=== PATIENT | male | born 1940 | race Caucasian/White ===

== ENCOUNTER 2016-03-03 09:18 | Emergency (ER) | payer OTHER, MEDICARE ==
[2016-03-03 09:35] VITALS: TEMP 98
--- NOTE | 2016-03-03 10:16 | UCPHY ---
H & P Time Seen by Provider: 03/03/16 10:07 Patient Type: Established HPI/ROS: This patient presents with a chief complaint of pain in his right foot which he localizes to the plantar surface in the area of the 1st MP joint. This been present for or almost a week now and is mostly present when he walks. In addition he has pain in his right elbow which has also been present for a week and has increased with movement. Finally he has an abrasion on his right 4th toe on the extensor surface which occurred this morning when he banged. This is not particularly painful. He denies any fever or constitutional symptoms. Smoking Status: Former smoker Physical Exam: This patient is alert although his memory seems generally poor. His gait is antalgic. He has obvious moderate to severe psoriasis. Examination of the foot reveals callus formation with some erythema and some scales which have extended into the subdermal area. This area is not particularly swollen but it is tender. The extensor surface is unremarkable. Examination of the elbow reveals several abrasions which are relatively new surrounded by erythema extending 6 or 7 cm in radius. Constitutional: Initial Vital Signs Temperature (C) 36.6 C 03/03/16 09:25 Heart Rate 78 03/03/16 09:25 Respiratory Rate 20 03/03/16 09:25 Blood Pressure 117/87 H 03/03/16 09:25 O2 Sat (%) 96 03/03/16 09:25 O2 Delivery Mode Room Air Allergies/Adverse Reactions: Sulfa (Sulfonamide Antibiotics) Allergy (Intermediate, Verified 03/10/15 10:52) Home Medications: Medication Instructions Recorded Aspirin [Aspirin 81mg] 81 mg PO MOWEFR@04/18/11 Carvedilol [Coreg] 6.25 mg PO BIDMEAL 04/18/11 Clopidogrel Bisulfate [Plavix] 75 mg PO DAILY 04/18/11 Cyanocobalamin (Vitamin B-12) 2,000 mcg PO DAILY 04/18/11 [Vitamin B-12] DULoxetine [Cymbalta] 30 mg PO DAILY 04/18/11 Levothyroxine Sodium [Synthroid] 88 mcg PO DAILY 04/18/11 Carver-3 Ethyl Est-Lovaza [Lovaza 1 1 gm PO BID@04/18/11 gm] Ranitidine HCl [Ranitidine HCl 150 300 mg PO BID 04/18/11 mg] Rosuvastatin Calcium [Crestor] 10 mg PO DAILY@1700 04/18/11 Sotalol HCl [Sotalol] 80 mg PO BID 04/18/11 clonazePAM [KlonOPIN] 0.5 mg PO HS 04/18/11 lamOTRIGine [Lamictal Odt] 200 mg PO HS 04/18/11 DULoxetine [Cymbalta] 60 mg PO HS 11/09/12 Donepezil HCl [Aricept 5 MG (RX)] 5 mg PO HS 11/09/12 Ascorbic Acid [Vitamin C 250 mg 03/10/15 (OTC)] Cholecalciferol Vit D3 [Vitamin D3 03/10/15 (OTC)] Cephalexin [Keflex] 500 mg PO QID #28 cap 03/03/16 Medical Decision Making ED Course/Re-evaluation: The abrasion was cleaned and dressed. Differential Diagnosis: This patient seems to have 2 areas of cellulitis which should respond well to oral and outpatient treatment. Departure - Departure Disposition: Home, Routine, Self-Care Clinical Impression: Cellulitis of foot, Cellulitis of right elbow Condition: Good Instructions: Cellulitis (ED), Abrasion (ED) Additional Instructions: Keep your appointment with the machine plug shaper next week as previously scheduled. This is very important. If your foot and elbow pain and not improved in 3 days you should return. Cause for concern would be increasing pain or fever. Apply heat to both your foot an 2 year elbow several times daily. Avoid painful activities If you notice spreading redness, swelling, increasing pain and tenderness or tomeka pus you should return immediately since these findings frequently indicate infection. It usually takes 3 days from the time of injury for an infection to begin. Referrals: Rosemary Ayala MD [Primary Care Provider] - As per Instructions Prescriptions: Cephalexin [Keflex] 500 mg PO QID #28 cap - PQRS PQRS Measurement: Not applicable
[2016-03-03 15:50] VITALS: BP 135/62; PULSE 77; RESP 18; O2SAT 97
== END 2016-03-03 10:35 | disposition home or self-care (01) ==
LOC: CED 09:18
DX: L03.115 Cellulitis of right lower limb (principal); L03.113 Cellulitis of right upper limb; S90.414A Abrasion, right lesser toe(s), initial encounter; L40.9 Psoriasis, unspecified; Z87.891 Personal history of nicotine dependence
CPT/HCPCS: 99214-PO; G0463-PO

== ENCOUNTER → 2016-03-17 | Outpatient (CLI) | payer OTHER, MEDICARE | LOC: BHFA 14:45 | PROVIDERS: ATTEND Internal Medicine Cardiovascular Disease | DX: I47.2 Ventricular tachycardia (principal) ==

== ENCOUNTER → 2016-04-28 | Outpatient (CLI) | payer OTHER, MEDICARE | LOC: BHFA 13:15 | PROVIDERS: ATTEND Internal Medicine Cardiovascular Disease | DX: I47.2 Ventricular tachycardia (principal); I25.10 Atherosclerotic heart disease of native coronary artery without angina pectoris; I25.5 Ischemic cardiomyopathy ==

== ENCOUNTER → 2016-05-07 | Outpatient (CLI) | payer OTHER, MEDICARE | LOC: BHCLAF 09:15 | PROVIDERS: ATTEND Internal Medicine Interventional Cardiology | DX: R01.1 Cardiac murmur, unspecified (principal); I25.10 Atherosclerotic heart disease of native coronary artery without angina pectoris | CPT/HCPCS: 93306-PO; 93880-PO ==

== ENCOUNTER 2016-06-15 06:51 | Observation (INO) | payer OTHER, MEDICARE ==
[2016-06-15] MEDS ORDERED: MIDAZOLAM 2 MG/2 ML VIAL IVP ONE (07:00)
[2016-06-15] MEDS ORDERED: NS 1,000 ML IV ONE (07:00)
[2016-06-15] MEDS ORDERED: ISOPROTERENOL HCL 0.2 MG/ML 5ML AMP ONE (07:14)
[2016-06-15] MEDS ORDERED: LIDOCAINE 1% 30 ML SDV ONE (07:14)
[2016-06-15] MEDS ORDERED: BUPIVACAINE 0.5% 30 ML SDV ONE (07:15)
[2016-06-15] MEDS ORDERED: HEPARIN 10,000 UNIT/10 ML MDV ONE ×2 (07:15→08:24)
--- NOTE | 2016-06-15 07:25 | CPEKG ---
Heart Rate: 77 RR Interval: 779 P-R Interval: 256 QRSD Interval: 90 QT Interval: 408 QTC Interval: 462 QRS [place]: 37 T Wave [place]: 125 EKG Severity - ABNORMAL ECG - EKG Impression: ATRIAL-PACED RHYTHM EKG Impression: ABNRM R PROG, PRIOR ASMI OR LEAD PLACEMENT EKG Impression: ABNORMAL T, CONSIDER ISCHEMIA, LATERAL LEADS Electronically Signed By: Barber Jones 15-Jun-2016 14:43:00
[2016-06-15 07:41] LABS: % IMMATURE GRANULYOCYTES 0.3 % (0.0-1.1); ABSOLUTE IMMATURE GRANULOCYTES 0.02 10^3/uL (0.00-0.10); ADD DIFF? NO; ADD MORPH? NO; ADD SCAN? NO; ATYPICAL LYMPHOCYTE FLAG 10 (0-99); FRAGMENT RBC FLAG 0 (0-99); HEMATOCRIT 45.8 % (40.0-51.0); HEMOGLOBIN 15.9 g/dL (13.7-17.5); LEFT SHIFT FLG 0 (0-99); LIPEMIA HEMOLYSIS FLAG 90 (0-99); MEAN CELL HEMOGLOBIN 31.8 pg (27.9-34.1); MEAN CELL HEMOGLOBIN CONCENTR. 34.7 g/dL (32.4-36.7); MEAN CELL VOLUME 91.6 fL (81.5-99.8); MEAN PLATELET VOLUME 8.8 fL (8.7-11.7); PLATELET CLUMPS FLAG 20 (0-99); PLATELET COUNT 226 10^3/uL (150-400); RED CELL DISTRIBUTION WIDTH 12.4 % (11.5-15.2)
[2016-06-15 07:49] LABS: INR 0.96 (0.83-1.16); PROTIME(PATIENT) 12.7 SEC (12.0-15.0)
[2016-06-15 07:50] LABS: APTT 26.7 SEC (23.0-38.0)
[2016-06-15] MEDS ORDERED: IOPAMIDOL (ISOVUE-370) 150 ML BTL IV ONE (07:54)
[2016-06-15 07:59] LABS: ANION GAP 8 mEq/L (8-16); CALCIUM 9.3 mg/dL (8.5-10.4); CARBON DIOXIDE 27 mEq/l (22-31); CHLORIDE 101 mEq/L (97-110); GLOMERULAR FILTRATION RATE > 60; GLUCOSE 152 mg/dL (70-100); POTASSIUM 4.3 mEq/L (3.5-5.2); SODIUM 136 mEq/L (134-144)
[2016-06-15] MEDS ORDERED: HEPARIN/DEXTROSE 25,000 UNIT/500 ML BAG ONE (08:24)
[2016-06-15] MEDS ORDERED: fentaNYL 250 MCG/5 ML INJ ONE (08:32)
[2016-06-15] MEDS ORDERED: REMIFENTANIL HCL 1 MG VIAL ONE ×2 (08:32→11:44)
[2016-06-15] MEDS ORDERED: PROPOFOL/EMULSION 500 MG/50 ML BOTTLE IV ONE ×2 (08:32→11:44)
[2016-06-15] MEDS ORDERED: DOPamine/DEXTROSE/250 ML BAG IV ONE (09:46)
[2016-06-15] MEDS ORDERED: SUGAMMADEX SODIUM 200 MG/2 ML VIAL IVP ONE (12:34)
[2016-06-15] MEDS ORDERED: PROTAMINE SULFATE 50 MG/5 ML VIAL IVP ONE (12:35)
[2016-06-15] MEDS ORDERED: ATROPINE SULFATE 1 MG/10 ML SYR ONE (13:26)
[2016-06-15] MEDS ORDERED: ACETAMINOPHEN 325 MG TAB PO PRN (13:50)
--- NOTE | 2016-06-15 13:50 | EPPROC ---
Electrophysiology Procedure Note: ELECTROPHYSIOLOGIC STUDY AND CATHETER MEDIATED ABLATION OF SCAR ASSOCIATED VT Procedures performed: 99155 Arterial catheterization for monitoring during procedure 46873-98 EP evaluation with RA/RV/LA pace/record, with arrhythmia induction 21391-38 EP evaluation with RA/RV pace record, insert/reposition catheter, with arrhythmia induction 20515 Intracardiac catheter ablation, VT arrhythmogenic focus Fluoroscopy INDICATION: Sustained VT, ICD discharge The patient arrived in the Electrophysiology Laboratory in the fasting state. The right clavicular region, right groin, and left groin area were prepped and draped in the usual sterile manner. Appropriate non-invasive blood pressure, pulse oximetry and end-tidal CO2 monitoring was established. Anesthesiologist Dr. Chelsie Lyons administered anesthesia. All catheters were placed percutaneously using the modified Seldinger technique , and advanced into position under fluoroscopic guidance. One #7 Armenian deflectable octapolar electrode catheter was advanced to the His position via the right femoral vein and then placed in the distal coronary sinus One #8 Armenian sheath was placed into the right femoral artery using modified Seldinger technique and was used for retroaortic left ventricular access. Coronary angiography was performed Left main 30% distal LAD 100% proximal occlusion. SVG to LAD was noted to be occluded in 2012, was not reinjected. EDOUARD is not attached to a coronary,noted in 2014, was not reinjected. LCX Moderate diffuse disease RCA moderate diffuse disease, PDA 50-60% proximal lesion. Collaterals to LAD LV gram anterior and apical akinesis LVEF 25% Programmed stimulation was performed from the right atrium, right ventricle and CS (left atrium). All retrograde conduction occurred over the AV node. ICD therapies were programmed to off for the duration of the procedure and confirmed programmed back on at the end of the procedure. The patient arrived to the electrophysiology laboratory in normal sinus rhythm. We elected not to induce VT given marginal LV function and advanced age. Heparin bolus was administered intravenously followed by continuous infusion with periodic change of the heparin infusion rate to maintain the ACT in the range of 300 seconds. Pentaray catheter was placed into the LV via retroaortic approach and detailed 3D voltage map (>1800 points) of LV was performed. Low voltage (<0.5mV) areas were seen at the anterior and anteroseptal alcala and apex. Ablation was done using 3.[address] SF catheter and was limited to the LV scar areas targeting the mid diastolic potentials seen within the discrete scars and in the periinfacrct areas. Fragmented potentials were also seen in the proximal LBB and HB area, these were not ablated due to risk of complete AV block. If patient has recurrent VT , consider placing a BiV ICD followed by repeat ablation in the proximal LBB area. Protamine was administered. Patient was transferred to the ICU in stable condition. CONCLUSIONS: 1. Scar related ventricular tachycardia related to anterior, anteroseptal and apical scar. 2. Successful ablation procedure. 3. No apparent complications. Patient Problems: Problems Problem Status Onset ACS (acute coronary syndrome) Acute CHF (congestive heart failure) Acute
[2016-06-15] MEDS ORDERED: FUROSEMIDE 20 MG TAB PO PRN (13:52)
[2016-06-15] MEDS ORDERED: clonazePAM 0.5 MG TAB PO PRN (13:52)
[2016-06-15] MEDS ORDERED: fentaNYL 100 MCG/2 ML INJ IVP PRN (13:54)
--- NOTE | 2016-06-15 14:24 | CPEKG ---
Heart Rate: 70 RR Interval: 857 P-R Interval: 308 QRSD Interval: 134 QT Interval: 484 QTC Interval: 523 QRS [place]: -69 T Wave [place]: 111 EKG Severity - ABNORMAL ECG - EKG Impression: ATRIAL-PACED RHYTHM EKG Impression: LEFT ANTERIOR FASCICULAR BLOCK Electronically Signed By: Barber Jones 16-Jun-2016 12:23:06
[2016-06-15 15:28] LABS: ANION GAP 7 mEq/L (8-16); CALCIUM 8.7 mg/dL (8.5-10.4); CARBON DIOXIDE 22 mEq/l (22-31); CHLORIDE 104 mEq/L (97-110); CREATININE 0.8 mg/dL (0.7-1.3); GLOMERULAR FILTRATION RATE > 60; GLUCOSE 186 mg/dL (70-100); MAGNESIUM 1.8 mg/dL (1.6-2.3); POTASSIUM 4.8 mEq/L (3.5-5.2); SODIUM 133 mEq/L (134-144); SPECIMEN HEMOLYSIS 144
[2016-06-15] MEDS ORDERED: ROSUVASTATIN CALCIUM 40 MG TAB PO SCH (17:00)
[2016-06-15] MEDS: GABAPENTIN 300 MG CAP PO SCH ×2 (17:02→21:02)
[2016-06-15] MEDS: CARVEDILOL 6.25 MG TAB PO SCH (18:40)
[2016-06-15] MEDS: OXYCODONE/APAP 5/325 TAB PO PRN ×2 (20:57→22:22)
[2016-06-15] MEDS: SOTALOL HCL 80 MG TAB PO SCH (20:59)
[2016-06-15] MEDS ORDERED: DULoxetine 60 MG CAP PO SCH (21:00)
[2016-06-15] MEDS ORDERED: lamoTRIgine 100 MG TAB PO SCH (21:00)
[2016-06-15] MEDS ORDERED: RANITIDINE HCL 300 MG PO SCH (21:00)
[2016-06-15 22:24] VITALS: TEMP 99.3
[2016-06-16 05:05] LABS: % IMMATURE GRANULYOCYTES 0.7 % (0.0-1.1); ABSOLUTE IMMATURE GRANULOCYTES 0.08 10^3/uL (0.00-0.10); ADD DIFF? NO; ADD MORPH? NO; ADD SCAN? NO; ATYPICAL LYMPHOCYTE FLAG 0 (0-99); FRAGMENT RBC FLAG 0 (0-99); HEMATOCRIT 36.2 % (40.0-51.0); HEMOGLOBIN 12.6 g/dL (13.7-17.5); LEFT SHIFT FLG 0 (0-99); LIPEMIA HEMOLYSIS FLAG 90 (0-99); MEAN CELL HEMOGLOBIN 32.6 pg (27.9-34.1); MEAN CELL HEMOGLOBIN CONCENTR. 34.8 g/dL (32.4-36.7); MEAN CELL VOLUME 93.5 fL (81.5-99.8); PLATELET CLUMPS FLAG 0 (0-99); PLATELET COUNT 174 10^3/uL (150-400); RED BLOOD CELL COUNT 3.87 10^6/uL (4.40-6.38); RED CELL DISTRIBUTION WIDTH 12.2 % (11.5-15.2)
[2016-06-16 05:15] LABS: INR 1.01 (0.83-1.16); PROTIME(PATIENT) 13.2 SEC (12.0-15.0)
[2016-06-16 05:26] LABS: ANION GAP 5 mEq/L (8-16); CARBON DIOXIDE 26 mEq/l (22-31); CHLORIDE 102 mEq/L (97-110); CREATININE 0.8 mg/dL (0.7-1.3); GLOMERULAR FILTRATION RATE > 60; GLUCOSE 134 mg/dL (70-100); POTASSIUM 4.1 mEq/L (3.5-5.2); SODIUM 133 mEq/L (134-144)
[2016-06-16 05:37] LABS: TROPONIN I 0.343 ng/mL (0-0.034)
[2016-06-16 05:58] LABS: CK-MB INTERPRETATION POSITIVE (NEGATIVE); CREATINE KINASE-MB FRACTION 5.89 ng/mL (0-3.19)
[2016-06-16] MEDS ORDERED: LEVOTHYROXINE 88 MCG TAB PO SCH (06:00)
[2016-06-16] MEDS: CARVEDILOL 6.25 MG TAB PO SCH (08:28)
[2016-06-16] MEDS: GABAPENTIN 300 MG CAP PO SCH (08:29)
--- NOTE | 2016-06-16 08:43 | CPEKG ---
Heart Rate: 70 RR Interval: 857 P-R Interval: 268 QRSD Interval: 136 QT Interval: 488 QTC Interval: 527 QRS [place]: -64 T Wave [place]: 97 EKG Severity - ABNORMAL ECG - EKG Impression: ATRIAL-PACED RHYTHM EKG Impression: LEFT VENTRICULAR HYPERTROPHY EKG Impression: LEFT ANTERIOR FASCICULAR BLOCK Electronically Signed By: Barber Jones 16-Jun-2016 12:22:17
[2016-06-16] MEDS: SOTALOL HCL 80 MG TAB PO SCH (08:47)
[2016-06-16] MEDS ORDERED: TAMSULOSIN HCL 0.4 MG CAP PO SCH (09:00)
[2016-06-16] MEDS ORDERED: ASPIRIN 325 MG TAB PO SCH (09:00)
[2016-06-16] MEDS ORDERED: CLOPIDOGREL BISULFATE 75 MG TAB PO SCH (09:00)
[2016-06-16] MEDS ORDERED: OMEGA-3 FATTY ACIDS 1,000 MG CAP PO SCH (09:00)
[2016-06-16] MEDS ORDERED: DULoxetine 30 MG CAP PO SCH (09:00)
[2016-06-16] MEDS ORDERED: APIXABAN 5 MG TAB PO SCH (10:45)
--- NOTE | 2016-06-16 10:45 | ECHO ---
[id number] + + [address] : : [place] [address] : : [phone] + + Adult Echocardiographic Report + --------+ :Name: YUAN SWEENEY KStudy Date: 06/16/2016 09:02 AM BP: 113/58 mm Hg : : Hospital Admission Number: [id number] Locat ion: 254: :: 1940 Gender: Male Height: 66 in : :Age: 76 yrs Race: WH,White Weight: 167 l b : :Reason For Study: post EP study : : BSA: 1.9 mete rs2 : :History: VT h/o NC : + --------+ MMode/2D Measurements \T\ Calculations IVSd: 0.88 cm LVIDd: 4.5 cm FS: 16.8 % Ao root diam: LVPWd: 0.97 cm LVIDs: 3.7 cm EDV(Teich): 90.2 ml3.4 cm ESV(Teich): 58.4 ml EF(Teich): 35.3 % LVOT diam: 2.0 cmLVLd ap4: 10.5 cm SV(MOD-sp4): LVOT area: EDV(MOD-sp4): 108.0 ml 3.1 cm2 279.0 ml LVLs ap4: 10.0 cm ESV(MOD-sp4): 171.0 ml EF(MOD-sp4): 38.7 % Normal Measurement Values: + + :LVIDd (3.5-5.7cm) IVSd (0.6-1.1cm) LVPWd (0.6-1.1cm) Aortic Root (2.0-3.7cm)Left Atrium (1.5-4.0cm): :LV Vol(d) (76-115ml) LV Vol(s) (29-48ml) Ejec Fraction (50-65%)PV Jerrod (0.6- 1.2m/s) TV Jerrod (0.4-1.0m/s) : :MV E [place]rod (0.8-1.0m/s)MV A Jerrod (0.3-1.0m/s)LVOT [place]rod (0.7-1.2m/s) Asc Ao Jerrod ( 0.9-1.8m/s) : + + Doppler Measurements \T\ Calculations MV E max jerrod: Ao V2 max: LV V1 max: PA V2 max: 40.7 cm/sec 123.5 cm/sec 107.4 cm/sec 89.0 cm/sec MV A max jerrod: Ao max PG: LV V1 max PG: PA max P.7 cm/sec 6.1 mmHg 4.6 mmHg 3.2 mmHg MV E/A: 0.64 VIVIANA(V,D): 2.7 cm2 MV dec time: 0.23 sec TR max jerrod: 223.2 cm/sec TR max P.9 mmHg RAP systole: 5.0 mmHg RVSP(TR): 24.9 mmHg Left Ventricle The left ventricle is normal in size. There is normal left ventricular wall thickness. Left ventricular systolic function is moderate to severely reduced. There is Doppler evidence for diastolic dysfunction. Ejection Fraction = 30-35%. 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 Right Ventricle The right ventricle is normal in size and function. There is a pacemaker lead in the right ventricle. Atria The left atrium is mild to moderately dilated. The Left Atrial Volume is 37 ml/m2. Right atrial size is normal. IVC not well visualized. Mitral Valve The mitral valve is normal in structure and function. There is no mitral valve stenosis. There is trace mitral regurgitation. Tricuspid Valve The tricuspid valve is normal in structure and function. There is no tricuspid stenosis. There is trace to mild tricuspid regurgitation. Right ventricular systolic pressure is 25mmHg. Aortic Valve The aortic valve is trileaflet. There is no aortic stenosis. Moderate aortic regurgitation. There is an eccentric jet of aortic insufficiency directed against the anterior mitral leaflet. Pulmonic Valve The pulmonic valve is normal in structure and function. Mild to moderate pulmonic valvular regurgitation. Great Vessels The aortic root is normal size. Pericardium/Pleural There is no pericardial effusion. Conclusion A two-dimensional transthoracic echocardiogram with M-mode and Doppler was performed. Left ventricular systolic function is moderate to severely reduced. There is Doppler evidence for diastolic dysfunction. 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 Ejection Fraction = 30-35%. The left atrium is mild to moderately dilated. The Left Atrial Volume is 37 ml/m2. IVC not well visualized. There is trace mitral regurgitation. There is trace to mild tricuspid regurgitation. Right ventricular systolic pressure is 25mmHg. Moderate aortic regurgitation. There is an eccentric jet of aortic insufficiency directed against the anterior mitral leaflet. Mild to moderate pulmonic valvular regurgitation. There is no pericardial effusion. Final Reading Physician: Emilio Kirby MD electronically signed on 06/16/2016 10:44 AM Ordering Physician: Emilio Kirby Performed By: Zoila Raya
[2016-06-16 10:57] VITALS: BP 129/57; PULSE 86; RESP 18; O2SAT 95
--- NOTE | 2016-06-16 17:59 | GDS ---
[f rep st] DISCHARGE SUMMARY ADMITTING DIAGNOSES: 1. Ischemic cardiomyopathy. 2. Sustained ventricular tachycardia with implantable cardioverter-defibrillator shocks. 3. Atrial insufficiency. DISCHARGE DIAGNOSES: 1. Ischemic cardiomyopathy. 2. Sustained ventricular tachycardia status post ventricular tachycardia ablation. 3. Atrial insufficiency. BRIEF HISTORY: This is a 76-year-old man with a prior history of ischemic cardiomyopathy and a dual chamber ICD. He has recently received treatments with antitachycardia pacing as well as shocks for ventricular tachycardia episodes, despite taking sotalol 160 mg b.i.d. Previously, he had taken am iodarone. However, that caused peripheral neuropathy which resolved after stopping the amiodarone. HOSPITAL COURSE: He underwent scar related VT ablation. This was anterior, anteroseptal and apical scar. This was done by Dr. Kirby. There were also fragmented potentials seen in the proximal left b undle branch and HB area. These were not ablated due to the risk of complete AV block. Prior to VT ablation, he had an angiogram done, results noted later. He did well overnight, without any VT. His groin site at the time of discharge was without bleeding , drainage or swelling. He did require a straight catheterization due to the inability to urinate a fter the procedure. This morning, he did have red urine with some clots in it noted. During the morning, he drank more water and his next urination was dark yellow without any blood noted in his urine. Lita was star skyler. He will take this for a month along with his other antiplatelet medications due to the signifi cant amount of ablation done. Physical exam: Vital signs: Blood pressure is 105/56, pulse is 71, respirations 18, O2 saturation is 94% on 2 L. General: He is alert and oriented. He is in no acute distress. Cardiac: Regular rate and rhythm, with a 2/6 systolic murmur. Lungs are clear to auscultation. Abdomen is soft and nontender. Extremities are warm. No discoloration. No lower extremity edema. Groin site is witho ut bleeding, swelling or ecchymosis. Lab work: WBC is 11, hemoglobin is 12.6, hematocrit is 36.2, platelets are 174. Sodium is 133, pot assium 4.1, chloride 102, bicarb 26, BUN 17, creatinine 0.8, glucose 134. CK-MB is 5.89, troponin i s 0.343. These are elevated, which is expected after ablation. Procedures done during hospitalization: Echocardiogram done on the day of discharge, his EF was 30% to 35%, moderate AI and no effusion. Coronary angiogram done prior to VT ablation demonstrated 50% left main. The LAD was 100% occluded proximally. The vein graft to the LAD was noted to be occlud ed in 2012. The EDOUARD was noted to not be attached to a coronary in 2014. The left circumflex had m oderate diffuse disease. The RCA had moderate diffuse disease with the PDA, with 50% to 60% proxima l occlusion. There were collaterals to the LAD. LV gram demonstrated anterior and apical akinesis, with an EF of 25%. DISCHARGE MEDICATIONS: Please see discharge medication reconciliation. Of note, he was started on Eliquis 5 mg p.o. b.i.d. to be taken for 1 month post ablation. DISCHARGE INSTRUCTIONS: Reviewed with patient. As well, he was given written instructions. No lif ting over 10 pounds for 1 week. No vigorous activity for 1 week. He is not to drive at all. FOLLOWUP: He has a pacemaker check at the [place] office on June 23, 2016 at 11:30, and a followup with Dr. Kirby on July 15, 2016 at 9:45. /[id number]/MODL
== END 2016-06-16 12:26 | disposition home or self-care (01) ==
LOC: FCATH 06:51 → F2N 13:00 → INTOOBSV 13:00
PROVIDERS: ADMIT Internal Medicine Cardiovascular Disease; ATTEND Internal Medicine Cardiovascular Disease
PROC: 02563ZZ Destruction of Right Atrium, Percutaneous Approach (ICD-10-PCS; principal; 2016-06-15)
PROC: 02573ZZ Destruction of Left Atrium, Percutaneous Approach (ICD-10-PCS; principal; 2016-06-15)
PROC: 5A1223Z Performance of Cardiac Pacing, Continuous (ICD-10-PCS; principal; 2016-06-15)
PROC: B2161ZZ Fluoroscopy of Right and Left Heart using Low Osmolar Contrast (ICD-10-PCS; principal; 2016-06-15)
PROC: 4A023FZ Measurement of Cardiac Rhythm, Percutaneous Approach (ICD-10-PCS; principal; 2016-06-15)
PROC: 025K3ZZ Destruction of Right Ventricle, Percutaneous Approach (ICD-10-PCS; principal; 2016-06-15)
PROC: B2111ZZ Fluoroscopy of Multiple Coronary Arteries using Low Osmolar Contrast (ICD-10-PCS; principal; 2016-06-15)
DX: I25.5 Ischemic cardiomyopathy (principal); I47.2 Ventricular tachycardia; Z95.810 Presence of automatic (implantable) cardiac defibrillator
CPT/HCPCS: 93005; 93306; 93458; 93620; 93621; 93654; C1731; C1732; J1265; J1644; J2250; J2704; J2720; J3010; Q9967; J0461

== ENCOUNTER 2016-06-20 16:20 | Inpatient (IN) | payer OTHER, MEDICARE ==
--- NOTE | 2016-06-20 16:22 | EDPHY ---
H & P Time Seen by Provider: 06/20/16 16:21 - Medical/Surgical History Hx Asthma: No Hx Chronic Respiratory Disease: No Hx Diabetes: No Hx Cardiac Disease: Yes Hx Renal Disease: No Hx Cirrhosis: No Hx Alcoholism: No Hx HIV/AIDS: No Hx Splenectomy or Spleen Trauma: No Other PMH: Cardiac disease, hyperthyroid, open heart surgery, hernia repair, hep C - Social History Smoking Status: Former smoker Constitutional: Initial Vital Signs Temperature (C) 36.1 C 06/20/16 16:30 Heart Rate 75 06/20/16 16:30 Respiratory Rate 14 06/20/16 16:30 Blood Pressure 111/73 06/20/16 16:30 O2 Sat (%) 95 06/20/16 16:30 O2 Delivery Mode Room Air Allergies/Adverse Reactions: Sulfa (Sulfonamide Antibiotics) Allergy (Intermediate, Verified 03/10/15 10:52) Home Medications: Medication Instructions Recorded Ranitidine HCl [Ranitidine HCl 150 300 mg PO BID 04/18/11 mg] Aspirin [Aspirin 325 mg (*)] 325 mg PO DAILY 06/15/16 Carvedilol [Coreg (*)] 6.25 mg PO BIDMEAL 06/15/16 Clopidogrel Bisulfate [Plavix (*)] 75 mg PO DAILY@1730 06/15/16 DULoxetine [Cymbalta 30 MG (*)] 30 mg PO DAILY18 06/15/16 DULoxetine [Cymbalta 60 MG (*)] 60 mg PO DAILY 06/15/16 Gabapentin [Neurontin 300 MG (*)] 900 mg PO TID 06/15/16 Herbals/Supplements -Info Only 1 ea PO DAILY 06/15/16 Levothyroxine [Synthroid 88 mcg 88 mcg PO DAILY06 06/15/16 (*)] [place]-3 Fatty Acids [Fish Oil 1000 2,000 mg PO BID 06/15/16 mg (*)] Rosuvastatin Calcium [Crestor 40mg 40 mg PO DAILY@17 06/15/16 (*)] Sotalol HCl [Betapace 80 MG (*)] 80 mg PO BID 06/15/16 Tamsulosin HCl [Flomax 0.4 MG (*)] 0.4 mg PO DAILY18 06/15/16 clonazePAM [Klonopin (*)] 0.5 - 1 mg PO BID PRN 06/15/16 lamoTRIgine [LamICTAL 100 MG (*)] 200 mg PO HS 06/15/16 Acetaminophen [Tylenol 325mg (*)] 325 - 650 mg PO Q4HRS PRN #0 tab 06/16/16 Apixaban [Eliquis] 5 mg PO BID #60 tab 06/16/16 Medical Decision Making - Diagnostics Imaging Results: Imaging Impressions Cervical Spine CT 06/20/16 16:35 Impression: Subacute right subdural hematoma right parietal region up to 10 mm in thickness. No significant mass effect. Underlying cerebral atrophy. Mild to moderate periventricular and deep hemispheric white matter change which can be seen with small vessel ischemic disease. CT Cervical Spine Without Contrast Technique: 1.5-mm helical images were obtained of the cervical spine without contrast. Multiplanar reformation was performed. Radiation dose reduction technique was utilized. Findings: No evidence for fracture. Mild reversal of the normal lordotic curvature centered over C4-C5 and C5-C6. There is disk height narrowing, degenerative endplate change, and osteophytosis at C4-C5 through C6-C7. There is multilevel uncovertebral joint hypertrophy and spurring and facet arthropathy. Multilevel degenerative disk and degenerative joint disease cervical spine. This more pronounced at C4-C5 through C6-C7 with moderate central spinal canal and moderate to severe neural foraminal narrowing. Impression: No evidence for acute fracture. Multilevel degenerative change cervical spine. Results called and discussed with Cody Luis MD on June 20, 2016 [address] 06/20/16 16:35 Impression: Subacute right subdural hematoma right parietal region up to 10 mm in thickness. No significant mass effect. Underlying cerebral atrophy. Mild to moderate periventricular and deep hemispheric white matter change which can be seen with small vessel ischemic disease. CT Cervical Spine Without Contrast Technique: 1.5-mm helical images were obtained of the cervical spine without contrast. Multiplanar reformation was performed. Radiation dose reduction technique was utilized. Findings: No evidence for fracture. Mild reversal of the normal lordotic curvature centered over C4-C5 and C5-C6. There is disk height narrowing, degenerative endplate change, and osteophytosis at C4-C5 through C6-C7. There is multilevel uncovertebral joint hypertrophy and spurring and facet arthropathy. Multilevel degenerative disk and degenerative joint disease cervical spine. This more pronounced at C4-C5 through C6-C7 with moderate central spinal canal and moderate to severe neural foraminal narrowing. Impression: No evidence for acute fracture. Multilevel degenerative change cervical spine. Results called and discussed with Cody Luis MD on June 20, 2016 at 1718 hours. Hip X-Ray 06/20/16 16:35 Impression: Mild degenerative change. No evidence for acute fracture. Pelvis CT 06/20/16 17:25 Impression: 1. No evidence for acute fracture. 2. Intramuscular hematoma right rectus femoris muscle. 3. Other chronic findings, as above. Results called and discussed with Cody Luis MD on June 20, 2016 at 1752 hours. ED Course/Re-evaluation: CHIEF COMPLAINT: Multiple falls HISTORY OF PRESENT ILLNESS: This patient is an anticoagulated 76 year old male arriving today with his family member following four falls today. He states his legs are weak due to sciatica and while trying to pull himself up, he fell backwards and struck his head. His family member at bedside reports he has fallen four times today. He reports pain in his right hip, and is unable to lift it due to the pain. He denies neck pain. He had an ablation this week, and has been prescribed Eliquis for the next month. He also takes Plavix and Aspirin. REVIEW OF SYSTEMS: A 10 point review of systems was performed and is negative with the exception of the elements mentioned in the history of present illness. PHYSICAL EXAM: HR, BP, O2 Sat, RR. Temp noted General Appearance: Alert, well hydrated, appropriate, and non-toxic appearing. Head: Abrasions to right parietal scalp and upper lip. Eyes: Pupils equal, round, reactive to light and accommodation, EOMI, no trauma , no injection. Ears: Clear bilaterally, no perforation, normal landmarks Nose: Minor abrasions. Mo rhinorrhea, clear. Throat: There is no erythema or exudates, no lesions, normal tonsils, mucus membranes moist. Neck: Supple, nontender, no lymphadenopathy. Respiratory: No retractions, no distress, no wheezes, and no accessory muscle use. Lungs are clear to auscultation bilaterally. Cardiovascular: Regular rate and rhythm, no murmurs, rubs, or gallops. Right dorsalis pedis pulse intact. Good capillary refill all extremities. Gastrointestinal: Abdomen is soft, nontender, non-distended, no masses, no rebound, no guarding, no peritoneal signs. Musculoskeletal: Right leg unable to be lifted due to pain. Otherwise normal active ROM of other extremities. Neurological: Alert, appropriate, and interactive. Nonfocal neuro exam. Skin: No rashes, good turgor, no nodules on palpation. Past medical history: Sciatica, Pacemaker. Past surgical history: Back Family history: Noncontributory Social history: Lives in [place]. Daughter at bedside. DIAGNOSTICS/PROCEDURES/CRITICAL CARE TIME: CT Head, CT Neck, X-ray hip, CT Hip. Subacute right subdural hematoma right parietal region. Hematoma in right rectus femoris. The 12 lead EKG was interpreted by myself. See hard copy and/or "tracemaster" electronic copy for interpretation. DIFFERENTIAL DIAGNOSIS: The differential diagnosis for the patient's trauma included but was not limited to subdural hematoma, intracranial injury, long bone and pelvic bone fractures, spinal injury, intra-abdominal injury, and intra-thoracic injury. MEDICAL DECISION MAKING: This patient is an anticoagulated 76 year old male with multiple falls, including striking his head today. He is currently taking Eliquis, Plavix, and Aspirin. He has multiple minor abrasions to his head, and his ROM in his right leg is limited due to pain in his hip. He is neurovascularly intact. Plan for CT head and neck. We will also x-ray hip due to his pain and difficulty lifting his leg. IV established, labs drawn. 17:[address] Dickey regarding head CT. Small right-sided subdural hematoma. 17:[address] Park, neurosurgeon. Hold all anticoagulants. Plan to administer TXA and platelets. He will follow patient's admission. Plan for CT pelvis w/o contrast. X-ray inconclusive for pelvic fracture. 17:28 Spoke with hospitalist service regarding admission. Dr. Ackerman accepts admission for subdural hematoma and history of multiple falls. 17:[address] Dickey regarding CT pelvis. No fracture, hematoma in right rectus femoris. - Data Points Laboratory Results: Laboratory Results 06/20/16 16:10 06/20/16 16:10 06/20/16 06/20/16 16:10 16:10 WBC 5.95 10^3/uL 10^3/uL (3.80-9.50) RBC 4.55 10^6/uL 10^6/uL (4.40-6.38) Hgb 14.7 g/dL g/dL (13.7-17.5) Hct 42.8 % % (40.0-51.0) MCV 94.1 fL fL (81.5-99.8) MCH 32.3 pg pg (27.9-34.1) MCHC 34.3 g/dL g/dL (32.4-36.7) RDW 12.4 % % (11.5-15.2) Plt Count 230 10^3/uL 10^3/uL (150-400) MPV 9.2 fL fL (8.7-11.7) Neut % (Auto) 48.6 % % (39.3-74.2) Lymph % (Auto) 35.3 % % (15.0-45.0) [place] % (Auto) 10.1 % % (4.5-13.0) Eos % (Auto) 5.2 % % (0.6-7.6) Baso % (Auto) 0.5 % % (0.3-1.7) Nucleat RBC Rel Count 0.0 % % (0.0-0.2) Absolute Neuts (auto) 2.89 10^3/uL 10^3/uL (1.70-6.50) Absolute Lymphs (auto) 2.10 10^3/uL 10^3/uL (1.00-3.00) Absolute Monos (auto) 0.60 10^3/uL 10^3/uL (0.30-0.80) Absolute Eos (auto) 0.31 10^3/uL 10^3/uL (0.03-0.40) Absolute Basos (auto) 0.03 10^3/uL 10^3/uL (0.02-0.10) Absolute Nucleated RBC 0.00 10^3/uL 10^3/uL (0-0.01) Immature Gran % 0.3 % % (0.0-1.1) Immature Gran # 0.02 10^3/uL 10^3/uL (0.00-0.10) Sodium 136 mEq/L mEq/L (134-144) Potassium 3.9 mEq/L mEq/L (3.5-5.2) Chloride 99 mEq/L mEq/L (97-110) Carbon Dioxide 29 mEq/l mEq/l (22-31) Anion Gap 8 mEq/L mEq/L (8-16) BUN 17 mg/dL mg/dL (7-23) Creatinine 0.9 mg/dL mg/dL (0.7-1.3) Estimated GFR > 60 Glucose 118 mg/dL H mg/dL (70-100) Calcium 9.3 mg/dL mg/dL (8.5-10.4) Troponin I 0.084 ng/mL H ng/mL (0-0.034) Medications Given: Discontinued Medications Tranexamic Acid 1,000 mg/ (Sodium Chloride) 110 mls @ 660 mls/hr IV ONCE ONE Stop: 06/20/16 17:36 Last Admin: 06/20/16 17:51 Dose: 110 mls Departure - Departure Disposition: [facility] Inpatient Acute Clinical Impression: Subdural hematoma, Multiple falls Thigh contusion Qualifiers: Encounter type: initial encounter Laterality: right Qualified Code(s): S70.11XA - Contusion of right thigh, initial encounter Condition: Fair Report Scribed for: Cody Luis Report Scribed by: Avelina Falcon Date of Report: 06/20/16 Time of Report: 21:21
--- NOTE | 2016-06-20 16:33 | CPEKG ---
Heart Rate: 75 RR Interval: 800 P-R Interval: 252 QRSD Interval: 132 QT Interval: 444 QTC Interval: 496 QRS Sharon: -70 T Wave Sharon: 109 EKG Severity - ABNORMAL ECG - EKG Impression: ATRIAL-PACED RHYTHM EKG Impression: NONSPECIFIC IVCD WITH LAD EKG Impression: LEFT VENTRICULAR HYPERTROPHY Electronically Signed By: Savanna Chávez 21-Jun-2016 17:25:07
[2016-06-20] MEDS ORDERED: TRANEXAMIC ACID 1,000 MG in NS 500 ML IV ONE (17:27)
[2016-06-20] MEDS ORDERED: TRANEXAMIC ACID 1,000 MG in NS 100 ML IV ONE (17:27)
[2016-06-20 17:43] LABS: % IMMATURE GRANULYOCYTES 0.3 % (0.0-1.1); ABSOLUTE IMMATURE GRANULOCYTES 0.02 10^3/uL (0.00-0.10); ADD DIFF? NO; ADD MORPH? NO; ADD SCAN? NO; ATYPICAL LYMPHOCYTE FLAG 0 (0-99); FRAGMENT RBC FLAG 0 (0-99); HEMATOCRIT 42.8 % (40.0-51.0); HEMOGLOBIN 14.7 g/dL (13.7-17.5); LEFT SHIFT FLG 0 (0-99); LIPEMIA HEMOLYSIS FLAG 90 (0-99); MEAN CELL HEMOGLOBIN 32.3 pg (27.9-34.1); MEAN CELL HEMOGLOBIN CONCENTR. 34.3 g/dL (32.4-36.7); MEAN CELL VOLUME 94.1 fL (81.5-99.8); MEAN PLATELET VOLUME 9.2 fL (8.7-11.7); PLATELET CLUMPS FLAG 10 (0-99); PLATELET COUNT 230 10^3/uL (150-400); RED BLOOD CELL COUNT 4.55 10^6/uL (4.40-6.38); RED CELL DISTRIBUTION WIDTH 12.4 % (11.5-15.2)
[2016-06-20 17:44] LABS: ANION GAP 8 mEq/L (8-16); CALCIUM 9.3 mg/dL (8.5-10.4); CARBON DIOXIDE 29 mEq/l (22-31); CHLORIDE 99 mEq/L (97-110); CREATININE 0.9 mg/dL (0.7-1.3); GLOMERULAR FILTRATION RATE > 60; GLUCOSE 118 mg/dL (70-100); POTASSIUM 3.9 mEq/L (3.5-5.2); SODIUM 136 mEq/L (134-144)
[2016-06-20 17:56] LABS: TROPONIN I 0.084 ng/mL (0-0.034)
[2016-06-20] MEDS ORDERED: HYDROmorphONE/DILAUDID 1 MG/ML SYR ONE (19:56)
[2016-06-20] MEDS ORDERED: lamoTRIgine 100 MG TAB PO SCH (20:00)
[2016-06-20] MEDS ORDERED: HYDROmorphONE/DILAUDID 1 MG/ML SYR IVP ONE (20:10)
[2016-06-20] MEDS ORDERED: D50W 25 GM/50 ML SYR IVP PRN (20:41)
[2016-06-20] MEDS: lamoTRIgine 100 MG TAB PO SCH (21:45)
[2016-06-20] MEDS: SOTALOL HCL 80 MG TAB PO SCH (21:46)
[2016-06-20] MEDS: clonazePAM 0.5 MG TAB PO PRN (21:46)
--- NOTE | 2016-06-20 21:47 | GHP ---
[f rep st] HISTORY AND PHYSICAL DATE OF ADMISSION: 06/20/2016 CHIEF COMPLAINT: Fall with head injury. HISTORY: The patient is a 76-year-old male, who had a ventricular tachycardia ablation by Dr. Kirby 5 days ago. He was discharged from the hospital on June 17. Due to the ablation, he needed to be o n Eliquis for 1 month. Unfortunately, even at the time of hospital discharge on the , his famil y was aware that his ambulation was very unstable. He did have a cardiac angiogram also at the time of during that admission. He went home and continued to get weak. He has 4 falls today. One of t hem he struck his head and has significant head trauma. He also developed a new right hip pain. For the last month, he has been dealing with increasing bilateral leg pain radiating down the back o f his legs to his ankles. He has a known spinal disease and recently had a CT scan with dye at [facility], and there were plans for outpatient epidural steroid injection. However, after the abla tion he was put on Eliquis, and they were unable to proceed. He has a history of previous low back spinal surgery and now has this pain above his previous surgical site. It is constant, severe, and now he is developing lower extremity weakness. He is very anxious to proceed with the cortisone shoaib t if he is off anticoagulation because his pain is so debilitating. Earlier today, he also noticed some transient vision changes after his fall, but that has resolved. PAST MEDICAL HISTORY: 1. Ventricular tachycardia, status post AICD and recent ablation. 2. Ischemic cardiomyopathy with ejection fraction of 30%. 3. Coronary artery disease, status post CABG at age 30. 4. Obstructive sleep apnea, status post CPAP. 5. Hyperlipidemia. 6. Diabetes type 2. 7. Psoriasis. 8. Neuropathy. 9. Hepatitis C acquired with blood transfusion. 10. Dementia. MEDICATIONS: Please see computerized record for full detailed list. ALLERGIES: Sulfa. SOCIAL HISTORY: No smoking. No alcohol. Recently moved into the [facility] assisted living. His 2 daughters are attentive and at bed side. 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 Code status is DNR. REVIEW OF SYSTEMS: Complete review of systems obtained. Review of systems is negative regarding co nstitutional, HEENT, GI, pulmonary, cardiovascular, , hematology, skin, musculoskeletal, endocrine , psych except for positives and negatives as noted in HPI. FAMILY HISTORY: Reviewed and noncontributory to presenting complaint. PHYSICAL EXAMINATION: GENERAL: Well-developed, well-nourished male, in no acute distress. VITAL S IGNS: Temperature is 36.1, pulse 75, blood pressure 111/73, satting 95% on room air. EYES: Normal conjunctivae. Pupils equal, round, reactive to light. ENT: Normal ears and nose. Hearing intact . Normal lips and teeth. Oropharynx moist. NECK: Trachea midline. No thyromegaly. CHEST: Norm al respiratory effort. Lungs clear to auscultation bilaterally. CARDIOVASCULAR: Regular rhythm. No murmur. No lower extremity edema. ABDOMEN: Soft. Nontender. No hepatosplenomegaly. SKIN: W arm, dry, intact, without rash. MUSCULOSKELETAL: No cyanosis or clubbing. Strength 5/5 in upper a nd lower extremities. NEUROLOGIC: Cranial nerves intact. Normal sensation to light touch. PSYCHI ATRIC: Alert and oriented x3. Normal affect, normal judgment and insight, and normal memory. LABORATORY DATA: White count 5.95, hematocrit 42.8, platelets 230. Sodium 136, potassium 3.9, chlo ride 99, bicarb 29, BUN 17, creatinine 0.9. Glucose 118. Troponin 0.08. EKG is paced rhythm. IMAGING DATA: Head CT shows a subacute right subdural without any mass effect. His C-spine CT is n egative. His hip x-ray is no fracture. His pelvic CT shows no fracture, but there is a hematoma in his rectus femoris muscle. This case was discussed with Dr. Luis. He has spoken with Dr. Park of Neurosurgery. They will see him in consultation. He is nonsurgical at this time. ASSESSMENT AND PLAN: 1. Subdural hematoma secondary to trauma and fall while on Eliquis, aspirin, and Plavix. Neurosurg tari will see him in consultation. He was given tranexamic acid and platelet transfusion in the [facility] room. Will hold further anticoagulation. 2. Lower extremity radiculopathy. He has severe lower extremity pain and weakness. He recently smith d a CT scan with contrast at [facility]. He is unable to do an MRI secondary to his defibrillat or. I will send the CD disc to our radiologist to review. The family is very interested in pursuin g a steroid injection during this hospitalization since Eliquis will be held. This pain and weaknes s have been debilitating and will interfere with his ability to rehab. Will continue gabapentin. 3. Right hip pain secondary to a rectus femoris muscular hematoma. Will follow H and H's and hold anticoagulation. 4. Ventricular tachycardia, status post ablation with AICD. Unfortunately, we are unable to do the Eliquis for 1 month as recommended by Dr. Kirby. I assume this does carry some risk of lack of antic oagulation. Will continue his sotalol. 5. Coronary artery disease, status post distant CABG. At the time of his ablation, they did do a c oronary angiogram and no intervention was performed. The plan is to continue his medical management . He does have a chronic mild troponin elevation. 6. Chronic systolic congestive heart failure. Ejection fraction 30%. We will watch his volume sta tus closely. We need to clarify why he is not on an JANAE inhibitor. 7. Obstructive sleep apnea. Continue CPAP at night. CODE STATUS: DNR. ADMISSION STATUS: Will admit to inpatient as he is medically complex. Anticipate greater than 2 mi dnights. DEEP VENOUS THROMBOSIS PROPHYLAXIS: SCDs only given acute head bleed. /[id number]/MODL
[2016-06-20] MEDS: GABAPENTIN 300 MG CAP PO SCH (21:48)
[2016-06-20] MEDS: FAMOTIDINE 20 MG TAB PO SCH (21:50)
[2016-06-20 22:31] LABS: COLOR YELLOW; LEUKOCYTE ESTERASE,URINE NEGATIVE (NEGATIVE); NITRITE,URINE NEGATIVE (NEGATIVE)
[2016-06-20] MEDS: INSULIN REGULAR HUMAN 100 UNIT/ML SC SCH (23:06)
[2016-06-21 05:28] LABS: % IMMATURE GRANULYOCYTES 0.5 % (0.0-1.1); ABSOLUTE IMMATURE GRANULOCYTES 0.03 10^3/uL (0.00-0.10); ADD DIFF? NO; ADD MORPH? NO; ADD SCAN? NO; ATYPICAL LYMPHOCYTE FLAG 0 (0-99); FRAGMENT RBC FLAG 0 (0-99); HEMATOCRIT 32.6 % (40.0-51.0); HEMOGLOBIN 11.4 g/dL (13.7-17.5); LEFT SHIFT FLG 0 (0-99); LIPEMIA HEMOLYSIS FLAG 90 (0-99); MEAN CELL VOLUME 94.5 fL (81.5-99.8); MEAN PLATELET VOLUME 8.9 fL (8.7-11.7); PLATELET CLUMPS FLAG 30 (0-99); PLATELET COUNT 169 10^3/uL (150-400); RED BLOOD CELL COUNT 3.45 10^6/uL (4.40-6.38); RED CELL DISTRIBUTION WIDTH 12.4 % (11.5-15.2)
[2016-06-21 05:44] LABS: ALANINE AMINOTRANSFERASE 50 IU/L (21-72); ALBUMIN 2.9 g/dL (3.5-5.0); ALKALINE PHOSPHATASE 60 IU/L (38-126); ANION GAP 6 mEq/L (8-16); ASPARTATE AMINOTRANSFERASE 45 IU/L (17-59); BILIRUBIN,TOTAL 0.8 mg/dL (0.1-1.4); BILIRUBIN-CONJUGATED 0.4 mg/dL (0.0-0.5); BILIRUBIN-UNCONJUGATED 0.4 mg/dL (0.0-1.1); CALCIUM 8.5 mg/dL (8.5-10.4); CARBON DIOXIDE 24 mEq/l (22-31); CHLORIDE 105 mEq/L (97-110); CREATININE 0.8 mg/dL (0.7-1.3); GLOMERULAR FILTRATION RATE > 60; GLUCOSE 102 mg/dL (70-100); POTASSIUM 4.1 mEq/L (3.5-5.2); SODIUM 135 mEq/L (134-144); TOTAL PROTEIN 5.6 g/dL (6.3-8.2)
[2016-06-21 05:50] LABS: TROPONIN I 0.074 ng/mL (0-0.034)
[2016-06-21] MEDS: INSULIN REGULAR HUMAN 100 UNIT/ML SC SCH ×4 (05:56→20:47)
[2016-06-21] MEDS: LEVOTHYROXINE 88 MCG TAB PO SCH (06:30)
--- NOTE | 2016-06-21 08:19 | HOSPPROG ---
Hospitalist Progress Note Assessment/Plan: #Acute subdural hematoma: from fall while on Eliquis. Repeat CTH stable. Tranexxamic acid. Hold ASA, Plavix, ASA #Rectus femoris hematoma: drop in H/H. Watch closely #VT: ablated and AICD placement this past week by Dr. Kirby. Off Eliquis with SDH. Cont Sotalol #Radiculopathy: cannot undergo MRI with defibrillator. Interested in steroid injection to allow for rehab, but needs to be off Plavix for 7 days #Compensated systolic HF (EF35%): Coreg, Statin. Not on ACEI #Weakness: PT, likely needs SNF #Mechanical falls: may be due to recent increase in Gabapentin. Will hold for now and readd at lower dose when more stable #Diet: regular DVT ppx: SCDs #Disp: transfer to med surg. Warrants inpatient admission with neuro checks, PT/ OT # Subjective: BL LE weakness. No headache Objective: Vital Signs Temp Pulse Resp BP Pulse Ox 37.1 C 71 19 124/55 H 95 06/21/16 07:34 06/21/16 07:34 06/21/16 07:34 06/21/16 07:34 06/21/16 07:34 Laboratory Results 06/21/16 05:00 06/21/16 05:00 06/20/16 06/21/16 06/22/16 05:59 05:59 05:59 Intake Total 2400 Output Total 700 Balance 1700 - Physical Exam Constitutional: no apparent distress Eyes: PERRL Ears, Nose, Mouth, Throat: moist mucous membranes Cardiovascular: regular rate and rhythym, no murmur, rub, or gallop Respiratory: no respiratory distress, no rales or rhonchi Gastrointestinal: normoactive bowel sounds, soft, non-tender abdomen Genitourinary: no bladder fullness Skin: warm, other (psoriatic skin changes lower extremities) Musculoskeletal: other (decreased strength LEs. ) Neurologic: AAOx3, CN II-XII Intact Psychiatric: interacting appropriately ICD10 Worksheet Patient Problems: Problems Problem Status Onset ACS (acute coronary syndrome) Acute CHF (congestive heart failure) Acute Subdural hematoma Acute Thigh contusion Acute Multiple falls Acute
[2016-06-21] MEDS ORDERED: HYDROmorphONE/DILAUDID 1 MG/ML SYR IVP PRN (09:14)
[2016-06-21] MEDS: DULoxetine 60 MG CAP PO SCH (09:22)
[2016-06-21] MEDS: SOTALOL HCL 80 MG TAB PO SCH ×2 (09:22→20:46)
[2016-06-21] MEDS: FAMOTIDINE 20 MG TAB PO SCH ×2 (09:22→20:47)
[2016-06-21] MEDS: CARVEDILOL 6.25 MG TAB PO SCH ×2 (09:22→17:36)
[2016-06-21] MEDS: GABAPENTIN 300 MG CAP PO SCH (09:27)
--- NOTE | 2016-06-21 10:53 | GCON ---
[f rep st] CONSULTATION DATE OF CONSULTATION: 06/21/2016 REASON FOR CONSULTATION: Subdural hematoma, status post fall. HOSPITAL COURSE/HISTORY/MAJOR MEDICAL FINDINGS: The patient is a 76-year-old gentleman who is well known to Dr. Park's office for evaluation of his lumbar spinal disease. He states that approximate ly 5 days ago, he underwent an ablation for ventricular tachycardia with Dr. Kirby. He was discharged from the hospital at that time on June 17 and was placed on Eliquis for approximately 1 month. He i s also on Plavix and aspirin as well. He also recently was started on gabapentin for his chronic le g pain and radiculopathy. The patient did have a fall on the and found that he was continuing to get weak. He also developed some new right pain on onset of fall. In regard to his lower back and radiating pain, nonsurgical options were being addressed with the anuel razo and workup in hopes that he could get an outpatient injection; however, with recent Eliquis, karely buck is unable to proceed with that due to the risk of bleeding. This morning, he denies any headache, nausea, vomiting, dizziness, or change in vision or smell. He states his only complaint is his low back and his leg pain. REVIEW OF SYSTEMS: Negative other than what is stated in HPI. Please see the pertinent negatives, pertinent positives. PAST MEDICAL HISTORY: Significant for ventricular tachycardia status post AICD and recent ablation; ischemic cardiomyopathy with an ejection fraction of 30%; coronary artery disease, status post CABG at age 30; obstructive sleep apnea; hyperlipidemia; diabetes; psoriasis; neuropathy; hepatitis C; a nd dementia. FAMILY HISTORY: Patient does have a strong family history of cardiac disease on both his mother's a nd father's side. SOCIAL HISTORY: Patient does not smoke, use any alcohol, or illicit drugs. He currently lives in [facility]. His daughter is at bedside this morning. ALLERGIES: Sulfa. HOME MEDICATIONS: 1. Tylenol 325 mg 1-2 tabs q.4 hours p.r.n. pain. 2. Eliquis 5 mg 1 p.o. b.i.d. 3. Aspirin 325 mg 1 p.o. q. day. 4. Plavix 75 mg 1 p.o. q. day. 5. [place]-3 fish oil 2000 units p.o. b.i.d. 6. Coreg 6.25 mg 1 p.o. b.i.d. 7. Multivitamins. 8. Klonopin 0.5 mg 1 p.o. b.i.d. 9. Cymbalta 30 mg 1 p.o. q. day and 60 mg p.o. q.h.s. 10. Gabapentin 900 mg t.i.d. 11. Lamictal 100 mg 2 p.o. q.h.s. 12. Levothyroxine 88 mcg 1 p.o. q. day. 13. Ranitidine 150 mg 1 p.o. q. day. 14. Crestor 40 mg 1 p.o. q. day. 15. Betapace 80 mg 1 p.o. b.i.d. 16. Flomax 0.4 mg 1 p.o. q.h.s. PHYSICAL EXAMINATION: VITAL SIGNS: BP 125/55, pulse is 71. He is 95% on room air. Temperature 37 .1. GENERAL: Patient is in no acute distress. He is alert and oriented x3. Answers questions maynor ropriately, and his affect appropriate for the given situation. NEUROLOGIC: Cranial nerves 2-12 ar e grossly intact. EOMI and PERRLA. Pronator drift is negative. The patient is a 5/5 and equal in bilateral upper and bilateral lower extremities including his deltoids, triceps, biceps, wrist flexo rs, extensors, interossei, intrinsic yoga instructor, iliopsoas, hamstrings, quadriceps, plantar flexion, dorsi flexion, and EHL. Sensation is intact in bilateral upper and bilateral lower extremities. DIAGNOSTIC REVIEW: Patient underwent a head CT with contrast, which demonstrated a subacute right s ubdural hematoma in the right parietal region. There is no significant mass effect or underlying ce rebral atrophy. There is mild to moderate periventricular and deep hemispheric white matter changes that are consistent with small vessel ischemia. He also underwent a CT of the cervical spine which was negative for any acute fracture. Multi degenerative changes were noted. DISCUSSION AND DECISION-MAKING: The patient is a 76-year-old gentleman who has ongoing lumbar spina l degenerative disease as well as a recent fall with a right-sided subdural hematoma. At this point in time, we will repeat the head CT this morning just to make sure that there is no ch azucena given the patient's anticoagulation use. He is neurologically doing well. If his head CT is s table, he is okay to transfer to the floor per Medicine and his cardiac requirements. At this point in time, we are holding the Eliquis, Plavix, and aspirin. He has also been started on tranexamic a tricia. Need to weigh the risks and benefits of continuing the tranexamic acid given the patient's car diac disease and his stable neurological exam. The patient and his family did inquire about him getting his epidural steroid injection since we are currently holding his anticoagulation because of his subdural hematoma. Did discuss with the famil y that in order to proceed with an injection, would likely need him off the Plavix for approximately 7 days given the risk of epidural hematoma from an injection without blood thinner, and this may no t be advisable with his recent ablation. We will need clearance from Medicine/Cardiology as far as the timeframe that he is okay to be off his anticoagulation. Patient was seen both by Dr. Park and myself this morning. /[id number]/MODL
[2016-06-21 11:31] LABS: HEMATOCRIT 33.9 % (40.0-51.0); HEMOGLOBIN 12.1 g/dL (13.7-17.5)
[2016-06-21] MEDS: HYDROmorphONE/DILAUDID 2 MG TAB PO PRN ×3 (11:51→20:46)
[2016-06-21] MEDS: LIDOCAINE 5% 1 EA PATCH TD SCH (16:11)
[2016-06-21] MEDS: ROSUVASTATIN CALCIUM 40 MG TAB PO SCH (17:36)
[2016-06-21] MEDS: DULoxetine 30 MG CAP PO SCH (17:36)
[2016-06-21] MEDS: TAMSULOSIN HCL 0.4 MG CAP PO SCH (17:36)
[2016-06-21] MEDS: lamoTRIgine 100 MG TAB PO SCH (20:47)
[2016-06-21] MEDS: PATCH REMOVAL 1 EA PATCH TD SCH (20:48)
[2016-06-22] MEDS: HYDROmorphONE/DILAUDID 2 MG TAB PO PRN ×2 (00:48→05:04)
[2016-06-22] MEDS: LEVOTHYROXINE 88 MCG TAB PO SCH (05:04)
[2016-06-22] MEDS: ACETAMINOPHEN 325 MG TAB PO PRN ×2 (05:04→15:03)
[2016-06-22 05:31] LABS: HEMATOCRIT 31.8 % (40.0-51.0); HEMOGLOBIN 11.2 g/dL (13.7-17.5); MEAN CELL HEMOGLOBIN 32.8 pg (27.9-34.1); MEAN CELL HEMOGLOBIN CONCENTR. 35.2 g/dL (32.4-36.7); MEAN CELL VOLUME 93.3 fL (81.5-99.8); RED BLOOD CELL COUNT 3.41 10^6/uL (4.40-6.38); RED CELL DISTRIBUTION WIDTH 12.2 % (11.5-15.2)
[2016-06-22 05:53] LABS: ANION GAP 4 mEq/L (8-16); CALCIUM 8.1 mg/dL (8.5-10.4); CARBON DIOXIDE 25 mEq/l (22-31); CHLORIDE 105 mEq/L (97-110); CREATININE 0.7 mg/dL (0.7-1.3); GLOMERULAR FILTRATION RATE > 60; GLUCOSE 124 mg/dL (70-100); POTASSIUM 4.1 mEq/L (3.5-5.2); SODIUM 134 mEq/L (134-144)
[2016-06-22] MEDS ORDERED: oxyCODONE IR 5 MG TAB PO PRN (09:16)
[2016-06-22] MEDS: INSULIN REGULAR HUMAN 100 UNIT/ML SC SCH ×4 (09:19→21:25)
[2016-06-22] MEDS: CARVEDILOL 6.25 MG TAB PO SCH ×2 (09:21→18:33)
[2016-06-22] MEDS: SOTALOL HCL 80 MG TAB PO SCH ×2 (09:23→20:32)
[2016-06-22] MEDS: FAMOTIDINE 20 MG TAB PO SCH ×2 (09:23→20:32)
[2016-06-22] MEDS: DULoxetine 60 MG CAP PO SCH (09:23)
[2016-06-22] MEDS: LIDOCAINE 5% 1 EA PATCH TD SCH (09:27)
--- NOTE | 2016-06-22 10:51 | HOSPPROG ---
Hospitalist Progress Note Assessment/Plan: #Acute subdural hematoma: from fall while on Eliquis. CTH x 2 stable. Tranexxamic acid. Hold ASA, Plavix, ASA #Rectus femoris hematoma: H/H stable. Denies pain. #VT: ablated and AICD placement this past week by Dr. Kirby. Off Eliquis with SDH. Cont Sotalol #Radiculopathy: cannot undergo MRI with defibrillator. Interested in steroid injection to allow for rehab, but needs to be off Plavix for 7 days #Compensated systolic HF (EF35%): Coreg, Statin. Not on ACEI #Weakness: PT, likely needs SNF #Mechanical falls: may be due to recent increase in Gabapentin. Will hold for now and readd at lower dose when more stable #Diet: regular DVT ppx: SCDs #Disp: DC to [facility] when clinically stable # Subjective: altered yesterday afternoon. Repeat CTH negative Objective: Vital Signs Temp Pulse Resp BP Pulse Ox 37.0 C 70 18 105/60 100 06/22/16 08:00 06/22/16 09:23 06/22/16 08:00 06/22/16 09:23 06/22/16 08:00 Laboratory Results 06/22/16 04:34 06/22/16 04:34 06/21/16 06/22/16 06/23/16 05:59 05:59 05:59 Intake Total 1300 900 Output Total 700 1275 Balance 600 -375 - Physical Exam Constitutional: no apparent distress Eyes: PERRL Ears, Nose, Mouth, Throat: moist mucous membranes Cardiovascular: regular rate and rhythym Respiratory: no respiratory distress Gastrointestinal: normoactive bowel sounds Genitourinary: no bladder fullness Skin: warm Musculoskeletal: full muscle strength Neurologic: AAOx3, CN II-XII Intact Psychiatric: interacting appropriately ICD10 Worksheet Patient Problems: Problems Problem Status Onset Multiple falls Acute Subdural hematoma Acute Thigh contusion Acute ACS (acute coronary syndrome) Acute CHF (congestive heart failure) Acute
--- NOTE | 2016-06-22 11:41 | NEUSURGPN ---
Assessment/Plan: 76 y/o male with bilateral SDH, with a stable CT. - Okay to transfer to floor with Q4 hour neuro checks - Recommend cardiology consult to determine if triple therapy is indicated. Given his bleeding risk would prefer ASA/plavix or ASA/elquis alone from a neurosurgery perspective. He is okay to restart ASA/plavix or ASA/elquis as indicated. -PT/OT/YARDAGE ESTIMATOR -Low back pain and leg pain improved. -Head CT yesterday afternoon was stable. Given his waxing a waning symptoms, would monitor patient for 1 additional day. -DVT prophx: TEDs, SCDs -Discussed with Dr. Park -Please notify NS with any change in neuro/motor exam. Subjective: Denies any headache, nausea, vomiting Objective: NAD CN II-XII grossly intact. A&Ox3 MAEx4 5/5 and equal in BUE and BLE - Physician Discussed Patient with Dr.: Park Neurosurgery Physical Exam - Vitals, I&O, Labs I and O 06/21/16 06/22/16 06/23/16 05:59 05:59 05:59 Intake Total 1300 900 Output Total 700 1275 Balance 600 -375 Intake: Oral (ml) 800 900 IV Intake (ml) 500 Output: Urine (ml) 700 1275 Urinal 700 1275 Other: Output Comment Urinal UA sent Number of Voids Incontinence 1 Toilet 5 Urinal 1 Vital Signs Temp Pulse Resp BP Pulse Ox 37.0 C 70 18 105/60 100 06/22/16 08:00 06/22/16 09:23 06/22/16 08:00 06/22/16 09:23 06/22/16 08:00 Laboratory Results 06/22/16 04:34 06/22/16 04:34 ICD10 Worksheet Patient Problems: Problems Problem Status Onset Multiple falls Acute Subdural hematoma Acute Thigh contusion Acute ACS (acute coronary syndrome) Acute CHF (congestive heart failure) Acute
--- NOTE | 2016-06-22 11:50 | HOSPPROG ---
Hospitalist Progress Note Assessment/Plan: #Acute subdural hematoma: from fall while on Eliquis. CTH x 2 stable. Okay to start anticoagulation per NSGY, but they are concerned about triple-therapy #Rectus femoris hematoma: H/H stable. Denies pain. #VT: ablated and AICD placement this past week. Discussed with Dr. Kirby and is okay with ASA and Plavix only #Radiculopathy: cannot undergo MRI with defibrillator. Pain control with Lidoderm patch. Very impulsive with opioids. Restart very low-dose Gabapentin once clears #Compensated systolic HF (EF35%): Coreg, Statin. Not on ACEI #Weakness: PT, likely needs SNF #Mechanical falls: may be due to recent increase in Gabapentin. Will hold for now and readd at lower dose when more stable #Diet: regular DVT ppx: SCDs #Disp: monitor overnight with impulsiveness and risk for falls # Subjective: trying to get out of bed Objective: Vital Signs Temp Pulse Resp BP Pulse Ox 37.0 C 70 18 105/60 100 06/22/16 08:00 06/22/16 09:23 06/22/16 08:00 06/22/16 09:23 06/22/16 08:00 Laboratory Results 06/22/16 04:34 06/22/16 04:34 06/21/16 06/22/16 06/23/16 05:59 05:59 05:59 Intake Total 1300 900 Output Total 700 1275 Balance 600 -375 - Physical Exam Constitutional: no apparent distress Eyes: PERRL Ears, Nose, Mouth, Throat: moist mucous membranes Cardiovascular: regular rate and rhythym Respiratory: no respiratory distress, no rales or rhonchi Gastrointestinal: normoactive bowel sounds, soft, non-tender abdomen Skin: warm, other (psoriatic skin changes) Musculoskeletal: generalized weakness Neurologic: AAOx3, CN II-XII Intact Psychiatric: poor insight, other (impulsive, trying to get out of chair) ICD10 Worksheet Patient Problems: Problems Problem Status Onset Multiple falls Acute Subdural hematoma Acute Thigh contusion Acute ACS (acute coronary syndrome) Acute CHF (congestive heart failure) Acute
[2016-06-22] MEDS: clonazePAM 0.5 MG TAB PO PRN (15:04)
[2016-06-22] MEDS: ROSUVASTATIN CALCIUM 40 MG TAB PO SCH (18:33)
[2016-06-22] MEDS: DULoxetine 30 MG CAP PO SCH (18:34)
[2016-06-22] MEDS: KETOROLAC 15 MG/1 ML SDV IVP SCH ×2 (18:35→23:10)
[2016-06-22] MEDS: TAMSULOSIN HCL 0.4 MG CAP PO SCH (18:35)
[2016-06-22] MEDS: lamoTRIgine 100 MG TAB PO SCH (20:32)
[2016-06-22] MEDS ORDERED: MELATONIN 3 MG TAB PO SCH (21:00)
[2016-06-22] MEDS: PATCH REMOVAL 1 EA PATCH TD SCH (22:38)
[2016-06-23 04:12] VITALS: PULSE 71; O2SAT 94
[2016-06-23] MEDS: KETOROLAC 15 MG/1 ML SDV IVP SCH ×2 (05:23→12:32)
[2016-06-23] MEDS: LEVOTHYROXINE 88 MCG TAB PO SCH (05:23)
[2016-06-23 05:49] LABS: HEMOGLOBIN 12.5 g/dL (13.7-17.5); MEAN CELL HEMOGLOBIN 32.2 pg (27.9-34.1); MEAN CELL HEMOGLOBIN CONCENTR. 34.7 g/dL (32.4-36.7); MEAN CELL VOLUME 92.8 fL (81.5-99.8); RED BLOOD CELL COUNT 3.88 10^6/uL (4.40-6.38); RED CELL DISTRIBUTION WIDTH 12.1 % (11.5-15.2)
--- NOTE | 2016-06-23 07:39 | NEUSURGPN ---
Assessment/Plan: 76 y/o male with bilateral SDH, with a stable CT. - Neuro stable - He is okay to restart ASA/plavix or ASA/elquis as indicated. Given his bleeding risk would avoid triple therapy -PT/OT/UTILITY TENDER CARDING -DVT prophx: TEDs, SCDs -Possibly ok to dc to rehab later today if does well this morning -Discussed with Dr. Park -Please notify NS with any change in neuro/motor exam. Subjective: Is eager to leave the hospital. Does not understand why he is still here. Objective: Awake. Alert. PERRL. EOMI Following commands Strength full Sensation intact - Physician Discussed Patient with : Vivian Neurosurgery Physical Exam - Vitals, I&O, Labs I and O 06/22/16 06/23/16 06/24/16 05:59 05:59 05:59 Intake Total 900 1300 Output Total 1275 Balance -375 1300 Intake: Oral (ml) 900 1300 Output: Urine (ml) 1275 Urinal 1275 Other: Intake Quantity Yes Sufficient Number of Voids Incontinence 1 9 Toilet 5 3 Urinal 1 Vital Signs Temp Pulse Resp BP Pulse Ox 37 C 71 16 125/66 H 94 06/22/16 16:00 06/23/16 04:11 06/23/16 04:11 06/23/16 04:11 06/23/16 04:11 Laboratory Results 06/23/16 05:20 06/22/16 04:34 ICD10 Worksheet Patient Problems: Problems Problem Status Onset Multiple falls Acute Subdural hematoma Acute Thigh contusion Acute ACS (acute coronary syndrome) Acute CHF (congestive heart failure) Acute
[2016-06-23] MEDS: INSULIN REGULAR HUMAN 100 UNIT/ML SC SCH ×2 (07:56→12:28)
[2016-06-23 07:58] VITALS: BP 122/73; RESP 18; TEMP 97.6
[2016-06-23] MEDS: LIDOCAINE 5% 1 EA PATCH TD SCH (08:06)
[2016-06-23] MEDS: FAMOTIDINE 20 MG TAB PO SCH (08:06)
[2016-06-23] MEDS: SOTALOL HCL 80 MG TAB PO SCH (08:06)
[2016-06-23] MEDS: DULoxetine 60 MG CAP PO SCH (08:06)
[2016-06-23] MEDS: CARVEDILOL 6.25 MG TAB PO SCH (08:06)
[2016-06-23] MEDS ORDERED: ASPIRIN 325 MG TAB PO SCH (09:00)
[2016-06-23] MEDS ORDERED: CLOPIDOGREL BISULFATE 75 MG TAB PO SCH (09:00)
--- NOTE | 2016-06-23 10:07 | HOSPPROG ---
Hospitalist Progress Note Assessment/Plan: #SDHS: stable CTH x 2. Ok to restart Plavix, ASA #VT: recent ablation. Restart Plavix, ASA. Stopped Eliqius with increased risk of bleed #Radiculopathy: ideally, steroid injection, but cannot be off Plavix for month after ablation. Trial APAP, NSAIDs. Accupuncture. May be able to restart low- dose gabpentin in future #Deconditioning: rehab #Disp: DC today Subjective: no acute events Objective: Vital Signs Temp Pulse Resp BP Pulse Ox 36.4 C 71 18 122/73 H 94 06/23/16 07:56 06/23/16 04:11 06/23/16 07:56 06/23/16 07:56 06/23/16 04:11 Laboratory Results 06/23/16 05:20 06/22/16 04:34 06/22/16 06/23/16 06/24/16 05:59 05:59 05:59 Intake Total 900 1300 Output Total 1275 Balance -375 1300 - Physical Exam Constitutional: no apparent distress Eyes: PERRL Ears, Nose, Mouth, Throat: moist mucous membranes, hearing normal Cardiovascular: regular rate and rhythym, no murmur, rub, or gallop Respiratory: no respiratory distress, no rales or rhonchi Gastrointestinal: normoactive bowel sounds, soft, non-tender abdomen Genitourinary: no bladder fullness Skin: warm, other (psoriasis ) Musculoskeletal: full muscle strength Neurologic: AAOx3, CN II-XII Intact Psychiatric: other (tangential) ICD10 Worksheet Patient Problems: Problems Problem Status Onset Multiple falls Acute Subdural hematoma Acute Thigh contusion Acute ACS (acute coronary syndrome) Acute CHF (congestive heart failure) Acute
--- NOTE | 2016-06-23 10:52 | PDIAF ---
- Diagnosis Diagnosis: SHD Code Status: Do Not Resuscitate - Medication Management Discharge Medications: Medications to Continue on Transfer Ranitidine HCl [Ranitidine HCl 150 mg] 300 mg PO BID 04/18/11 [Last Taken 17:30] Aspirin [Aspirin 325 mg (*)] 325 mg PO DAILY 06/15/16 [Last Taken 06/20/16] Carvedilol [Coreg (*)] 6.25 mg PO BIDMEAL 06/15/16 [Last Taken 06/20/16 17:30] Clopidogrel Bisulfate [Plavix (*)] 75 mg PO DAILY@1730 06/15/16 [Last Taken 17:30] DULoxetine [Cymbalta 30 MG (*)] 30 mg PO DAILY18 06/15/16 [Last Taken 06/20/16 17:30] DULoxetine [Cymbalta 60 MG (*)] 60 mg PO DAILY 06/15/16 [Last Taken 06/20/16] Herbals/Supplements -Info Only 1 ea PO DAILY 06/15/16 [Last Taken Unknown] Levothyroxine [Synthroid 88 mcg (*)] 88 mcg PO DAILY06 06/15/16 [Last Taken ] [place]-3 Fatty Acids [Fish Oil 1000 mg (*)] 2,000 mg PO BID 06/15/16 [Last Taken 06/20/16 17:30] Rosuvastatin Calcium [Crestor 40mg (*)] 40 mg PO DAILY@17 06/15/16 [Last Taken 06/10/16] Sotalol HCl [Betapace 80 MG (*)] 80 mg PO BID 06/15/16 [Last Taken 06/20/16 17: 30] Tamsulosin HCl [Flomax 0.4 MG (*)] 0.4 mg PO DAILY18 06/15/16 [Last Taken 17:30] clonazePAM [Klonopin (*)] 0.5 - 1 mg PO BID PRN 06/15/16 [Last Taken 06/19/16] lamoTRIgine [LamICTAL 100 MG (*)] 200 mg PO HS 06/15/16 [Last Taken 06/19/16] Acetaminophen [Tylenol 325mg (*)] 325 - 650 mg PO Q4HRS PRN #0 tab 06/16/16 [ Last Taken 06/13/16] Ibuprofen [Advil] 400 mg PO Q8H PRN #30 tablet 06/23/16 [Last Taken Unknown] Lidocaine 5% [Lidoderm 5% Patch (*)] 1 ea TD DAILY patch 06/23/16 [Last Taken Unknown] Melatonin [Melatonin 3 MG (*)] 3 mg PO HS tab 06/23/16 [Last Taken Unknown] Discharge Medications: Refer to the Discharge Home Medication list for PRN reason. - Orders Services needed: Registered Nurse, Certified [employer], Physical Therapy, Occupational Therapy Diet Recommendation: no restrictions on diet Diet Texture: Regular Texture Diet - Labs/Radiology BMP Date: 06/25/16 HCT/HGB Date: 06/25/16 - Follow Up Care Current Providers and Referrals: Patient,NotPresent [Unknown] - As per Instructions
--- NOTE | 2016-06-23 11:26 | GDS ---
[f rep st] DISCHARGE SUMMARY DISCHARGE DIAGNOSES: 1. Subdural hematoma secondary to fall, on anticoagulation. 2. Ventricular tachycardia, status post recent ablation. 3. Radiculopathy. 4. Weakness. 5. Rectus femoris hematoma. 6. Compensated heart failure (EF 35%). 7. Mechanical falls. 8. Acute encephalopathy. CONSULTATIONS: Neurosurgery. HISTORY OF PRESENT ILLNESS: The patient is a 76-year-old male with a history of ventricular tachycardia who underwent ablation by Dr. Kirby 5 days prior to admission. He was discharged from the hospital on June 17. Due to ablation, he needed to be on Eliquis for 1 month in addition to his Plavix and aspirin. Unfortunately, at the time of discharge, the patient was aware that his ambulation was very unstable. He got home and had 4 falls on the day of admission and one in which he struck his head. He also developed new right hip pain. For the last month, he has been dealing with increasing bilateral sciatic pain. He has known spinal disease, and there were plans for an outpatient epidural steroid injection. However, after the ablation he was put on Eliquis and unable to proceed. Per family's report, patient has been on gabapentin and that has been up-titrated over the last few days, which may have contributed to his fall. HOSPITAL COURSE: 1. Subdural hematoma: due to fall while on Eliquis, Plavix, and aspirin. Neurosurgery consulted. Repeat CT remained stable. However, 2nd day, patient became more confused and had an additional CT done and this was also normal. Per Neurosurgery, it is okay to start dual antiplatelets, and we will proceed with aspirin and Plavix only, no Eliquis. 2. Lower extremity radiculopathy: He has had progressive lower extremity pain and weakness. The family was very interested in pursuing a steroid injection, however, needs to be off Plavix for 7 days. I spoke in detail with Dr. Kirby; must be on this for 1 month and then can pursue injection. At this time, gabapentin has been held because this likely attributed to his weakness and fall. It would be reasonable to start this at a very low dose when more clear. Trialed Toradol here. May use Tylenol and Advil intermittently. Would monitor kidney function and watch for gastric disturbances with NSAIDs.Also, suggested acupuncture. 3. Right hip pain: due rectus femoris muscular hematoma. H/H stable. Monitor now with restarting Plavix and aspirin. 4. Ventricular tachycardia: recent ablation with AICD by Dr. Kirby. Normally, they place the patient on Eliquis for a month after. However, given acute subdural hematoma and falls, this will be discontinued. We will continue Plavix and aspirin. 5. Coronary artery disease, status post CABG: We will continue beta cassy, statin, and aspirin. 6. Compensated chronic systolic heart failure, EF of 30%. Continue his home medication of beta cassy. Of note, he is not on an JANAE inhibitor. 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. 7. KAILEY: Continue CPAP. 8. Weakness: Patient will discharge to rehab. DISPOSITION: Patient is stable for discharge. MEDICATIONS: See medication reconciliation. FOLLOWUP: 1. Neurosurgery for steroid injection. 2. Dr. Kirby with Cardiology. Time spent on DC: >45 min coordinating rehab, counseling daughter on pain options. /[id number]/MODL MTDD
[2016-06-23] MEDS ORDERED: AQUAPHOR OINTMENT 3.5 OZ JAR TP PRN (15:30)
[2016-06-23] MEDS ORDERED: TRIAMCINOLONE 0.1% 15 GM CRTUBE TP PRN (15:30)
== END 2016-06-23 12:57 | DRG 86 ==
LOC: EDUNIT# → F2N 19:37 → OBSVTOIN 20:35
PROVIDERS: ADMIT Internal Medicine; ATTEND Internal Medicine
PROC: 30233R1 Transfusion of Nonautologous Platelets into Peripheral Vein, Percutaneous Approach (ICD-10-PCS; principal; 2016-06-20)
DX: S06.5X0A Traumatic subdural hemorrhage without loss of consciousness, initial encounter (principal); I50.22 Chronic systolic (congestive) heart failure; M54.10 Radiculopathy, site unspecified; S70.01XA Contusion of right hip, initial encounter; E78.5 Hyperlipidemia, unspecified; G47.33 Obstructive sleep apnea (adult) (pediatric); R29.6 Repeated falls; E03.9 Hypothyroidism, unspecified; Z87.891 Personal history of nicotine dependence; W18.39XA Other fall on same level, initial encounter; Z95.810 Presence of automatic (implantable) cardiac defibrillator; Z79.01 Long term (current) use of anticoagulants; Z95.1 Presence of aortocoronary bypass graft; M51.36 Other intervertebral disc degeneration, lumbar region
CPT/HCPCS: 92507-GN; 92523-GN; 96374; 97116-GP; 97163-GP; 97165-GO; 97530-GO; 97535-GO; G8978-GP-CJ; G8979-GP-CI; G8987-GO-CJ; G8988-GO-CI; G9168-GN-CK; G9169-GN-CJ; J1170; J1815; J1885; P9035

== ENCOUNTER 2016-06-23 11:19 | Inpatient (IN) | payer OTHER, MEDICARE ==
[2016-06-23] MEDS ORDERED: IBUPROFEN 200 MG TAB PO PRN (14:38)
[2016-06-23] MEDS ORDERED: BISACODYL 10 MG SUPP PR PRN (14:42)
[2016-06-23] MEDS ORDERED: ROSUVASTATIN CALCIUM 40 MG TAB PO SCH (17:00)
--- NOTE | 2016-06-23 17:04 | PDOREHIP ---
Admission [facility] - Admission - 3 Day Assessment Period Admission Date/Day 1: 06/23/16 Day 2: 06/24/16 Day 3: 06/25/16 - Active Diagnoses Comorbidities and Co-existing Conditions at Admission: 74140. DM (e.g. diabetic retinopathy, nephropathy, and neuropathy) - Skin Conditions Unhealed Pressure Ulcer (1 or more/Stage 1 or >)-Admission: 0. No
--- NOTE | 2016-06-23 17:16 | GHP ---
[f rep st] HISTORY AND PHYSICAL POST ADMISSION PHYSICIAN EVALUATION AND REHABILITATION TREATMENT PLAN DATE OF ADMISSION: 06/23/2016 DATE OF EVALUATION: June 23, 2016. TIME OF EVALUATION: 1430. REFERRING FACILITY: [facility]. REFERRING PHYSICIAN: Dr. Nuñez CONSULTING PHYSICIANS: Dr. Park, Neurosurgery IMPAIRMENT GROUP: [id number]. DATE OF ONSET: 06/20/2016. REHABILITATION DIAGNOSIS: Debility status post fall and subdural hematoma. ETIOLOGIC DIAGNOSIS: Traumatic, closed injury. HISTORY OF PRESENT ILLNESS: The patient suffered several falls in the days following a cardiac ablation for ventricular tachycardia. Due to the procedure , he was placed on apixaban for approximately 1 month. He was also taking clopidogrel and aspirin for coronary artery disease. He had also recently been started on gabapentin for chronic leg pain, which is presumably radiculopathy. In one of the falls, he hit his head. He received imaging in the emergency department. Head CT showed a subacute right subdural hematoma in the right parietal region, up to 10 mm in thickness with no mass effect. There were also [id number] periventricular and deep hemispheric white matter changes. Cervical spine was cleared with a CT. Hip x- ray showed mild degenerative change. A pelvic CT ruled out any fracture but showed an intramuscular hematoma of the right rectus femoris muscle. In the hospital he was followed by Neurosurgery. The hematoma remained stable on repeat head CT. Neurosurgery cleared him to resume dual anti-platelet therapy but not apixaban. His functional status is somewhat compromised by leg pain due to spinal radiculopathy. He had been evaluated for a steroid injection but this was postponed due to his need for anticoagulation and he would need to be off clopidogrel for 7 days. He was recommended to consider an injection after another month, at which point, the clopidogrel could be stopped, per metal cut off saw tender Dr. Kirby. He had been taking gabapentin prior to his fall and hospitalization and this was not continued out of concern for falls. He was participating in therapies and considered stable for discharge to inpatient rehabilitation. OTHER STUDIES AND LABS: During his hospitalization, he had mildly elevated glucoses but never to the point at which he would require insulin. Serum chemistry revealed normal renal function and electrolytes, and normal liver functions with the exception of a low albumin at 2.9. He had an elevated troponin at 0.343 and also positive creatine kinase. Per history, he has chronic elevated troponin and it improved on 06/21/2016. It was 0.074. On June 16, it had been 0.343. There was hyponatremia initially , but this resolved. CBC showed anemia, which was stable, and on the day of discharge hemoglobin was 12.5 and hematocrit was 36, improving from the several days prior. PT and PTT ruled out coagulopathy. A urinalysis was normal. 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 He had diastolic dysfunction. He had moderately dilated left atrium, trace mitral regurg, trace to mild tricuspid regurg, moderate aortic regurgitation, and a right ventricular systolic pressure of 25 mm mercury. Additionally, there was mild-to -moderate pulmonic valvular regurgitation. PRECAUTIONS: He is a fall risk. ACTIVE COMORBIDITIES: He has no active tier 1, tier 2, or tier 3 comorbidities. PAST MEDICAL HISTORY: 1. Coronary artery disease. 2. Ventricular tachycardia status post AICD placement and recent ablation. 3. Ischemic cardiomyopathy. 4. Obstructive sleep apnea. 5. Dyslipidemia. 6. Diabetes mellitus type 2. 7. Psoriasis. 8. Neuropathy. 9. Hepatitis C due to blood transfusion. 10. Dementia. 11. Benign prostatic hypertrophy. 12. Psoriasis. PAST SURGICAL HISTORY: He has had coronary artery bypass grafting at age 30 and he has had AICD placement and recent cardiac ablation. PRE-HOSPITAL MEDICATIONS: 1. Ranitidine 300 mg p.o. b.i.d. 2. Aspirin 325 mg p.o. daily. 3. Carvedilol 6.25 mg p.o. b.i.d. 4. Clopidogrel 75 mg p.o. daily. 5. Duloxetine 60 mg p.o. q.a.m. and 30 mg p.o. q. 1800. 6. Gabapentin 900 mg p.o. t.i.d. 7. Levothyroxine 88 mcg p.o. daily. 8. [place]-3 fatty acids 2000 mg p.o. b.i.d. 9. Rosuvastatin 40 mg p.o. daily. 10. Sotalol 80 mg p.o. b.i.d. 11. Tamsulosin 0.4 mg p.o. daily. 12. Clonazepam 0.5 to 1 mg p.o. b.i.d. p.r.n. 13. Lamotrigine 200 mg p.o. q.h.s. 14. Acetaminophen 325-650 mg p.o. q.4 hours p.r.n. 15. Apixaban 5 mg p.o. b.i.d. ADMISSION MEDICATIONS: 1. Acetaminophen 325-650 mg p.o. q.4 hours p.r.n. 2. Aspirin 325 mg p.o. daily. 3. Carvedilol 6.25 mg p.o. b.i.d. 4. Clonazepam 0.5 to 1 mg p.o. b.i.d. 5. Clopidogrel 75 mg p.o. daily. 6. Duloxetine 60 mg p.o. daily in the a.m. and 30 mg p.o. daily at 1800. 7. Ibuprofen 400 mg p.o. q.8 hours p.r.n. 8. Lamotrigine 200 mg p.o. at bedtime. 9. Levothyroxine 88 mcg p.o. daily. 10. Lidocaine patch daily. 11. Melatonin 3 mg p.o. at p.o. q. h.s. 12. Ranitidine 300 mg p.o. b.i.d. 13. [place]-3 acid ethyl esters 2000 mg p.o. b.i.d. 14. Rosuvastatin 40 mg p.o. daily at 1700. 15. Sotalol 80 mg p.o. b.i.d. 16. Tamsulosin 0.4 mg p.o. daily. ALLERGIES: Sulfonamide antibiotics. FAMILY HISTORY: Noncontributory. 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 He has recently moved to the [facility]. He has 2 local daughters who are involved in his care. He is a nonsmoker. REVIEW OF SYSTEMS: He reports pain down the front of his legs. It is worse when he stands fully erect and better when he somewhat flexed posture at the hips. He has been sleeping well. He does not have a headache. He does not have a cough. He denies dyspnea. He has no chest pain. He denies nausea, vomiting, constipation, or diarrhea, though no bowel movement is recorded since he was hospitalized on 06/20/2016. He denies joint pain or joint swelling. He reports that his psoriasis is not currently causing itch and that when it does, he has used coal tar and he has used another topical preparation prescribed by a retail operations manager. Other than that, a 10-point review of systems is negative. PHYSICAL EXAM: VITAL SIGNS: Blood pressure is 124/72, heart rate is 82, respiratory rate is 18, oxygen saturation is 93% on room air. Temperature is 36.5 degrees centigrade. His weight is 80.1 kg for a body mass index of 28.5. GENERAL: This is an overweight elderly man, appears his chronologic age, cooperative, and in no acute distress. HEENT: Extraocular movements are intact. Pupils are equal, round, and reactive to light. Mucous membranes are moist. Dentition is in good condition. NECK: Supple. HEART: Heart sounds are distant. There is a regular rate and rhythm. No murmurs, rubs, or gallops are auscultated. LUNGS: Clear to auscultation bilaterally. ABDOMEN: Soft, nontender, nondistended, with hypoactive bowel sounds and no hepatosplenomegaly. EXTREMITIES: There is no cyanosis or clubbing. There is trace edema. Radial pulses are 2+ bilaterally. Dorsalis pedis pulses are trace. NEUROLOGIC: He is alert and oriented x3. Cranial nerves 2-12 are grossly intact. There is no focal weakness. Sensation is intact to light touch. Deep tendon reflexes are globally hypoactive. Plantar reflex is upgoing on the left and downgoing on the right. Stance and gait were not tested. SKIN: He has scattered psoriatic plaques on his shins and elbows. CURRENT LEVEL OF FUNCTION: Per the preadmission screen, regarding diet, feeding , and swallowing, he was on regular texture. For grooming, he needed setup while seated. Bathing was done as a sponge bath with minimal assist and voice cues while seated. For dressing, he required set up in a seated position for upper body and lower body. For toileting, he required assistance. He was noted to be continent of bowel and bladder. Bed mobility was accomplished with standby assist to contact guard with voice cuing. Transfers were done with contact guard to minimal assistance. He used a 4-wheel walker. Seated balance was independent. Standing balance required contact guard. His endurance was poor. He was able to ambulate 30 feet with kskjskg-nf-kyjnsapt assistance with decreased balance and it is also noted that he ambulated 400 feet with contact guard. Regarding cognition, he was noted to have mild impairment in attention, executive function, judgment, safety, memory, problem solving, and reasoning. IMPRESSION: The patient is a 76-year-old man who suffered a series of falls culminating in a head injury 4 days after a cardiac ablation procedure. He was hospitalized and found to have bilateral subdural hematomas. Apixaban, which had been started after the cardiac ablation procedure, was discontinued. Neurosurgery approved continuing dual anti-platelet therapy with clopidogrel and aspirin for his history of coronary artery disease. He had an episode of confusion and a subsequent head CT was found to be unchanged. His functional status is further compromised by anterior leg pain which seems consistent with spinal stenosis. He was in the process of neurosurgical evaluation for possible steroid injection, but this was interrupted by his need for antiplatelet and anticoagulation following his cardiac ablation procedure. Gabapentin had been started and was discontinued due to concern that it may have contributed to his falls. He was otherwise stable and ready for discharge to inpatient rehabilitation. He will benefit from rehabilitation services including physical and occupational therapy to optimize his mobility and activities of daily living, and speech and language pathology regarding cognition. He needs nursing care for fall risk, skin integrity, bowel and bladder, medication administration and medication education. Needs the attention of a physician for risk for neurologic deterioration, risk for DVT, management of congestive heart failure, and pain management. His goal is to return to his assisted living with supportive services as needed. For a safe discharge, he will need to achieve independence with eating and grooming, dressing, bed mobility and transfers. Additionally, it is expected he will achieve modified independence for bathing and ambulation with the least restrictive device for household distances. It is likely he will continue to require assistance for meal preparation, household management, and shopping. He will receive therapy with Physical Therapy, Occupational Therapy, and Speech and Language Pathology for 60 minutes per day per discipline on 5-7 days per week. His expected duration of stay is 7-10 days. It is anticipated that upon discharge, he will continue to benefit from home health services, including speech and language pathology, occupational therapy, physical therapy, and brain injury support group. ASSESSMENT AND PLAN: 1. Debility status post multiple falls and subdural hematoma. Physical and occupational therapy to optimize activities of daily living and mobility. 2. Cognitive impairment, premorbid and possibly worsened. There was certainly an episode of delirium in the hospital. He will be assessed and treated per Speech and Language Pathology. 3. Leg pain. Possibly due to spinal stenosis. Continue acetaminophen and ibuprofen as ordered in the hospital. Consider restarting gabapentin. Lidocaine patch has also been ordered. Will assess whether it is useful. Other options are limited. Consider tramadol or a low-dose opiate, but caution regarding his history of delirium in the hospital. 4. Depression. Continue duloxetine, clonazepam, and lamotrigine. He appears to be in good spirits. He reports prior unsuccessful attempts to taper clonazepam. 5. History of ventricular tachycardia. He has had an ablation procedure. He has an AICD in place. He is also do not resuscitate and it is unclear whether he understands that the firing of the AICD is resuscitation. Consider further discussion. However, presumably he has had full conversation with his metal cut off saw tender regarding this topic. 6. Congestive heart failure. Continue carvedilol. He appears to be compensated at present and in fluid balance. Observe for any change in his cardiorespiratory status. 7. Dyslipidemia. Continue Rosuvastatin. 8. History of ventricular tachycardia. AICD is in place. Continue sotalol. 9. Psoriasis. This is mild and is not currently causing any discomfort. Will prescribe PRN triamcinolone.. 10. Constipation. Will prescribe a bowel program and observe for resolution. 11. Benign prostatic hypertrophy. Continue tamsulosin and observe for normal voiding. 12. Deep venous thrombosis risk. He is at high risk. However, he has also recently suffered a subdural hematoma. Observe for mobility. If he is soon ambulating 150 feet or more 3 times a day, this will not be an issue. If he has more prolonged immobility, this will be discussed further with Neurosurgery. It may be that the benefit exceeds the risk for preventive dose enoxaparin or heparin. /[id number]/MODL MTDD
[2016-06-23] MEDS: CLOPIDOGREL BISULFATE 75 MG TAB PO SCH (18:17)
[2016-06-23] MEDS: ROSUVASTATIN CALCIUM 20 MG TAB PO SCH (18:17)
[2016-06-23] MEDS: CARVEDILOL 6.25 MG TAB PO SCH (18:18)
[2016-06-23] MEDS: DULoxetine 30 MG CAP PO SCH (18:19)
[2016-06-23] MEDS: TAMSULOSIN HCL 0.4 MG CAP PO SCH (18:19)
[2016-06-23] MEDS ORDERED: RANITIDINE HCL 300 MG PO SCH (21:00)
[2016-06-23] MEDS: OMEGA-3 FATTY ACIDS 1,000 MG CAP PO SCH (21:59)
[2016-06-23] MEDS: FAMOTIDINE 20 MG TAB PO SCH (21:59)
[2016-06-23] MEDS: SOTALOL HCL 80 MG TAB PO SCH (21:59)
[2016-06-23] MEDS: lamoTRIgine 100 MG TAB PO SCH (21:59)
[2016-06-23] MEDS: MELATONIN 3 MG TAB PO SCH (21:59)
[2016-06-23] MEDS: clonazePAM 0.5 MG TAB PO PRN (22:00)
[2016-06-24] MEDS: LEVOTHYROXINE 88 MCG TAB PO SCH (04:53)
[2016-06-24] MEDS: POLYETHYLENE GLYCOL 3350 17 GM PKT PO SCH (08:39)
[2016-06-24] MEDS: ASPIRIN 325 MG TAB PO SCH (08:41)
[2016-06-24] MEDS: CARVEDILOL 6.25 MG TAB PO SCH ×2 (08:41→17:35)
[2016-06-24] MEDS: DULoxetine 60 MG CAP PO SCH (08:42)
[2016-06-24] MEDS: OMEGA-3 FATTY ACIDS 1,000 MG CAP PO SCH ×2 (08:42→22:05)
[2016-06-24] MEDS: FAMOTIDINE 20 MG TAB PO SCH ×2 (08:42→22:05)
[2016-06-24] MEDS: SOTALOL HCL 80 MG TAB PO SCH ×2 (08:42→22:00)
--- NOTE | 2016-06-24 08:45 | SOAPPROG ---
SOAP Progress Note Assessment/Plan: Assessment: * Debility status post multiple falls and subdural hematoma on 06/20/16. Physical and occupational therapy to optimize activities of daily living and mobility. * Cognitive impairment, premorbid and possibly worsened. There was certainly an episode of delirium in the hospital. He will be assessed and treated per Speech and Language Pathology. * Leg pain. Possibly due to spinal stenosis. Continue acetaminophen and ibuprofen as ordered in the hospital. He reports gabapentin up to 900 mg TID was ineffective prior to falls. Lidocaine patch has also been ordered. Will assess whether it is useful. Initiate tramadol at 25 mg Q 6 hr to establish tolerance, then titrate for symptom relief. Acupuncture and massage per his request. * Deep venous thrombosis risk. He is at high risk. However, he has also recently suffered a subdural hematoma. Observe for mobility. If he is soon ambulating 150 feet or more 3 times a day, this will not be an issue. If he has more prolonged immobility, this will be discussed further with Neurosurgery. It may be that the benefit exceeds the risk for preventive dose enoxaparin or heparin. Chronic/stable conditions: * Depression. Continue duloxetine, clonazepam, and lamotrigine. He appears to be in good spirits. He reports prior unsuccessful attempts to taper clonazepam. * History of ventricular tachycardia. He has had an ablation procedure. He has an AICD in place. He is also do not resuscitate and it is unclear whether he understands that the firing of the AICD is resuscitation. Consider further discussion. However, presumably he has had full conversation with his simulation technician regarding this topic. * Congestive heart failure. Continue carvedilol. He appears to be compensated at present and in fluid balance. Observe for any change in his cardiorespiratory status. * Dyslipidemia. Continue Rosuvastatin. * History of ventricular tachycardia. AICD is in place. Continue sotalol. * Psoriasis. This is mild and is not currently causing any discomfort. Will prescribe PRN triamcinolone.. * Constipation. Responding to bowel program. * Benign prostatic hypertrophy. Continue tamsulosin and observe for normal voiding. 06/24/16 16:18 Subjective: Slept well, no complaints. Asks the purpose of his rehab stay. Objective: Vital Signs Temp Pulse Resp BP Pulse Ox 36.5 C 73 16 124/66 H 93 06/24/16 06:09 06/24/16 08:42 06/24/16 06:09 06/24/16 08:42 06/24/16 06:09 06/23/16 06/24/16 06/25/16 05:59 05:59 05:59 Intake Total 386 Output Total 1350 Balance -964 Physical Exam - Physical Exam General Appearance: WD/WN, alert, no apparent distress Respiratory: normal breath sounds, No crackles, No rhonchi, No wheezing Cardiac/Chest: regular rate, rhythm, No edema Skin: normal color, warm/dry Neuro/Psych: no motor/sensory deficits, alert, normal mood/affect, other ( Ambulated with FWW normal pace, step-through pattern, intermittent twinges of pain) ICD10 Worksheet Patient Problems: Problems Problem Status Onset ACS (acute coronary syndrome) Acute CHF (congestive heart failure) Acute Multiple falls Acute Subdural hematoma Acute Thigh contusion Acute
[2016-06-24] MEDS ORDERED: Herbals/Supplements -Info Only PO SCH (09:00)
[2016-06-24] MEDS ORDERED: traMADol 50 MG TAB PO PRN (16:16)
[2016-06-24] MEDS: LIDOCAINE 5% 1 EA PATCH TD SCH (16:21)
[2016-06-24] MEDS: CHOLECALCIFEROL VIT D3 2,000 UNITS TAB/CAP PO SCH (17:32)
[2016-06-24] MEDS: ASCORBIC ACID 500 MG TAB PO SCH (17:32)
[2016-06-24] MEDS: CYANO/VITAMIN B12 1000 MCG TAB PO SCH (17:32)
[2016-06-24] MEDS: CLOPIDOGREL BISULFATE 75 MG TAB PO SCH (17:33)
[2016-06-24] MEDS: ROSUVASTATIN CALCIUM 20 MG TAB PO SCH (17:33)
[2016-06-24] MEDS: DULoxetine 30 MG CAP PO SCH (17:35)
[2016-06-24] MEDS: TAMSULOSIN HCL 0.4 MG CAP PO SCH (17:35)
[2016-06-24] MEDS: MELATONIN 3 MG TAB PO SCH (22:06)
[2016-06-24] MEDS: lamoTRIgine 100 MG TAB PO SCH (22:06)
[2016-06-24] MEDS: ACETAMINOPHEN 325 MG TAB PO PRN (22:10)
[2016-06-25] MEDS: LEVOTHYROXINE 88 MCG TAB PO SCH (06:35)
[2016-06-25] MEDS: CYANO/VITAMIN B12 1000 MCG TAB PO SCH (09:44)
[2016-06-25] MEDS: CARVEDILOL 6.25 MG TAB PO SCH ×2 (09:45→18:27)
[2016-06-25] MEDS: CHOLECALCIFEROL VIT D3 2,000 UNITS TAB/CAP PO SCH (09:45)
[2016-06-25] MEDS: SENNOSIDES 1 TAB PO PRN (09:45)
[2016-06-25] MEDS: POLYETHYLENE GLYCOL 3350 17 GM PKT PO SCH (09:46)
[2016-06-25] MEDS: ASPIRIN 325 MG TAB PO SCH (09:46)
[2016-06-25] MEDS: OMEGA-3 FATTY ACIDS 1,000 MG CAP PO SCH ×2 (09:46→21:24)
[2016-06-25] MEDS: SOTALOL HCL 80 MG TAB PO SCH ×2 (09:46→21:25)
[2016-06-25] MEDS: DULoxetine 60 MG CAP PO SCH (09:47)
[2016-06-25] MEDS: FAMOTIDINE 20 MG TAB PO SCH ×2 (09:47→21:26)
[2016-06-25] MEDS: ASCORBIC ACID 500 MG TAB PO SCH (09:47)
[2016-06-25] MEDS: LIDOCAINE 5% 1 EA PATCH TD SCH (09:47)
[2016-06-25] MEDS: ACETAMINOPHEN 325 MG TAB PO PRN ×2 (09:58→21:25)
[2016-06-25] MEDS: traMADol 50 MG TAB PO SCH ×3 (12:03→22:54)
--- NOTE | 2016-06-25 14:07 | SOAPPROG ---
SOAP Progress Note Assessment/Plan: Assessment: * Debility status post multiple falls and subdural hematoma on 06/20/16. Initial FIM 81. CGA bed mobility. CGA - min A transsfers and ambulation, >150' . Min A LB dressing; SBA for UB. Inattentive to detail in shower. Does not recall safety precautions, and has impulsivity. Continue physical and occupational therapy to optimize activities of daily living and mobility. With inattention, he's safer without a wheelchair in room. Continue chair & bed alarms. * Cognitive impairment. Deficit to problem solving, exec fn, new learning, attn. Continue QUALITY PROCESS AUDITOR. * Leg pain. Possibly due to spinal stenosis; bruising may contribute. Continue acetaminophen. He reports gabapentin up to 900 mg TID was ineffective prior to falls. Lidocaine patch has also been ordered, on R thigh, not helping , will d/c 06/25/16. D/C ibuprofen as contraindicated with CHF and ASA. Initiated tramadol at 25 mg Q 6 hr on 06/24/16 to establish tolerance, then titrate for symptom relief. Acupuncture and massage per his request. * Deep venous thrombosis risk. He is at high risk. However, he has also recently suffered a subdural hematoma. Likely has adequate mobility to be at reduced DVT risk. Chronic/stable conditions: * Depression. Continue duloxetine, clonazepam, and lamotrigine. He appears to be in good spirits. He reports prior unsuccessful attempts to taper clonazepam. * History of ventricular tachycardia. He has had an ablation procedure. He has an AICD in place. Continue sotalol. * Congestive heart failure. Continue carvedilol. He appears to be compensated at present and in fluid balance. Observe for any change in his cardiorespiratory status. * Dyslipidemia. Continue Rosuvastatin. * Psoriasis. This is mild and is not currently causing any discomfort. Will prescribe PRN triamcinolone.. * Constipation. Responding to bowel program. * Benign prostatic hypertrophy. Continue tamsulosin and observe for normal voiding. Attended staffing, 15 min. D/W case mgmt, nursing, PT, OT, QUALITY PROCESS AUDITOR, test administrator. Goal to recover function at HALFWAY level. Will need help with medication management, and will need ot be safe independent in room. Discharge date set for 07/07/16. 06/25/16 13:55 Subjective: Wants to show the bruising on his R thigh; thinks it might contribute to his leg pain. Says pain is better if he walks more slowly. Reports several awakenings during the night, not due to pain. No cough/dyspnea, f/c. Objective: Vital Signs Temp Pulse Resp BP Pulse Ox 36.6 C 93 16 100/60 92 06/25/16 08:00 06/25/16 09:45 06/25/16 08:00 06/25/16 09:45 06/25/16 08:00 06/24/16 06/25/16 06/26/16 05:59 05:59 05:59 Intake Total 386 850 240 Output Total 1350 550 Balance -964 300 240 - Time Spent With Patient Time Spent With Patient: Greater than 35 minutes floor time today, including more than 50% of time incoordination of care during staffing, and counseling patient and daughter. Physical Exam - Physical Exam General Appearance: WD/WN, alert, no apparent distress Respiratory: normal breath sounds, No crackles, No rhonchi, No wheezing Cardiac/Chest: regular rate, rhythm, No edema Skin: normal color, warm/dry Neuro/Psych: alert, normal mood/affect, oriented x 3 ICD10 Worksheet Patient Problems: Problems Problem Status Onset ACS (acute coronary syndrome) Acute CHF (congestive heart failure) Acute Multiple falls Acute Subdural hematoma Acute Thigh contusion Acute
[2016-06-25] MEDS: TAMSULOSIN HCL 0.4 MG CAP PO SCH (18:27)
[2016-06-25] MEDS: DULoxetine 30 MG CAP PO SCH (18:27)
[2016-06-25] MEDS: lamoTRIgine 100 MG TAB PO SCH (21:27)
[2016-06-25] MEDS: MELATONIN 3 MG TAB PO SCH (21:28)
[2016-06-25] MEDS: ROSUVASTATIN CALCIUM 20 MG TAB PO SCH (21:28)
[2016-06-25] MEDS: clonazePAM 0.5 MG TAB PO PRN (21:32)
[2016-06-25] MEDS: CLOPIDOGREL BISULFATE 75 MG TAB PO SCH (21:37)
[2016-06-26] MEDS: traMADol 50 MG TAB PO SCH ×4 (05:47→22:17)
[2016-06-26] MEDS: LEVOTHYROXINE 88 MCG TAB PO SCH (05:48)
[2016-06-26] MEDS: ASPIRIN 325 MG TAB PO SCH (08:58)
[2016-06-26] MEDS: ASCORBIC ACID 500 MG TAB PO SCH (08:58)
[2016-06-26] MEDS: CHOLECALCIFEROL VIT D3 2,000 UNITS TAB/CAP PO SCH (08:58)
[2016-06-26] MEDS: CARVEDILOL 6.25 MG TAB PO SCH ×2 (08:58→18:37)
[2016-06-26] MEDS: DULoxetine 60 MG CAP PO SCH (08:59)
[2016-06-26] MEDS: FAMOTIDINE 20 MG TAB PO SCH ×2 (08:59→20:08)
[2016-06-26] MEDS: LIDOCAINE 5% 1 EA PATCH TD SCH (08:59)
[2016-06-26] MEDS: OMEGA-3 FATTY ACIDS 1,000 MG CAP PO SCH ×2 (09:00→20:06)
[2016-06-26] MEDS: SOTALOL HCL 80 MG TAB PO SCH ×2 (09:00→20:07)
[2016-06-26] MEDS: POLYETHYLENE GLYCOL 3350 17 GM PKT PO SCH (09:00)
[2016-06-26] MEDS: CYANO/VITAMIN B12 1000 MCG TAB PO SCH (10:14)
--- NOTE | 2016-06-26 11:21 | SOAPPROG ---
SOAP Progress Note Assessment/Plan: Assessment: 76 yo M with SDH following falls and head trauma. He also had a recent cardiac ablation procedure, and has congestive heart failure, compensated. He also has a spinal stenosis versus radiculopathy, and exhibits inattention and impulsiveness. 06/26/2016- Doing well overall, endorses some leg pain consistent with musculoskeletal injury after fall, no pain with weight-bearing. Also denying symptoms of orthopnea. Plan is unchanged, Continue to monitor leg pain and plan to examine again later today. Patient and all medical issues are new to this provider today. A total of 15 minutes was spent on the floor in the care of the patient, the majority was spent in the counseling and coronation care regarding neural recovery. * Debility status post multiple falls and subdural hematoma on 06/20/16. Initial FIM 81. CGA bed mobility. CGA - min A transsfers and ambulation, >150' . Min A LB dressing; SBA for UB. Inattentive to detail in shower. Does not recall safety precautions, and has impulsivity. Continue physical and occupational therapy to optimize activities of daily living and mobility. With inattention, he's safer without a wheelchair in room. Continue chair & bed alarms. * Cognitive impairment. Deficit to problem solving, exec fn, new learning, attn. 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 * Leg pain. Possibly due to spinal stenosis; bruising may contribute. Continue acetaminophen. He reports gabapentin up to 900 mg TID was ineffective prior to falls. Lidocaine patch has also been ordered, on R thigh, not helping , will d/c 06/25/16. D/C ibuprofen as contraindicated with CHF and ASA. Initiated tramadol at 25 mg Q 6 hr on 06/24/16 to establish tolerance, then titrate for symptom relief. Acupuncture and massage per his request. * Deep venous thrombosis risk. He is at high risk. However, he has also recently suffered a subdural hematoma. Likely has adequate mobility to be at reduced DVT risk. Chronic/stable conditions: * Depression. Continue duloxetine, clonazepam, and lamotrigine. He appears to be in good spirits. He reports prior unsuccessful attempts to taper clonazepam. * History of ventricular tachycardia. He has had an ablation procedure. He has an AICD in place. Continue sotalol. * Congestive heart failure. Continue carvedilol. He appears to be compensated at present and in fluid balance. Observe for any change in his cardiorespiratory status. * Dyslipidemia. Continue Rosuvastatin. * Psoriasis. This is mild and is not currently causing any discomfort. Will prescribe PRN triamcinolone.. * Constipation. Responding to bowel program. * Benign prostatic hypertrophy. Continue tamsulosin and observe for normal voiding. Attended staffing, 15 min. D/W case mgmt, nursing, PT, OT, COATING TECHNICIAN, professor of art history. Goal to recover function at LONGTERM level. Will need help with medication management, and will need ot be safe independent in room. Discharge date set for 07/07/16. 06/26/16 11:17 06/26/16 11:20 Subjective: CC: leg pain No acute events overnight. Patient endorses leg pain and tenderness after fall. It is in the mid shaft of the right thigh, no pain with weight-bearing. He denies any orthopnea, or paroxysmal nocturnal dyspnea. Participating in therapies, sleeping well. Objective: Vital Signs Temp Pulse Resp BP Pulse Ox 36.6 C 72 16 100/60 93 06/26/16 05:55 06/26/16 09:01 06/26/16 05:55 06/26/16 09:01 06/26/16 05:55 06/25/16 06/26/16 06/27/16 05:59 05:59 05:59 Intake Total 850 1020 Output Total 550 1650 Balance 300 -630 Physical Exam - Physical Exam General Appearance: alert, no apparent distress Respiratory: normal breath sounds, No respiratory distress, No accessory muscle use Cardiac/Chest: normal peripheral pulses, regular rate, rhythm, No edema Skin: normal color, warm/dry Extremities: other ( Tender on the right aspect of the thigh in the musculature. ) Neuro/Psych: alert, normal mood/affect ICD10 Worksheet Patient Problems: Problems Problem Status Onset ACS (acute coronary syndrome) Acute CHF (congestive heart failure) Acute Multiple falls Acute Subdural hematoma Acute Thigh contusion Acute
[2016-06-26] MEDS: TAMSULOSIN HCL 0.4 MG CAP PO SCH (18:37)
[2016-06-26] MEDS: DULoxetine 30 MG CAP PO SCH (18:37)
[2016-06-26] MEDS: CLOPIDOGREL BISULFATE 75 MG TAB PO SCH (18:37)
[2016-06-26] MEDS: ROSUVASTATIN CALCIUM 20 MG TAB PO SCH (20:07)
[2016-06-26] MEDS: lamoTRIgine 100 MG TAB PO SCH (20:07)
[2016-06-26] MEDS: MELATONIN 3 MG TAB PO SCH (20:08)
[2016-06-26] MEDS: PATCH REMOVAL 1 EA PATCH TD SCH (20:09)
[2016-06-26] MEDS: clonazePAM 0.5 MG TAB PO PRN ×2 (20:11→22:17)
[2016-06-27] MEDS: ACETAMINOPHEN 325 MG TAB PO PRN ×2 (08:00→18:03)
[2016-06-27] MEDS: LEVOTHYROXINE 88 MCG TAB PO SCH (09:01)
[2016-06-27] MEDS: LIDOCAINE 5% 1 EA PATCH TD SCH (09:01)
[2016-06-27] MEDS: ASCORBIC ACID 500 MG TAB PO SCH (09:02)
[2016-06-27] MEDS: CARVEDILOL 6.25 MG TAB PO SCH ×2 (09:02→18:04)
[2016-06-27] MEDS: SOTALOL HCL 80 MG TAB PO SCH ×2 (09:02→21:34)
[2016-06-27] MEDS: ASPIRIN 325 MG TAB PO SCH (09:02)
[2016-06-27] MEDS: POLYETHYLENE GLYCOL 3350 17 GM PKT PO SCH (09:03)
[2016-06-27] MEDS: FAMOTIDINE 20 MG TAB PO SCH ×2 (09:03→21:34)
[2016-06-27] MEDS: CHOLECALCIFEROL VIT D3 2,000 UNITS TAB/CAP PO SCH (09:03)
[2016-06-27] MEDS: SENNOSIDES 1 TAB PO PRN (09:03)
[2016-06-27] MEDS: OMEGA-3 FATTY ACIDS 1,000 MG CAP PO SCH ×2 (09:03→21:34)
[2016-06-27] MEDS: DULoxetine 60 MG CAP PO SCH (09:03)
[2016-06-27] MEDS: CYANO/VITAMIN B12 1000 MCG TAB PO SCH (09:03)
--- NOTE | 2016-06-27 11:43 | SOAPPROG ---
SOAP Progress Note Assessment/Plan: Assessment: 76 yo M with SDH following falls and head trauma. He also had a recent cardiac ablation procedure, and has congestive heart failure, compensated. He also has a spinal stenosis versus radiculopathy, and exhibits inattention and impulsiveness. 06/27/2016- Discussed overall rehab plan with patient today, he is amenable to continuing and will discuss with therapist today and tomorrow. Leg pain on the right consistent with trauma from his fall. I reviewed prior notes and saw that he had imaging that was negative for any fractures of the hip and leg. Plan to continue pain control, including changing gabapentin dosage. Patient will bring his coal tar from home and also bring his home CPAP machine. He is anxious to get home so that he can get his spinal injection. * Debility status post multiple falls and subdural hematoma on 06/20/16. Initial FIM 81. CGA bed mobility. CGA - min A transsfers and ambulation, >150' . Min A LB dressing; SBA for UB. Inattentive to detail in shower. Does not recall safety precautions, and has impulsivity. Continue physical and occupational therapy to optimize activities of daily living and mobility. With inattention, he's safer without a wheelchair in room. Continue chair & bed alarms. * Cognitive impairment. Deficit to problem solving, exec fn, new learning, attn. 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 * Leg pain. Possibly due to spinal stenosis; bruising may contribute. Continue acetaminophen. He reports gabapentin up to 900 mg TID was ineffective prior to falls. Lidocaine patch has also been ordered, on R thigh, not helping , will d/c 06/25/16. D/C ibuprofen as contraindicated with CHF and ASA. Initiated tramadol at 25 mg Q 6 hr on 06/24/16 to establish tolerance, then titrate for symptom relief. Acupuncture and massage per his request. Discussed gabapentin, he is open to trying it at a low dose, 300 mg BID. * Deep venous thrombosis risk. He is at high risk. However, he has also recently suffered a subdural hematoma. Likely has adequate mobility to be at reduced DVT risk. Chronic/stable conditions: * Depression. Continue duloxetine, clonazepam, and lamotrigine. He appears to be in good spirits. He reports prior unsuccessful attempts to taper clonazepam. * History of ventricular tachycardia. He has had an ablation procedure. He has an AICD in place. Continue sotalol. * Congestive heart failure. Continue carvedilol. He appears to be compensated at present and in fluid balance. Observe for any change in his cardiorespiratory status. * Dyslipidemia. Continue Rosuvastatin. * Psoriasis. This is mild and is not currently causing any discomfort. Will prescribe PRN triamcinolone.. * Constipation. Responding to bowel program. * Benign prostatic hypertrophy. Continue tamsulosin and observe for normal voiding. Goal to recover function at SKILLED NURSING level. Will need help with medication management, and will need ot be safe independent in room. Discharge date set for 07/07/16. 06/26/16 11:17 06/26/16 11:20 06/27/16 11:39 Subjective: CC: leg pain, right and bilateral No acute events overnight. Patient continues to endorse right-sided leg pain after his fall. He reports significant bruising, pain that is consistent with bruise type pain. He also has bilateral neuropathic type pain, can be severe when it happens, but happens intermittently. He notes that gabapentin might have been helpful in the past, but it was recently discontinued. He would be open to trying a low dose. Primarily, he wants to get home to be able to get his spinal injections. He feels that he may not be making optimum progress because of the pain in his right leg and in his back, he does feel that he is making progress in getting benefit from inpatient rehabilitation. Denies any new fever, chills, shortness of breath, chest pain, new neurological changes such as new numbness tingling or weakness. Objective: Vital Signs Temp Pulse Resp BP Pulse Ox 36.7 C 68 92 H 122/60 H 0 L 06/27/16 08:00 06/27/16 09:02 06/27/16 08:00 06/27/16 09:02 06/27/16 08:00 06/26/16 06/27/16 06/28/16 05:59 05:59 05:59 Intake Total 1020 1700 Output Total 1650 1050 Balance -630 650 Physical Exam - Physical Exam General Appearance: alert, mild distress, thin Respiratory: normal breath sounds, No respiratory distress, No accessory muscle use Cardiac/Chest: normal peripheral pulses, regular rate, rhythm, No edema Skin: warm/dry, other (diffuse rashes, some excoriated) Extremities: other ( Right leg with substantial bruising and tenderness all along the thigh and upper buttock. Tenderness to palpation diffusely.) Neuro/Psych: alert, normal mood/affect, other (Logical) ICD10 Worksheet Patient Problems: Problems Problem Status Onset ACS (acute coronary syndrome) Acute CHF (congestive heart failure) Acute Multiple falls Acute Subdural hematoma Acute Thigh contusion Acute
[2016-06-27] MEDS: traMADol 50 MG TAB PO SCH ×4 (13:08→22:02)
--- NOTE | 2016-06-27 16:13 | SOAPPROG ---
SOAP Progress Note Assessment/Plan: Assessment: Acupuncture consult requested by Dr. Koenig. Mr. Lowery's daughter, Ruth, was present during the interview. He is having 10/10 bilateral sciatic pain. [facility] following a fall which caused a subdural hematoma and severe bruising on his R leg. He is bandaged on his medial anterior tibialis. When I asked Mr. Lowery to lay down, he had shooting, sharp pain in his R hip. He also said he has frequent dizzy spells with standing but felt this was separate from why he was in rehab and did not "feel it necessary to share the information". I did explain anything that keeps him from standing comfortable could affect his ability to be independent and should be shared with his care providers. (I did relay this to a nurse). Mr. Lowery was recently moved to a new living situation with both independent and assisted living. His goal is to get back there and live independently. His daughter Ruth explained they would like him to have a steroid injection but need to balance reducing blood thinners for heart medication with pain management in order for that to happen. This process could take up to a month. They are hoping acupuncture can reduce his pain in the interim. I have explained to Mr. 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 Some of Mr. Lowery's goals are to return to independent living, and go on daily walks with his dog, Zander. Treatment: Auricular: [place]/Rapid Acupuncture (BFA): 5 points bilateral shown to affect the FOOD ADVISER and reduce pain. Cingular Gyrate [place] 2 [place] Zero [place] Right Side: Ling Gu - extra point for low back pain Da Joleen - extra point for low back pain SI 3 - Master point of the Hans Dennis, reduces spinal cord pain and inflammation, balance the BL meridian, decrease tension in paraspinal muscles SI 2 - reduces spinal cord pain and inflammation, balance the BL meridian, decrease tension in paraspinal muscles, decrease flexion/extension pain KI 3 - balance the BL meridian, reduce pain in flexion and extension, decrease LBP KI 4 - balance the BL meridian, reduce pain in flexion and extension, decrease LBP KI 10 - [place] of KI meridian, improve water metabolism SP 3, 5 - balance the ST and SP meridians, reduce pain in rotation SP 9 x 2 leanne - decrease LBP, balance ST and SP meridians, improve blood flow LR 3 - decrease stress and tension, relax the scapula, balance LR, GB, and HT meridians, move the blood, improve circulation LR 8 - improve blood flow and circulation, balance LR and GB meridians Left Side: DOMINICK 1-6 balance the BL meridian reduce pain in flexion and extension, decrease LBP ST [address] 41 relax anterior hip, balance ST meridian GB 34 x 2 leanne - empirical point to relax the tendons, decrease sciatic pain GB 40 - open the hip, reduce pain in side-bending, decrease sciatic pain GB 41 - Master point of Cindy Jeannie ([place]), decrease pain and inflammation in LB BL 65 - Bee point of BL meridian, decrease acute low back pain, decrease pain in flexion and extension DU 26 - acute LBP Patient rested comfortable for fifty minutes. Plan: A course of treatment, six to ten treatments, two times per week, minimum, is recommended to reduce inflammation and pain. 06/27/16 16:03 06/27/16 16:14 07/02/16 18:36 Objective: Vital Signs Temp Pulse Resp BP Pulse Ox 36.7 C 68 92 H 122/60 H 0 L 06/27/16 08:00 06/27/16 09:02 06/27/16 08:00 06/27/16 09:02 06/27/16 08:00 06/26/16 06/27/16 06/28/16 05:59 05:59 05:59 Intake Total 1020 1700 Output Total 1650 1050 Balance -630 650 ICD10 Worksheet Patient Problems: Problems Problem Status Onset ACS (acute coronary syndrome) Acute CHF (congestive heart failure) Acute Multiple falls Acute Subdural hematoma Acute Thigh contusion Acute
[2016-06-27] MEDS: CLOPIDOGREL BISULFATE 75 MG TAB PO SCH (18:03)
[2016-06-27] MEDS: DULoxetine 30 MG CAP PO SCH (18:04)
[2016-06-27] MEDS: TAMSULOSIN HCL 0.4 MG CAP PO SCH (18:04)
[2016-06-27] MEDS: lamoTRIgine 100 MG TAB PO SCH (21:34)
[2016-06-27] MEDS: GABAPENTIN 300 MG CAP PO SCH (21:34)
[2016-06-27] MEDS: MELATONIN 3 MG TAB PO SCH (21:34)
[2016-06-27] MEDS: ROSUVASTATIN CALCIUM 20 MG TAB PO SCH (21:34)
[2016-06-27] MEDS: PATCH REMOVAL 1 EA PATCH TD SCH (21:40)
[2016-06-27] MEDS: clonazePAM 0.5 MG TAB PO PRN (22:03)
[2016-06-28] MEDS: traMADol 50 MG TAB PO SCH ×4 (05:15→22:39)
[2016-06-28] MEDS: LEVOTHYROXINE 88 MCG TAB PO SCH (05:15)
[2016-06-28] MEDS: ASPIRIN 325 MG TAB PO SCH (09:12)
[2016-06-28] MEDS: ASCORBIC ACID 500 MG TAB PO SCH (09:12)
[2016-06-28] MEDS: SOTALOL HCL 80 MG TAB PO SCH ×2 (09:12→22:38)
[2016-06-28] MEDS: OMEGA-3 FATTY ACIDS 1,000 MG CAP PO SCH ×2 (09:13→22:39)
[2016-06-28] MEDS: CYANO/VITAMIN B12 1000 MCG TAB PO SCH (09:13)
[2016-06-28] MEDS: GABAPENTIN 300 MG CAP PO SCH ×2 (09:13→22:38)
[2016-06-28] MEDS: DULoxetine 60 MG CAP PO SCH (09:13)
[2016-06-28] MEDS: CHOLECALCIFEROL VIT D3 2,000 UNITS TAB/CAP PO SCH (09:13)
[2016-06-28] MEDS: CARVEDILOL 6.25 MG TAB PO SCH ×2 (09:14→17:50)
[2016-06-28] MEDS: FAMOTIDINE 20 MG TAB PO SCH ×3 (09:14→22:39)
[2016-06-28] MEDS: POLYETHYLENE GLYCOL 3350 17 GM PKT PO SCH (09:17)
[2016-06-28] MEDS: LIDOCAINE 5% 1 EA PATCH TD SCH (09:17)
--- NOTE | 2016-06-28 14:47 | SOAPPROG ---
SOAP Progress Note Assessment/Plan: Assessment: * Debility status post multiple falls and subdural hematoma on 06/20/16. Initial FIM 81. CGA bed mobility. CGA - min A transsfers and ambulation, >150' . Min A LB dressing; SBA for UB. Inattentive to detail in shower. Does not recall safety precautions, and has impulsivity. Continue physical and occupational therapy to optimize activities of daily living and mobility. With inattention, he's safer without a wheelchair in room. Continue chair & bed alarms. * Cognitive impairment. Deficit to problem solving, exec fn, new learning, attn. 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 * Leg pain. Possibly due to spinal stenosis; bruising may contribute. Continue acetaminophen. He reports gabapentin up to 900 mg TID was ineffective prior to falls. Lidocaine patch has also been ordered, on R thigh, not helping , will d/c 06/25/16. D/C ibuprofen as contraindicated with CHF and ASA. Initiated tramadol at 25 mg Q 6 hr on 06/24/16 to establish tolerance, then titrate for symptom relief. Acupuncture and massage per his request; acupuncture seems to be helpful. Also restarted gabapentin. * Deep venous thrombosis risk. He is at high risk. However, he has also recently suffered a subdural hematoma. Likely has adequate mobility to be at reduced DVT risk. Chronic/stable conditions: * Depression. Continue duloxetine, clonazepam, and lamotrigine. He appears to be in good spirits. He reports prior unsuccessful attempts to taper clonazepam. * History of ventricular tachycardia. He has had an ablation procedure. He has an AICD in place. Continue sotalol. * Congestive heart failure. Continue carvedilol. He appears to be compensated at present and in fluid balance. Observe for any change in his cardiorespiratory status. * Dyslipidemia. Continue Rosuvastatin. * Psoriasis. This is mild and is not currently causing any discomfort. Will prescribe PRN triamcinolone.. * Constipation. Responding to bowel program. * Benign prostatic hypertrophy. Continue tamsulosin and observe for normal voiding. Goal to recover function at ASSISTED level. Will need help with medication management, and will need ot be safe independent in room. Discharge date set for 07/07/16. 06/28/16 14:47 Subjective: No complaints. Slept well. Thinks he had pain relief from acupuncture. No cough/dyspnea, f/c. 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 Objective: Vital Signs Temp Pulse Resp BP Pulse Ox 36.4 C 83 18 136/74 H 95 06/28/16 07:49 06/28/16 07:49 06/28/16 07:49 06/28/16 07:49 06/28/16 07:49 06/27/16 06/28/16 06/29/16 05:59 05:59 05:59 Intake Total 1700 1990 180 Output Total 1050 1100 200 Balance 650 890 -20 Physical Exam - Physical Exam General Appearance: WD/WN, alert, no apparent distress Respiratory: normal breath sounds, No crackles, No rhonchi, No wheezing Cardiac/Chest: regular rate, rhythm, No edema, No JVD Skin: normal color, warm/dry Neuro/Psych: no motor/sensory deficits, alert, normal mood/affect, oriented x 3 , cognition abnormalities (Needs help to find his room) ICD10 Worksheet Patient Problems: Problems Problem Status Onset ACS (acute coronary syndrome) Acute CHF (congestive heart failure) Acute Multiple falls Acute Subdural hematoma Acute Thigh contusion Acute
[2016-06-28] MEDS: CLOPIDOGREL BISULFATE 75 MG TAB PO SCH (17:48)
[2016-06-28] MEDS: TAMSULOSIN HCL 0.4 MG CAP PO SCH (17:49)
[2016-06-28] MEDS: SENNOSIDES 1 TAB PO PRN (17:49)
[2016-06-28] MEDS: DULoxetine 30 MG CAP PO SCH (17:56)
[2016-06-28] MEDS: ROSUVASTATIN CALCIUM 20 MG TAB PO SCH (22:38)
[2016-06-28] MEDS: lamoTRIgine 100 MG TAB PO SCH (22:38)
[2016-06-28] MEDS: MELATONIN 3 MG TAB PO SCH (22:38)
[2016-06-28] MEDS: clonazePAM 0.5 MG TAB PO PRN (22:39)
[2016-06-28] MEDS: PATCH REMOVAL 1 EA PATCH TD SCH (22:39)
[2016-06-29] MEDS: LEVOTHYROXINE 88 MCG TAB PO SCH (05:09)
[2016-06-29] MEDS: traMADol 50 MG TAB PO SCH ×4 (05:09→22:16)
[2016-06-29] MEDS: ACETAMINOPHEN 325 MG TAB PO PRN (08:49)
[2016-06-29] MEDS: ASPIRIN 325 MG TAB PO SCH (08:50)
[2016-06-29] MEDS: ASCORBIC ACID 500 MG TAB PO SCH (08:50)
[2016-06-29] MEDS: CHOLECALCIFEROL VIT D3 2,000 UNITS TAB/CAP PO SCH (08:51)
[2016-06-29] MEDS: CYANO/VITAMIN B12 1000 MCG TAB PO SCH (08:51)
[2016-06-29] MEDS: CARVEDILOL 6.25 MG TAB PO SCH ×2 (08:51→17:45)
[2016-06-29] MEDS: DULoxetine 60 MG CAP PO SCH (08:51)
[2016-06-29] MEDS: OMEGA-3 FATTY ACIDS 1,000 MG CAP PO SCH ×2 (08:52→22:14)
[2016-06-29] MEDS: LIDOCAINE 5% 1 EA PATCH TD SCH (08:52)
[2016-06-29] MEDS: SOTALOL HCL 80 MG TAB PO SCH ×2 (08:53→22:14)
[2016-06-29] MEDS: POLYETHYLENE GLYCOL 3350 17 GM PKT PO SCH (08:53)
[2016-06-29] MEDS: GABAPENTIN 300 MG CAP PO SCH ×2 (08:54→22:14)
[2016-06-29] MEDS: SENNOSIDES 1 TAB PO PRN (08:54)
--- NOTE | 2016-06-29 08:54 | SOAPPROG ---
SOAP Progress Note Assessment/Plan: Assessment: 76 yo M with SDH following falls and head trauma. He also had a recent cardiac ablation procedure, and has congestive heart failure, compensated. He also has a spinal stenosis versus radiculopathy, and exhibits inattention and impulsiveness. 06/29/2016- Patient is doing very well, participating in therapies. Has combination of leg pain from trauma as well as radicular pain from his spine. Still very interested in getting a spinal injection as soon as possible. Okay with the current dose of gabapentin, willing to increase if it is not contraindicated. * Debility status post multiple falls and subdural hematoma on 06/20/16. Initial FIM 81. CGA bed mobility. CGA - min A transsfers and ambulation, >150' . Min A LB dressing; SBA for UB. Inattentive to detail in shower. Does not recall safety precautions, and has impulsivity. Continue physical and occupational therapy to optimize activities of daily living and mobility. With inattention, he's safer without a wheelchair in room. Continue chair & bed alarms. * Cognitive impairment. Deficit to problem solving, exec fn, new learning, attn. 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 * Leg pain. Possibly due to spinal stenosis; bruising may contribute. Continue acetaminophen. He reports gabapentin up to 900 mg TID was ineffective prior to falls. Lidocaine patch has also been ordered, on R thigh, not helping , will d/c 06/25/16. D/C ibuprofen as contraindicated with CHF and ASA. Initiated tramadol at 25 mg Q 6 hr on 06/24/16 to establish tolerance, then titrate for symptom relief. Acupuncture and massage per his request; acupuncture seems to be helpful. Also restarted gabapentin. * Deep venous thrombosis risk. He is at high risk. However, he has also recently suffered a subdural hematoma. Likely has adequate mobility to be at reduced DVT risk. Chronic/stable conditions: * Depression. Continue duloxetine, clonazepam, and lamotrigine. He appears to be in good spirits. He reports prior unsuccessful attempts to taper clonazepam. * History of ventricular tachycardia. He has had an ablation procedure. He has an AICD in place. Continue sotalol. * Congestive heart failure. Continue carvedilol. He appears to be compensated at present and in fluid balance. Observe for any change in his cardiorespiratory status. * Dyslipidemia. Continue Rosuvastatin. * Psoriasis. This is mild and is not currently causing any discomfort. Will prescribe PRN triamcinolone.. * Constipation. Responding to bowel program. * Benign prostatic hypertrophy. Continue tamsulosin and observe for normal voiding. Goal to recover function at HALFWAY level. Will need help with medication management, and will need ot be safe independent in room. Discharge date set for 07/07/16. 06/26/16 11:17 06/26/16 11:20 06/27/16 11:39 06/29/16 08:50 Subjective: CC: leg pain No acute events overnight. Continues to describe bilateral leg pain, occasional shooting and electric pain, some tenderness more consistent with history of trauma and bruising. Otherwise he is sleeping well, participating well in therapies, and he exclaimed today that this is the best day of his life. He's very happy with the results of the gabapentin so far, somewhat poor historian and gets a little bit confused, but definitely much better symptom reporting since the gabapentin started. No new numbness, tingling, weakness, no chest pain or shortness of breath. Objective: Vital Signs Temp Pulse Resp BP Pulse Ox 36.4 C 80 18 110/60 96 06/29/16 05:29 06/29/16 08:48 06/29/16 05:29 06/29/16 08:48 06/29/16 05:29 06/28/16 06/29/16 06/30/16 05:59 05:59 05:59 Intake Total 1989 1180 Output Total 1100 1500 Balance 890 -320 Physical Exam - Physical Exam General Appearance: alert, no apparent distress EENT: No scleral icterus (R), No scleral icterus (L) Respiratory: No respiratory distress, No accessory muscle use Cardiac/Chest: normal peripheral pulses, regular rate, rhythm, No edema Skin: normal color, warm/dry Neuro/Psych: alert, normal mood/affect, other (Some confusion, not remembering some of the details discussed on Tuesday.) ICD10 Worksheet Patient Problems: Problems Problem Status Onset ACS (acute coronary syndrome) Acute CHF (congestive heart failure) Acute Multiple falls Acute Subdural hematoma Acute Thigh contusion Acute
--- NOTE | 2016-06-29 09:31 | SOAPPROG ---
SOAP Progress Note Assessment/Plan: Assessment: Plan: Objective: Vital Signs Temp Pulse Resp BP Pulse Ox 36.4 C 80 18 100/60 96 06/29/16 05:29 06/29/16 08:53 06/29/16 05:29 06/29/16 08:53 06/29/16 05:29 06/28/16 06/29/16 06/30/16 05:59 05:59 05:59 Intake Total 1989 1180 Output Total 1100 1500 Balance 890 -320 - Time Spent With Patient Time Spent With Patient: Gabriel is alert and in good spirits. Reports that he slept better after acupuncture last visit, but the pain has increased last night and didn't sleep as well. Reports pain mostly in legs when standing. While lying on back, received 60 min of acupuncture. Needle retention approx 50 min. Carolina points bilateral Bilat LU8-5 a naveen Bilat Lingku, Flor Joleen, yaotongxue GB41, 42 LR3 UB65 ACUPRESSURE AND 2 NEEDLES AT A NAVEEN LOCATIONS ALONG LATERAL BORDER OF RIGHT SCAPULA ACUPRESSSURE ALONG LATERAL BORDER OF LEFT SCAP Gabriel fell asleep during treatment ICD10 Worksheet Patient Problems: Problems Problem Status Onset ACS (acute coronary syndrome) Acute CHF (congestive heart failure) Acute Multiple falls Acute Subdural hematoma Acute Thigh contusion Acute
[2016-06-29] MEDS: TAMSULOSIN HCL 0.4 MG CAP PO SCH (17:47)
[2016-06-29] MEDS: CLOPIDOGREL BISULFATE 75 MG TAB PO SCH (17:47)
[2016-06-29] MEDS: DULoxetine 30 MG CAP PO SCH (17:47)
[2016-06-29] MEDS: MELATONIN 3 MG TAB PO SCH (22:14)
[2016-06-29] MEDS: FAMOTIDINE 20 MG TAB PO SCH (22:14)
[2016-06-29] MEDS: ROSUVASTATIN CALCIUM 20 MG TAB PO SCH (22:14)
[2016-06-29] MEDS: lamoTRIgine 100 MG TAB PO SCH (22:14)
[2016-06-29] MEDS: PATCH REMOVAL 1 EA PATCH TD SCH (22:15)
[2016-06-29] MEDS: TRIAMCINOLONE 0.1% 15GM OINT TP PRN (22:15)
[2016-06-29] MEDS: clonazePAM 0.5 MG TAB PO PRN (22:16)
[2016-06-30] MEDS: LEVOTHYROXINE 88 MCG TAB PO SCH (05:50)
[2016-06-30] MEDS: traMADol 50 MG TAB PO SCH ×4 (05:51→21:55)
[2016-06-30] MEDS: POLYETHYLENE GLYCOL 3350 17 GM PKT PO SCH (08:48)
[2016-06-30] MEDS: ASCORBIC ACID 500 MG TAB PO SCH (08:53)
[2016-06-30] MEDS: CARVEDILOL 6.25 MG TAB PO SCH ×2 (08:55→17:31)
[2016-06-30] MEDS: CYANO/VITAMIN B12 1000 MCG TAB PO SCH (08:56)
[2016-06-30] MEDS: CHOLECALCIFEROL VIT D3 2,000 UNITS TAB/CAP PO SCH (08:56)
[2016-06-30] MEDS: DULoxetine 60 MG CAP PO SCH (08:56)
[2016-06-30] MEDS: ASPIRIN 325 MG TAB PO SCH (08:56)
[2016-06-30] MEDS: OMEGA-3 FATTY ACIDS 1,000 MG CAP PO SCH ×2 (08:56→21:00)
[2016-06-30] MEDS: GABAPENTIN 300 MG CAP PO SCH ×2 (08:56→20:59)
[2016-06-30] MEDS: FAMOTIDINE 20 MG TAB PO SCH ×2 (08:56→20:59)
[2016-06-30] MEDS: SOTALOL HCL 80 MG TAB PO SCH ×2 (08:57→20:59)
[2016-06-30] MEDS: LIDOCAINE 5% 1 EA PATCH TD SCH (10:39)
--- NOTE | 2016-06-30 13:34 | SOAPPROG ---
SOAP Progress Note Assessment/Plan: Assessment: * Debility status post multiple falls and subdural hematoma on 06/20/16. Initial FIM 81, gainto 85 as of 06/30/16. I bed mobility. Ambulation, >500'; has had LOB with back/leg pain spasms but none X 2 days. LOB and fall risk with impulsivity and distraction when focused on accomplishing tasks. Continue physical and occupational therapy to optimize activities of daily living and mobility. Continue chair & bed alarms. * Cognitive impairment. Deficit to problem solving, exec fn, new learning, attn. 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 * Leg pain. Possibly due to spinal stenosis; bruising may contribute. Continue acetaminophen. Lidocaine patch has also been ordered, on R thigh, not helping, will d/c 06/25/16. D/C ibuprofen as contraindicated with CHF and ASA. Initiated tramadol at 25 mg Q 6 hr on 06/24/16; also on gabapentin 300 mg BID. Acupuncture and massage per his request; acupuncture seems to be helpful and pain is improved. * Deep venous thrombosis risk. He is at high risk. However, he has also recently suffered a subdural hematoma. Likely has adequate mobility to be at reduced DVT risk. Chronic/stable conditions: * Depression. Continue duloxetine, clonazepam, and lamotrigine. He appears to be in good spirits. He reports prior unsuccessful attempts to taper clonazepam. * History of ventricular tachycardia. He has had an ablation procedure. He has an AICD in place. Continue sotalol. * Congestive heart failure. Continue carvedilol. He appears to be compensated at present and in fluid balance. Observe for any change in his cardiorespiratory status. * Dyslipidemia. Continue Rosuvastatin. * Psoriasis. This is mild and is not currently causing any discomfort. Will prescribe PRN triamcinolone.. * Constipation. Responding to bowel program. * Benign prostatic hypertrophy. Continue tamsulosin and observe for normal voiding. Attended staffing, 15 min. D/W case mgmt, nursing, PT, OT, MARBLE SUPERVISOR. Goal to recover function at FATUMA level. Will need help with medication management, and will need to be safe independent in room. Discharge date set for 07/07/16. Considerearlier discharge if his safety is improved significantly. 06/30/16 13:29 Subjective: Wants to leave. O/W w/out complaints. Reports that after meeting with MARBLE SUPERVISOR yesterday he is paying much more attention to safety. Objective: Vital Signs Temp Pulse Resp BP Pulse Ox 36.5 C 72 16 109/59 L 93 06/30/16 06:06 06/30/16 08:57 06/30/16 06:06 06/30/16 08:57 06/30/16 06:06 06/29/16 06/30/16 07/01/16 05:59 05:59 05:59 Intake Total 1180 1286 354 Output Total 1500 1000 Balance -320 286 354 - Time Spent With Patient Time Spent With Patient: Greater than 35 minutes floor time today, including more than 50% of time in coordination of care during staffing meeting, and counseling patient. Physical Exam - Physical Exam General Appearance: WD/WN, alert, no apparent distress Respiratory: No respiratory distress, No accessory muscle use Skin: normal color, warm/dry Neuro/Psych: no motor/sensory deficits, alert, normal mood/affect, oriented x 3 , other (Ambulating with normal speed, step-through pattern with FWW accompanied by PT.) ICD10 Worksheet Patient Problems: Problems Problem Status Onset ACS (acute coronary syndrome) Acute CHF (congestive heart failure) Acute Multiple falls Acute Subdural hematoma Acute Thigh contusion Acute
[2016-06-30] MEDS: TAMSULOSIN HCL 0.4 MG CAP PO SCH (17:31)
[2016-06-30] MEDS: DULoxetine 30 MG CAP PO SCH (17:31)
[2016-06-30] MEDS: CLOPIDOGREL BISULFATE 75 MG TAB PO SCH (17:31)
[2016-06-30] MEDS: ACETAMINOPHEN 325 MG TAB PO PRN (20:59)
[2016-06-30] MEDS: lamoTRIgine 100 MG TAB PO SCH (21:00)
[2016-06-30] MEDS: ROSUVASTATIN CALCIUM 20 MG TAB PO SCH (21:01)
[2016-06-30] MEDS: PATCH REMOVAL 1 EA PATCH TD SCH (21:02)
[2016-06-30] MEDS: MELATONIN 3 MG TAB PO SCH (21:02)
[2016-06-30] MEDS: clonazePAM 0.5 MG TAB PO PRN (21:55)
[2016-07-01] MEDS: LEVOTHYROXINE 88 MCG TAB PO SCH (05:48)
[2016-07-01] MEDS: traMADol 50 MG TAB PO SCH ×4 (05:48→22:12)
[2016-07-01] MEDS: CARVEDILOL 6.25 MG TAB PO SCH ×2 (09:09→17:43)
[2016-07-01] MEDS: CHOLECALCIFEROL VIT D3 2,000 UNITS TAB/CAP PO SCH (09:10)
[2016-07-01] MEDS: ASPIRIN 325 MG TAB PO SCH (09:10)
[2016-07-01] MEDS: CYANO/VITAMIN B12 1000 MCG TAB PO SCH (09:10)
[2016-07-01] MEDS: ASCORBIC ACID 500 MG TAB PO SCH (09:10)
[2016-07-01] MEDS: SOTALOL HCL 80 MG TAB PO SCH ×2 (09:11→21:03)
[2016-07-01] MEDS: GABAPENTIN 300 MG CAP PO SCH ×2 (09:11→21:03)
[2016-07-01] MEDS: FAMOTIDINE 20 MG TAB PO SCH ×2 (09:11→21:04)
[2016-07-01] MEDS: OMEGA-3 FATTY ACIDS 1,000 MG CAP PO SCH ×2 (09:11→21:03)
[2016-07-01] MEDS: DULoxetine 60 MG CAP PO SCH (09:11)
--- NOTE | 2016-07-01 09:34 | SOAPPROG ---
SOAP Progress Note Assessment/Plan: Assessment: 76 yo M with SDH following falls and head trauma. He also had a recent cardiac ablation procedure, and has congestive heart failure, compensated. He also has a spinal stenosis versus radiculopathy, and exhibits inattention and impulsiveness. 07/01/2016 - Patient still desires to go home, but has limited insight into his level of safety, though he appears to be improving in this regard. He does have help available intermittently at home, social workers trying to shore up his support system. Otherwise medically stable, continue plan below. Assessment: * Debility status post multiple falls and subdural hematoma on 06/20/16. Initial FIM 81, gainto 85 as of 06/30/16. I bed mobility. Ambulation, >500'; has had LOB with back/leg pain spasms but none X 2 days. LOB and fall risk with impulsivity and distraction when focused on accomplishing tasks. Continue physical and occupational therapy to optimize activities of daily living and mobility. Continue chair & bed alarms. * Cognitive impairment. Deficit to problem solving, exec fn, new learning, attn. 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 * Leg pain. Possibly due to spinal stenosis; bruising may contribute. Continue acetaminophen. Lidocaine patch has also been ordered, on R thigh, not helping, will d/c 06/25/16. D/C ibuprofen as contraindicated with CHF and ASA. Initiated tramadol at 25 mg Q 6 hr on 06/24/16; also on gabapentin 300 mg BID. Acupuncture and massage per his request; acupuncture seems to be helpful and pain is improved. * Deep venous thrombosis risk. He is at high risk. However, he has also recently suffered a subdural hematoma. Likely has adequate mobility to be at reduced DVT risk. Chronic/stable conditions: * Depression. Continue duloxetine, clonazepam, and lamotrigine. He appears to be in good spirits. He reports prior unsuccessful attempts to taper clonazepam. * History of ventricular tachycardia. He has had an ablation procedure. He has an AICD in place. Continue sotalol. * Congestive heart failure. Continue carvedilol. He appears to be compensated at present and in fluid balance. Observe for any change in his cardiorespiratory status. * Dyslipidemia. Continue Rosuvastatin. * Psoriasis. This is mild and is not currently causing any discomfort. Will prescribe PRN triamcinolone.. * Constipation. Responding to bowel program. * Benign prostatic hypertrophy. Continue tamsulosin and observe for normal voiding. Goal to recover function at FPC level. Will need help with medication management, and will need to be safe independent in room. Discharge date set for 07/07/16. Consider earlier discharge if his safety is improved significantly. 06/26/16 11:17 06/26/16 11:20 06/27/16 11:39 06/29/16 08:50 07/01/16 09:30 Subjective: CC: wants to go home No acute events overnight. Patient endorses that he would like to go home as soon as it is possible. Per discussion with nephrology social worker, he is still unsafe and has relatively poor insight. Apparently he was having difficulty taking his medications in a safe manner prior to admission to the hospital. Goal is for discharge next Tuesday, after shoring up his support at the assisted living facility. Patient endorses that his leg pain is greatly improved with the new walker, he has no other concerns today. Denies any fevers, chills, chest pain, shortness of breath, new numbness, tingling, or weakness. Objective: Vital Signs Temp Pulse Resp BP Pulse Ox 36.6 C 71 16 95/58 L 93 07/01/16 06:02 07/01/16 09:11 07/01/16 06:02 07/01/16 09:11 07/01/16 06:02 06/30/16 07/01/16 07/02/16 05:59 05:59 05:59 Intake Total 1286 1276 Output Total 1000 Balance 286 1276 Physical Exam - Physical Exam General Appearance: WD/WN, alert, no apparent distress Respiratory: normal breath sounds, No respiratory distress, No accessory muscle use Cardiac/Chest: normal peripheral pulses, regular rate, rhythm, No edema Skin: normal color, warm/dry, No cyanosis Neuro/Psych: alert, normal mood/affect ICD10 Worksheet Patient Problems: Problems Problem Status Onset ACS (acute coronary syndrome) Acute CHF (congestive heart failure) Acute Multiple falls Acute Subdural hematoma Acute Thigh contusion Acute
[2016-07-01] MEDS: POLYETHYLENE GLYCOL 3350 17 GM PKT PO SCH (12:19)
[2016-07-01] MEDS: LIDOCAINE 5% 1 EA PATCH TD SCH (13:10)
[2016-07-01] MEDS: TAMSULOSIN HCL 0.4 MG CAP PO SCH (17:43)
[2016-07-01] MEDS: DULoxetine 30 MG CAP PO SCH (17:43)
[2016-07-01] MEDS: CLOPIDOGREL BISULFATE 75 MG TAB PO SCH (17:43)
[2016-07-01] MEDS: lamoTRIgine 100 MG TAB PO SCH (21:03)
[2016-07-01] MEDS: ROSUVASTATIN CALCIUM 20 MG TAB PO SCH (21:03)
[2016-07-01] MEDS: MELATONIN 3 MG TAB PO SCH (21:04)
[2016-07-01] MEDS: PATCH REMOVAL 1 EA PATCH TD SCH (21:44)
[2016-07-01] MEDS: clonazePAM 0.5 MG TAB PO PRN (22:13)
[2016-07-02] MEDS: traMADol 50 MG TAB PO SCH ×4 (06:34→21:59)
[2016-07-02] MEDS: LEVOTHYROXINE 88 MCG TAB PO SCH (06:34)
[2016-07-02] MEDS: CHOLECALCIFEROL VIT D3 2,000 UNITS TAB/CAP PO SCH (08:03)
[2016-07-02] MEDS: FAMOTIDINE 20 MG TAB PO SCH ×2 (08:03→19:57)
[2016-07-02] MEDS: OMEGA-3 FATTY ACIDS 1,000 MG CAP PO SCH ×2 (08:03→19:50)
[2016-07-02] MEDS: ACETAMINOPHEN 325 MG TAB PO PRN (08:03)
[2016-07-02] MEDS: ASCORBIC ACID 500 MG TAB PO SCH (08:03)
[2016-07-02] MEDS: POLYETHYLENE GLYCOL 3350 17 GM PKT PO SCH (08:03)
[2016-07-02] MEDS: GABAPENTIN 300 MG CAP PO SCH ×2 (08:03→19:57)
[2016-07-02] MEDS: ASPIRIN 325 MG TAB PO SCH (08:03)
[2016-07-02] MEDS: DULoxetine 60 MG CAP PO SCH (08:03)
[2016-07-02] MEDS: CARVEDILOL 6.25 MG TAB PO SCH ×2 (08:04→17:42)
[2016-07-02] MEDS: CYANO/VITAMIN B12 1000 MCG TAB PO SCH (08:04)
[2016-07-02] MEDS: SOTALOL HCL 80 MG TAB PO SCH ×2 (08:04→19:55)
[2016-07-02] MEDS: LIDOCAINE 5% 1 EA PATCH TD SCH (08:05)
--- NOTE | 2016-07-02 14:45 | SOAPPROG ---
SOAP Progress Note Assessment/Plan: Assessment: * Debility status post multiple falls and subdural hematoma on 06/20/16. Initial FIM 81, gain to 85 as of 06/30/16. I bed mobility. Ambulation, >500'; has had LOB with back/leg pain spasms. LOB and fall risk with impulsivity and distraction when focused on accomplishing tasks. Continue physical and occupational therapy to optimize activities of daily living and mobility. Continue chair & bed alarms. * Cognitive impairment. Deficit to problem solving, exec fn, new learning, attn. 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 * Leg pain. Possibly due to spinal stenosis; bruising may contribute. Continue acetaminophen. Lidocaine patch has also been ordered, on R thigh, not helping, will d/c 06/25/16. D/C ibuprofen as contraindicated with CHF and ASA. Initiated tramadol at 25 mg Q 6 hr on 06/24/16; also on gabapentin 300 mg BID. Acupuncture and massage per his request; acupuncture seems to be helpful and pain is improved. * Deep venous thrombosis risk. Subdural hematoma is relative contraindication to anticoagulation. Likely has adequate mobility to be at reduced DVT risk. Chronic/stable conditions: * Depression. Continue duloxetine, clonazepam, and lamotrigine. He appears to be in good spirits. He reports prior unsuccessful attempts to taper clonazepam. * History of ventricular tachycardia. He has had an ablation procedure. He has an AICD in place. Continue sotalol. * Congestive heart failure. Continue carvedilol. He appears to be compensated at present and in fluid balance. Observe for any change in his cardiorespiratory status. * Dyslipidemia. Continue Rosuvastatin. * Psoriasis. This is mild and is not currently causing any discomfort. Will prescribe PRN triamcinolone.. * Constipation. Responding to bowel program. * Benign prostatic hypertrophy. Continue tamsulosin and observe for normal voiding. Goal to recover function at SENIOR CARE level. Will need help with medication management, and will need to be safe independent in room. Discharge date set for 07/07/16. Family conference 07/06/16. 07/02/16 14:42 Subjective: Wants to go home today. Long discussion with patient and ENGINE RESEARCH ENGINEER. Eventually agrees to stay. Objective: Vital Signs Temp Pulse Resp BP Pulse Ox 36.5 C 78 16 124/71 H 95 07/02/16 06:55 07/02/16 08:04 07/02/16 06:55 07/02/16 08:04 07/02/16 06:55 07/01/16 07/02/16 07/03/16 05:59 05:59 05:59 Intake Total 1276 1060 360 Output Total 100 500 Balance 1276 960 -140 Physical Exam - Physical Exam General Appearance: WD/WN, alert, no apparent distress Respiratory: No respiratory distress, No accessory muscle use Skin: normal color, warm/dry Neuro/Psych: no motor/sensory deficits, alert, oriented x 3, other ( Perseverative, lacking insight) ICD10 Worksheet Patient Problems: Problems Problem Status Onset ACS (acute coronary syndrome) Acute CHF (congestive heart failure) Acute Multiple falls Acute Subdural hematoma Acute Thigh contusion Acute
[2016-07-02] MEDS: CLOPIDOGREL BISULFATE 75 MG TAB PO SCH (17:41)
[2016-07-02] MEDS: TAMSULOSIN HCL 0.4 MG CAP PO SCH (17:41)
[2016-07-02] MEDS: DULoxetine 30 MG CAP PO SCH (17:42)
--- NOTE | 2016-07-02 18:47 | SOAPPROG ---
SOAP Progress Note Assessment/Plan: Assessment: Acupuncture consult requested by Dr. Koenig. Mr. Lowery's daughter, Ruth, was present during the interview. He is having 10/10 bilateral sciatic pain. Mr. Lowery is at [facility] following a fall which caused a subdural hematoma and severe bruising on his R leg. He is bandaged on his medial anterior tibialis. When I asked Mr. Lowery to lay down, he had shooting, sharp pain in his R hip. He also said he has frequent dizzy spells with standing but felt this was separate from why he was in rehab and did not "feel it necessary to share the information". I did explain anything that keeps him from standing comfortable could affect his ability to be independent and should be shared with his care providers. (I did relay this to a nurse). Mr. Lowery was recently moved to a new living situation with both independent and assisted living. His goal is to get back there and live independently. His daughter Ruth explained they would like him to have a steroid injection but need to balance reducing blood thinners for heart medication with pain management in order for that to happen. This process could take up to a month. They are hoping acupuncture can reduce his pain in the interim. I have explained to Mr. Lowery that acupuncture responds well to stenosis, long term care social worker; however it may require a full course of treatment (six to ten treatments) to notice considerable reduction in pain. Some of Mr. Lowery's goals are to return to independent living, and go on daily walks with his dog, Zander. Treatment: Auricular: [place]/Rapid Acupuncture (BFA): 5 points bilateral shown to affect the CARPENTER REPAIR and reduce pain. Cingular Gyrate [place] 2 [place] Right Side: Ling Gu - extra point for low back pain Da Joleen - extra point for low back pain SI 3 - Master point of the [place], reduces spinal cord pain and inflammation, balance the BL meridian, decrease tension in paraspinal muscles SI 2 - reduces spinal cord pain and inflammation, balance the BL meridian, decrease tension in paraspinal muscles, decrease flexion/extension pain KI 3 - balance the BL meridian, reduce pain in flexion and extension, decrease LBP KI 4 - balance the BL meridian, reduce pain in flexion and extension, decrease LBP KI 10 - [place] of KI meridian, improve water metabolism SP 3, 5 - balance the ST and SP meridians, reduce pain in rotation SP 9 x 2 leanne - decrease LBP, balance ST and SP meridians, improve blood flow LR 3 - decrease stress and tension, relax the scapula, balance LR, GB, and HT meridians, move the blood, improve circulation LR 8 - improve blood flow and circulation, balance LR and GB meridians Left Side: DOMINICK 1-6 balance the BL meridian reduce pain in flexion and extension, decrease LBP ST [address] 41 relax anterior hip, balance ST meridian GB 34 x 2 leanne - empirical point to relax the tendons, decrease sciatic pain GB 40 - open the hip, reduce pain in side-bending, decrease sciatic pain GB 41 - Master point of Cindy Jeannie ([place]), decrease pain and inflammation in LB BL 65 - Bee point of BL meridian, decrease acute low back pain, decrease pain in flexion and extension DU 26 - acute LBP Patient rested comfortable for fifty minutes. Plan: A course of treatment, six to ten treatments, two times per week, minimum, is recommended to reduce inflammation and pain. 06/27/16 16:03 06/27/16 16:14 07/02/16 18:36 07/02/16 18:43 Received a call from patients daughter today. Mr. Lowery was "combative" and did not want to stay at rehab. He was convinced to stay until Tuesday. Upon arrival, the patient seemed in good spirits, calm, and was looking forward to acupuncture. He said he was surprised how much he liked it, how much it relaxes him, and it improves his sleep. He is unsure if it helps his pain. Treatment: Auricular: [place]/Rapid Acupuncture (BFA): 5 points bilateral shown to affect the CARPENTER REPAIR and reduce pain. Cingular Gyrate [place] 2 [place] Right Side: Ling Gu - extra point for low back pain Da Joleen - extra point for low back pain SI 3 - Master point of the [place], reduces spinal cord pain and inflammation, balance the BL meridian, decrease tension in paraspinal muscles SI 2 - reduces spinal cord pain and inflammation, balance the BL meridian, decrease tension in paraspinal muscles, decrease flexion/extension pain KI 3 - balance the BL meridian, reduce pain in flexion and extension, decrease LBP KI 4 - balance the BL meridian, reduce pain in flexion and extension, decrease LBP KI 10 - He Sea of KI meridian, improve water metabolism SP 3, 5 - balance the ST and SP meridians, reduce pain in rotation SP 9 x 2 leanne - decrease LBP, balance ST and SP meridians, improve blood flow LR 3 - decrease stress and tension, relax the scapula, balance LR, GB, and HT meridians, move the blood, improve circulation LR 8 - improve blood flow and circulation, balance LR and GB meridians Left Side: DOMINICK 1-6 balance the BL meridian reduce pain in flexion and extension, decrease LBP ST [address] 41 relax anterior hip, balance ST meridian GB 34 x 2 leanne - empirical point to relax the tendons, decrease sciatic pain GB 40 - open the hip, reduce pain in side-bending, decrease sciatic pain GB 41 - Master point of Cindy Jeannie ([place]), decrease pain and inflammation in LB BL 65 - Bee point of BL meridian, decrease acute low back pain, decrease pain in flexion and extension Patient rested comfortable for fifty minutes. Objective: Vital Signs Temp Pulse Resp BP Pulse Ox 36.5 C 80 16 121/68 H 95 07/02/16 06:55 07/02/16 17:42 07/02/16 06:55 07/02/16 17:42 07/02/16 06:55 07/01/16 07/02/16 07/03/16 05:59 05:59 05:59 Intake Total 1276 1060 730 Output Total 100 500 Balance 1276 960 230 ICD10 Worksheet Patient Problems: Problems Problem Status Onset ACS (acute coronary syndrome) Acute CHF (congestive heart failure) Acute Multiple falls Acute Subdural hematoma Acute Thigh contusion Acute
[2016-07-02] MEDS: ROSUVASTATIN CALCIUM 20 MG TAB PO SCH (19:56)
[2016-07-02] MEDS: lamoTRIgine 100 MG TAB PO SCH (19:56)
[2016-07-02] MEDS: MELATONIN 3 MG TAB PO SCH (19:57)
[2016-07-02] MEDS: PATCH REMOVAL 1 EA PATCH TD SCH (20:14)
[2016-07-02] MEDS: clonazePAM 0.5 MG TAB PO PRN (22:02)
[2016-07-03] MEDS: ACETAMINOPHEN 325 MG TAB PO PRN (01:20)
[2016-07-03] MEDS: LEVOTHYROXINE 88 MCG TAB PO SCH (05:43)
[2016-07-03] MEDS: traMADol 50 MG TAB PO SCH ×4 (05:43→22:41)
--- NOTE | 2016-07-03 07:39 | SOAPPROG ---
SOAP Progress Note Assessment/Plan: * Debility status post multiple falls and subdural hematoma on 06/20/16. Initial FIM 81, gain to 85 as of 06/30/16. I bed mobility. Ambulation, >500'; has had LOB with back/leg pain spasms. LOB and fall risk with impulsivity and distraction when focused on accomplishing tasks. Continue physical and occupational therapy to optimize activities of daily living and mobility. Continue chair & bed alarms. * Cognitive impairment. Deficit to problem solving, exec fn, new learning, attn. 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 * Leg pain. Possibly due to spinal stenosis; bruising may contribute. Continue acetaminophen. Lidocaine patch has also been ordered, on R thigh, not helping, will d/c 06/25/16. D/C ibuprofen as contraindicated with CHF and ASA. Initiated tramadol at 25 mg Q 6 hr on 06/24/16; also on gabapentin 300 mg BID. Acupuncture and massage per his request; acupuncture seems to be helpful and pain is improved. * Deep venous thrombosis risk. Subdural hematoma is relative contraindication to anticoagulation. Likely has adequate mobility to be at reduced DVT risk. Chronic/stable conditions: * Depression. Continue duloxetine, clonazepam, and lamotrigine. He appears to be in good spirits. He reports prior unsuccessful attempts to taper clonazepam. * History of ventricular tachycardia. He has had an ablation procedure. He has an AICD in place. Continue sotalol. * Congestive heart failure. Continue carvedilol. He appears to be compensated at present and in fluid balance. Observe for any change in his cardiorespiratory status. * Dyslipidemia. Continue Rosuvastatin. * Psoriasis. This is mild and is not currently causing any discomfort. Will prescribe PRN triamcinolone.. * Constipation. Responding to bowel program. * Benign prostatic hypertrophy. Continue tamsulosin and observe for normal voiding. Goal to recover function at FATUMA level. Will need help with medication management, and will need to be safe independent in room. Discharge date set for 07/07/16. Family conference 07/06/16. Subjective: No events. No complaints this a.m. Really wants to d/c [facility]. Denies pain, SOB, chills. Objective: Vital Signs Temp Pulse Resp BP Pulse Ox 36.7 C 71 16 124/70 H 95 07/02/16 20:00 07/02/16 20:00 07/02/16 20:00 07/02/16 20:00 07/02/16 20:00 07/02/16 07/03/16 07/04/16 05:59 05:59 05:59 Intake Total 1060 1130 Output Total 100 1200 300 Balance 960 -70 -300 - Pending Discharge Pending Discharge Within 24 Hours: No Pending Discharge Within 48 Hours: No Physical Exam - Physical Exam General Appearance: alert, no apparent distress Neck: supple Respiratory: crackles (LLL), No respiratory distress, No accessory muscle use Cardiac/Chest: regular rate, rhythm Abdomen: non-tender, soft Neuro/Psych: alert, normal mood/affect, oriented x 3 ICD10 Worksheet Patient Problems: Problems Problem Status Onset ACS (acute coronary syndrome) Acute CHF (congestive heart failure) Acute Multiple falls Acute Subdural hematoma Acute Thigh contusion Acute
[2016-07-03] MEDS: CARVEDILOL 6.25 MG TAB PO SCH ×2 (09:55→18:46)
[2016-07-03] MEDS: POLYETHYLENE GLYCOL 3350 17 GM PKT PO SCH (09:57)
[2016-07-03] MEDS: ASCORBIC ACID 500 MG TAB PO SCH (09:58)
[2016-07-03] MEDS: DULoxetine 60 MG CAP PO SCH (09:58)
[2016-07-03] MEDS: CHOLECALCIFEROL VIT D3 2,000 UNITS TAB/CAP PO SCH (09:58)
[2016-07-03] MEDS: ASPIRIN 325 MG TAB PO SCH (09:58)
[2016-07-03] MEDS: CYANO/VITAMIN B12 1000 MCG TAB PO SCH (09:58)
[2016-07-03] MEDS: FAMOTIDINE 20 MG TAB PO SCH ×2 (09:58→21:37)
[2016-07-03] MEDS: OMEGA-3 FATTY ACIDS 1,000 MG CAP PO SCH ×2 (09:58→21:13)
[2016-07-03] MEDS: GABAPENTIN 300 MG CAP PO SCH ×2 (09:58→21:12)
[2016-07-03] MEDS: SOTALOL HCL 80 MG TAB PO SCH ×2 (09:59→21:13)
[2016-07-03] MEDS: LIDOCAINE 5% 1 EA PATCH TD SCH (11:10)
[2016-07-03] MEDS: CLOPIDOGREL BISULFATE 75 MG TAB PO SCH (18:46)
[2016-07-03] MEDS: TAMSULOSIN HCL 0.4 MG CAP PO SCH (18:47)
[2016-07-03] MEDS: DULoxetine 30 MG CAP PO SCH (18:47)
[2016-07-03] MEDS: MELATONIN 3 MG TAB PO SCH (21:12)
[2016-07-03] MEDS: ROSUVASTATIN CALCIUM 20 MG TAB PO SCH (21:12)
[2016-07-03] MEDS: lamoTRIgine 100 MG TAB PO SCH (21:12)
[2016-07-03] MEDS: PATCH REMOVAL 1 EA PATCH TD SCH (21:35)
[2016-07-03] MEDS ORDERED: traZODone 50 MG TAB ONE (21:36)
[2016-07-03] MEDS: clonazePAM 0.5 MG TAB PO PRN (22:38)
[2016-07-04] MEDS: traMADol 50 MG TAB PO SCH ×4 (04:44→22:30)
[2016-07-04] MEDS: LEVOTHYROXINE 88 MCG TAB PO SCH (04:45)
--- NOTE | 2016-07-04 08:06 | SOAPPROG ---
SOAP Progress Note Assessment/Plan: * Debility status post multiple falls and subdural hematoma on 06/20/16. Initial FIM 81, gain to 85 as of 06/30/16. I bed mobility. Ambulation, >500'; has had LOB with back/leg pain spasms. LOB and fall risk with impulsivity and distraction when focused on accomplishing tasks. Continue physical and occupational therapy to optimize activities of daily living and mobility. Continue chair & bed alarms. * Cognitive impairment. Deficit to problem solving, exec fn, new learning, attn. 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 * Leg pain. Possibly due to spinal stenosis; bruising may contribute. Continue acetaminophen. Lidocaine patch has also been ordered, on R thigh, not helping, will d/c 06/25/16. D/C ibuprofen as contraindicated with CHF and ASA. Initiated tramadol at 25 mg Q 6 hr on 06/24/16; Increased gabapentin 300- 300-600 mg. Acupuncture and massage per his request; acupuncture seems to be helpful and pain is improved. * Deep venous thrombosis risk. Subdural hematoma is relative contraindication to anticoagulation. Likely has adequate mobility to be at reduced DVT risk. Chronic/stable conditions: * Depression. Continue duloxetine, clonazepam, and lamotrigine. He appears to be in good spirits. He reports prior unsuccessful attempts to taper clonazepam. * History of ventricular tachycardia. He has had an ablation procedure. He has an AICD in place. Continue sotalol. * Congestive heart failure. Continue carvedilol. He appears to be compensated at present and in fluid balance. Observe for any change in his cardiorespiratory status. * Dyslipidemia. Continue Rosuvastatin. * Psoriasis. This is mild and is not currently causing any discomfort. Will prescribe PRN triamcinolone.. * Constipation. Responding to bowel program. * Benign prostatic hypertrophy. Continue tamsulosin and observe for normal voiding. Goal to recover function at [facility]CI level. Will need help with medication management, and will need to be safe independent in room. Discharge date set for 07/07/16. Family conference 07/06/16. Subjective: No events. C/o ongoing sciatica pain, with only modest improvement with current therapies. No SOB/Chills. Objective: Vital Signs Temp Pulse Resp BP Pulse Ox 36.4 C 79 16 141/81 H 96 07/04/16 06:33 07/04/16 06:33 07/04/16 06:33 07/04/16 06:33 07/04/16 06:33 07/03/16 07/04/16 07/05/16 05:59 05:59 05:59 Intake Total 1130 950 Output Total 1200 2000 500 Balance -70 -1050 -500 - Pending Discharge Pending Discharge Within 24 Hours: No Pending Discharge Within 48 Hours: No Physical Exam - Physical Exam General Appearance: alert, no apparent distress Neck: supple Respiratory: lungs clear Cardiac/Chest: regular rate, rhythm Abdomen: normal bowel sounds, non-tender Neuro/Psych: alert, normal mood/affect, oriented x 3 ICD10 Worksheet Patient Problems: Problems Problem Status Onset ACS (acute coronary syndrome) Acute CHF (congestive heart failure) Acute Multiple falls Acute Subdural hematoma Acute Thigh contusion Acute
[2016-07-04] MEDS: ASPIRIN 325 MG TAB PO SCH (10:06)
[2016-07-04] MEDS: ASCORBIC ACID 500 MG TAB PO SCH (10:06)
[2016-07-04] MEDS: DULoxetine 60 MG CAP PO SCH (10:06)
[2016-07-04] MEDS: CARVEDILOL 6.25 MG TAB PO SCH ×2 (10:06→17:48)
[2016-07-04] MEDS: CHOLECALCIFEROL VIT D3 2,000 UNITS TAB/CAP PO SCH (10:07)
[2016-07-04] MEDS: SOTALOL HCL 80 MG TAB PO SCH ×2 (10:07→20:50)
[2016-07-04] MEDS: OMEGA-3 FATTY ACIDS 1,000 MG CAP PO SCH ×2 (10:07→20:51)
[2016-07-04] MEDS: FAMOTIDINE 20 MG TAB PO SCH ×2 (10:07→20:51)
[2016-07-04] MEDS: CYANO/VITAMIN B12 1000 MCG TAB PO SCH (10:08)
[2016-07-04] MEDS: LIDOCAINE 5% 1 EA PATCH TD SCH (10:08)
[2016-07-04] MEDS: POLYETHYLENE GLYCOL 3350 17 GM PKT PO SCH (10:08)
[2016-07-04] MEDS ORDERED: GABAPENTIN 300 MG CAP PO SCH (15:00)
[2016-07-04] MEDS: GABAPENTIN 300 MG CAP PO SCH ×2 (16:32→20:50)
[2016-07-04] MEDS: DULoxetine 30 MG CAP PO SCH (17:49)
[2016-07-04] MEDS: CLOPIDOGREL BISULFATE 75 MG TAB PO SCH (17:49)
[2016-07-04] MEDS: TAMSULOSIN HCL 0.4 MG CAP PO SCH (17:49)
[2016-07-04] MEDS: ACETAMINOPHEN 325 MG TAB PO PRN (19:26)
[2016-07-04] MEDS: ROSUVASTATIN CALCIUM 20 MG TAB PO SCH (20:51)
[2016-07-04] MEDS: lamoTRIgine 100 MG TAB PO SCH (20:51)
[2016-07-04] MEDS: TRIAMCINOLONE 0.1% 15GM OINT TP PRN (20:52)
[2016-07-04] MEDS: MELATONIN 3 MG TAB PO SCH (20:52)
[2016-07-04] MEDS: PATCH REMOVAL 1 EA PATCH TD SCH (21:53)
[2016-07-04] MEDS: clonazePAM 0.5 MG TAB PO PRN (22:30)
[2016-07-05] MEDS: LEVOTHYROXINE 88 MCG TAB PO SCH (06:10)
[2016-07-05] MEDS: traMADol 50 MG TAB PO SCH ×4 (06:10→21:47)
[2016-07-05] MEDS: CARVEDILOL 6.25 MG TAB PO SCH ×2 (08:06→17:44)
[2016-07-05] MEDS: GABAPENTIN 300 MG CAP PO SCH ×3 (08:06→21:48)
[2016-07-05] MEDS: ASCORBIC ACID 500 MG TAB PO SCH (08:36)
[2016-07-05] MEDS: CYANO/VITAMIN B12 1000 MCG TAB PO SCH (08:36)
[2016-07-05] MEDS: ASPIRIN 325 MG TAB PO SCH (08:36)
[2016-07-05] MEDS: CHOLECALCIFEROL VIT D3 2,000 UNITS TAB/CAP PO SCH (08:37)
[2016-07-05] MEDS: FAMOTIDINE 20 MG TAB PO SCH ×2 (08:37→21:49)
[2016-07-05] MEDS: DULoxetine 60 MG CAP PO SCH (08:37)
[2016-07-05] MEDS: OMEGA-3 FATTY ACIDS 1,000 MG CAP PO SCH ×2 (08:38→21:47)
[2016-07-05] MEDS: POLYETHYLENE GLYCOL 3350 17 GM PKT PO SCH (08:39)
[2016-07-05] MEDS: SOTALOL HCL 80 MG TAB PO SCH ×2 (08:39→21:47)
[2016-07-05] MEDS: LIDOCAINE 5% 1 EA PATCH TD SCH (08:43)
--- NOTE | 2016-07-05 16:06 | SOAPPROG ---
SOAP Progress Note Assessment/Plan: * Debility status post multiple falls and subdural hematoma on 06/20/16. Initial FIM 81, gain to 85 as of 06/30/16. I bed mobility. Ambulation, >500'; has had LOB with back/leg pain spasms. LOB and fall risk with impulsivity and distraction when focused on accomplishing tasks. Continue physical and occupational therapy to optimize activities of daily living and mobility. Continue chair & bed alarms. * Cognitive impairment. Deficit to problem solving, exec fn, new learning, attn. 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 * Leg pain. Possibly due to spinal stenosis; bruising may contribute. Continue acetaminophen. Lidocaine patch has also been ordered, on R thigh, not helping, will d/c 06/25/16. D/C ibuprofen as contraindicated with CHF and ASA. Initiated tramadol at 25 mg Q 6 hr on 06/24/16; Increased gabapentin 300- 300-600 mg with good effect. Acupuncture and massage per his request; acupuncture seems to be helpful and pain is improved. * Deep venous thrombosis risk. Subdural hematoma is relative contraindication to anticoagulation. Likely has adequate mobility to be at reduced DVT risk. Chronic/stable conditions: * Depression. Continue duloxetine, clonazepam, and lamotrigine. He appears to be in good spirits. He reports prior unsuccessful attempts to taper clonazepam. * History of ventricular tachycardia. He has had an ablation procedure. He has an AICD in place. Continue sotalol. * Congestive heart failure. Continue carvedilol. He appears to be compensated at present and in fluid balance. Observe for any change in his cardiorespiratory status. * Dyslipidemia. Continue Rosuvastatin. * Psoriasis. This is mild and is not currently causing any discomfort. Will prescribe PRN triamcinolone.. * Constipation. Responding to bowel program. * Benign prostatic hypertrophy. Continue tamsulosin and observe for normal voiding. Goal to recover function at FATUMA level. Will need help with medication management, and will need to be safe independent in room. Discharge date set for 07/07/16. Family conference 07/06/16. Subjective: No events. reports much improved sciatica pain this a.m., eager to d/c but is otherwise without complaints. Objective: Vital Signs Temp Pulse Resp BP Pulse Ox 36.5 C 84 16 125/83 H 93 07/05/16 06:17 07/05/16 08:39 07/05/16 06:17 07/05/16 08:39 07/05/16 06:17 07/04/16 07/05/16 07/06/16 05:59 05:59 05:59 Intake Total 676 786 1653 Output Total 1999 500 500 Balance -1050 476 515 - Pending Discharge Pending Discharge Within 24 Hours: No Pending Discharge Within 48 Hours: Yes Pending Discharge Date: 07/07/16 Pending Discharge Time: 11:00 Physical Exam - Physical Exam General Appearance: alert, no apparent distress Neck: supple Respiratory: lungs clear, normal breath sounds Cardiac/Chest: regular rate, rhythm Abdomen: normal bowel sounds, soft Skin: warm/dry Neuro/Psych: alert, normal mood/affect, oriented x 3 ICD10 Worksheet Patient Problems: Problems Problem Status Onset ACS (acute coronary syndrome) Acute CHF (congestive heart failure) Acute Multiple falls Acute Subdural hematoma Acute Thigh contusion Acute
[2016-07-05] MEDS: CLOPIDOGREL BISULFATE 75 MG TAB PO SCH (17:44)
[2016-07-05] MEDS: TAMSULOSIN HCL 0.4 MG CAP PO SCH (17:44)
[2016-07-05] MEDS: DULoxetine 30 MG CAP PO SCH (17:44)
[2016-07-05] MEDS: clonazePAM 0.5 MG TAB PO PRN (21:48)
[2016-07-05] MEDS: lamoTRIgine 100 MG TAB PO SCH (21:48)
[2016-07-05] MEDS: ROSUVASTATIN CALCIUM 20 MG TAB PO SCH (21:49)
[2016-07-05] MEDS: MELATONIN 3 MG TAB PO SCH (21:49)
[2016-07-05] MEDS: PATCH REMOVAL 1 EA PATCH TD SCH (21:51)
[2016-07-06 06:19] VITALS: RESP 16; TEMP 98.2; O2SAT 94
[2016-07-06] MEDS: GABAPENTIN 300 MG CAP PO SCH ×2 (06:24→15:46)
[2016-07-06] MEDS: traMADol 50 MG TAB PO SCH ×2 (06:24→12:03)
[2016-07-06] MEDS: LEVOTHYROXINE 88 MCG TAB PO SCH (06:24)
[2016-07-06] MEDS: ACETAMINOPHEN 325 MG TAB PO PRN ×2 (06:25→12:03)
[2016-07-06] MEDS: POLYETHYLENE GLYCOL 3350 17 GM PKT PO SCH (08:30)
[2016-07-06] MEDS: OMEGA-3 FATTY ACIDS 1,000 MG CAP PO SCH (08:30)
[2016-07-06] MEDS: ASPIRIN 325 MG TAB PO SCH (08:31)
[2016-07-06] MEDS: FAMOTIDINE 20 MG TAB PO SCH (08:31)
[2016-07-06] MEDS: CARVEDILOL 6.25 MG TAB PO SCH (08:32)
[2016-07-06] MEDS: ASCORBIC ACID 500 MG TAB PO SCH (08:32)
[2016-07-06] MEDS: DULoxetine 60 MG CAP PO SCH (08:32)
[2016-07-06] MEDS: CYANO/VITAMIN B12 1000 MCG TAB PO SCH (08:32)
[2016-07-06] MEDS: CHOLECALCIFEROL VIT D3 2,000 UNITS TAB/CAP PO SCH (08:32)
[2016-07-06] MEDS: SOTALOL HCL 80 MG TAB PO SCH (08:35)
[2016-07-06 08:36] VITALS: BP 119/73; PULSE 75
[2016-07-06] MEDS: LIDOCAINE 5% 1 EA PATCH TD SCH (08:46)
--- NOTE | 2016-07-06 10:37 | PDOREHIP ---
Admission [facility] - Admission - 3 Day Assessment Period Admission Date/Day 1: 06/23/16 Day 2: 06/24/16 Day 3: 06/25/16 Discharge [facility] - Discharge - 3 Day Assessment Period 2 Days Prior to Anticipated Discharge Date: 07/04/16 1 Day Prior to Anticipated Discharge Date: 07/05/16 Anticipated Discharge Date: 07/06/16 - Discharge Skin Conditions Unhealed Pressure Ulcer (1 or more/Stage 1 or >)-Discharge: 0. No
[2016-07-06] MEDS ORDERED: GABAPENTIN 300 MG CAP ONE (15:44)
--- NOTE | 2016-07-06 15:48 | GDS ---
[f rep st] DISCHARGE SUMMARY ADMITTING DIAGNOSIS: Debility, status post fall with traumatic brain injury and subdural hematoma. DISCHARGE DIAGNOSIS: Debility, status post fall with traumatic brain injury and subdural hematoma. OTHER DISCHARGE DIAGNOSES: 1. Cognitive impairment following brain injury. 2. Leg pain. CONSULTATIONS: He had acupuncture during his stay. PROCEDURES: Acupuncture. COMPLICATIONS: There were none. HISTORY/HOSPITAL COURSE: The patient suffered a fall at home on June 20, 2016; this was several days after he had undergone an ablation procedure for cardiac arrhythmia, and at the time he was on apixaban for postprocedural anticoagulation. He was also taking clopidogrel and aspirin for coronary artery disease. He hit his head in one of his falls. He was taken to the emergency department. A head CT showed a subacute right subdural hematoma in the right parietal region. He was followed by Neurosurgery with repeat head CTs. Surgery was not necessary. He was stabilized and discharged to inpatient rehabilitation. He had improvement during his stay. His initial functional improvement measure was 81 on 06/25/2016. This is consistent with assisted living facility level of care; however, he had significant risk of falling. He had improvement in his functional independence measure to 85 as of 06/30/2016. This is still consistent with assisted living facility level of care. He had achieved independence with bed mobility. He was able to ambulate greater than 500 feet with a walker. He was at risk to fall when he had spasms of back or leg pain, which would distract him, and also with impulsivity if he were to reach for an object without paying attention to safety precautions, or when he was focused on accomplishing tasks other than ambulating. A Gambino balance inventory was done , and he scored 35/56, which is consistent with a high fall risk. He would lose his balance and require contact guard assist with almost every occupational therapy session. He required contact guard assistance for shower transfer and sometimes needed reminders to bathe. He had some improvement in his cognition, improved reading comprehension was noted, and some improvement in his attention; however, he will require assistance with medication management. He had decreased memory for new learning and, in particular, for new strategies regarding safety. Regarding his leg pain, he received acupuncture with some improvement. He was started on a low dose of tramadol 25 mg q.6 hours. He was titrated on gabapentin to 300 mg t.i.d. with an additional 300 mg at h.s., and overall he had some improvement in his pain. It was clinically consistent with spinal stenosis. He was planning to have an epidural steroid injection, but it had been postponed due to the cardiac ablation procedure and the need for anticoagulation. Chronic conditions including depression, congestive heart failure, dyslipidemia , and benign prostatic hypertrophy were stable and well controlled on his admission medications. DISCHARGE DAY PHYSICAL EXAMINATION: VITAL SIGNS: Blood pressure is 119/73, heart rate is 75, respiratory rate is 16, oxygen saturation is 94% on room air, and temperature 36.8 degrees centigrade. GENERAL: Well-nourished, well- developed man, cooperative, and in no acute distress. HEART: There is a regular rate and rhythm with no murmurs, rubs, or gallops. LUNGS: Clear to auscultation bilaterally. ABDOMEN: Soft, nontender, and nondistended with normoactive bowel sounds. EXTREMITIES: No cyanosis, clubbing, or edema. NEUROLOGIC: Alert and oriented x3, though he is distractible. No focal weakness. Sensation is intact to light touch. He ambulates well with a front- wheeled walker with a normal pace and normal gait with a step-through pattern; however, he is observed to neglect proper placement of his walker, for instance when getting up from a chair and needs reminders to be compliant with proper walker use. LABORATORIES: No laboratory studies done during his stay. CONDITION UPON DISCHARGE: Good. ACTIVITY: Ad pat, but he needs supervision with all activities involving ambulation due to high fall risk. DIET: Cardiac. DATE OF NEXT APPOINTMENT: He should follow up with: 1. Dr. Gomez, his primary care provider, within 1-[address] Kirby with electrophysiology within 1-[address] Park of neurosurgery within 1-2 weeks. MEDICATIONS AT DISCHARGE: 1. Ascorbic acid 500 mg p.o. daily. 2. Cholecalciferol 2000 units p.o. daily. 3. Cyanocobalamin 1000 mcg p.o. daily. 4. Duloxetine 60 mg p.o. q.a.m. and 30 mg p.o. at 1800. 5. Gabapentin 300 mg t.i.d. with an extra 300 mg at h.s. 6. Hollis-3 fatty acids 2000 mg p.o. b.i.d. 7. Polyethylene glycol 17 g p.o. daily. 8. Tramadol 25 mg p.o. q.6 hours. 9. Ranitidine 300 mg p.o. twice daily. 10. Aspirin 325 mg p.o. daily. 11. Acetaminophen p.r.n. 12. Melatonin 3 mg p.o. q.h.s. 13. Carvedilol 6.25 mg p.o. b.i.d. 14. Clonazepam 0.5 mg p.o. b.i.d. 15. Clopidogrel 75 mg p.o. daily. 16. Lamotrigine 200 mg p.o. q.h.s. 17. Levothyroxine 88 mcg p.o. daily. 18. Rosuvastatin 40 mg p.o. daily. 19. Sotalol 80 mg p.o. b.i.d. 20. Tamsulosin 0.4 mg p.o. daily. ISSUES TO BE ADDRESSED AT FOLLOWUP: 1. Mobility and safety. He will have hair salon manager care initially at the assisted living facility to supervise activities of daily living which require ambulation and transfers. He was reticent to agree to this, but ultimately he did agree, and it is hoped that he will be stable on his feet and not continue to require such a close level of supervision. He will have physical and occupational therapy at the assisted living facility, and he can follow up on these issues with Dr. Gomez, his primary care provider. 2. Subdural hematoma and likely spinal stenosis. He will follow up with Dr. Park of neurosurgery regarding his recovery from the subdural hematoma and for a possible epidural spinal injection. 3. Recent cardiac ablation procedure. He will follow up with solid fiber paster operator Dr. Kirby. 4. Cognitive impairment, status post traumatic brain injury. He will continue to work with Speech and Language Pathology after his discharge home, and he can follow up again with his primary care provider, Dr. Gomez. Greater than 45 minutes were spent on this discharge, including medication reconcilation and coordination of follow-up plans. An additional 30 minutes were spent in a family meeting. /[id number]/MODL MTDD
== END 2016-07-06 15:16 | disposition home health service (06) | DRG 945 ==
LOC: BREH 13:30
PROVIDERS: ADMIT Internal Medicine; ATTEND Internal Medicine
PROC: F08Z0FZ Bathing/Showering Techniques Treatment using Assistive, Adaptive, Supportive or Protective Equipment (ICD-10-PCS; principal; 2016-06-23)
PROC: F07Z9FZ Gait Training/Functional Ambulation Treatment using Assistive, Adaptive, Supportive or Protective Equipment (ICD-10-PCS; principal; 2016-06-23)
PROC: F08Z1FZ Dressing Techniques Treatment using Assistive, Adaptive, Supportive or Protective Equipment (ICD-10-PCS; principal; 2016-06-23)
PROC: F0636ZZ Communicative/Cognitive Integration Skills Treatment of Neurological System - Whole Body (ICD-10-PCS; principal; 2016-06-23)
PROC: F07Z5FZ Bed Mobility Treatment using Assistive, Adaptive, Supportive or Protective Equipment (ICD-10-PCS; principal; 2016-06-23)
PROC: F08Z2FZ Grooming/Personal Hygiene Treatment using Assistive, Adaptive, Supportive or Protective Equipment (ICD-10-PCS; principal; 2016-06-23)
DX: S06.5X9D Traumatic subdural hemorrhage with loss of consciousness of unspecified duration, subsequent encounter (principal); S80.11XD Contusion of right lower leg, subsequent encounter; G31.84 Mild cognitive impairment of uncertain or unknown etiology; I50.30 Unspecified diastolic (congestive) heart failure; M48.00 Spinal stenosis, site unspecified; W01.10XD Fall on same level from slipping, tripping and stumbling with subsequent striking against unspecified object, subsequent encounter; I25.10 Atherosclerotic heart disease of native coronary artery without angina pectoris; E11.42 Type 2 diabetes mellitus with diabetic polyneuropathy; L40.9 Psoriasis, unspecified; F32.9 Major depressive disorder, single episode, unspecified; N40.0 Benign prostatic hyperplasia without lower urinary tract symptoms; K59.00 Constipation, unspecified; Z95.1 Presence of aortocoronary bypass graft; Z95.810 Presence of automatic (implantable) cardiac defibrillator; Z86.79 Personal history of other diseases of the circulatory system; Z91.81 History of falling
CPT/HCPCS: 92507-GN; 92522-GN; 97110-GO; 97110-GP; 97112-GO; 97112-GP; 97116-GP; 97140-GP; 97162-GP; 97166-GO; 97530-GO; 97530-GP; 97532-GO; 97535-GO; 99366-GO

== ENCOUNTER 2016-07-19 12:21 | Emergency (ER) | payer OTHER, MEDICARE ==
--- NOTE | 2016-07-19 12:38 | EDPHY ---
H & P Stated Complaint: generalized weakness, ,low BP, sent by PCP Time Seen by Provider: 07/19/16 12:37 - Personal History Current Tetanus/Diphtheria Vaccine: Yes Current Tetanus Diphtheria and Acellular Pertussis (TDAP): Yes - Medical/Surgical History Hx Asthma: No Hx Chronic Respiratory Disease: No Hx Diabetes: Yes Hx Cardiac Disease: Yes Hx Renal Disease: No Hx Cirrhosis: No Hx Alcoholism: No Hx HIV/AIDS: No Hx Splenectomy or Spleen Trauma: No Other PMH: Cardiac disease, hyperthyroid, open heart surgery, hernia repair, hep C, sciatic pain, DM2, psoriasis - Social History Smoking Status: Former smoker Constitutional: Initial Vital Signs Temperature (C) 36.9 C 07/19/16 12:32 Heart Rate 76 07/19/16 12:32 Respiratory Rate 18 07/19/16 12:32 Blood Pressure 82/52 L 07/19/16 12:32 O2 Sat (%) 93 07/19/16 12:32 O2 Delivery Mode Room Air Allergies/Adverse Reactions: Sulfa (Sulfonamide Antibiotics) Allergy (Intermediate, Verified 07/19/16 12:31) Home Medications: Medication Instructions Recorded Ranitidine HCl [Ranitidine HCl 150 300 mg PO BID 04/18/11 mg] Aspirin [Aspirin 325 mg (*)] 325 mg PO DAILY 06/15/16 Herbals/Supplements -Info Only 1 ea PO DAILY 06/15/16 Acetaminophen [Tylenol 325mg (*)] 325 - 650 mg PO Q4HRS PRN #0 tab 06/16/16 Melatonin [Melatonin 3 MG (*)] 3 mg PO HS tab 06/23/16 Ascorbic Acid [Vitamin C 500 mg 500 mg PO DAILY #0 tab 07/06/16 (*)] Carvedilol [Coreg (*)] 6.25 mg PO BIDMEAL #60 tab 07/06/16 Cholecalciferol Vit D3 [Vitamin D3 2,000 units PO DAILY #0 each 07/06/16 2000 units tab (OTC)] Clopidogrel Bisulfate [Plavix (*)] 75 mg PO DAILY@1730 #30 tab 07/06/16 Cyanocobalamin [Vitamin B12 (*)] 1,000 mcg PO DAILY #0 tab 07/06/16 DULoxetine [Cymbalta 30 MG (*)] 30 mg PO DAILY18 #30 05/30/17 DULoxetine [Cymbalta 30 MG (*)] 30 mg PO DAILY18 #30 cap 07/06/16 DULoxetine [Cymbalta 60 MG (*)] 60 mg PO DAILY #30 cap 07/06/16 Gabapentin [Neurontin 300 MG (*)] 300 mg PO BID@07,15 #60 cap 07/06/16 Gabapentin [Neurontin 300 MG (*)] 600 mg PO HS #30 cap 07/06/16 Levothyroxine [Synthroid 88 mcg 88 mcg PO DAILY06 #30 tab 07/06/16 (*)] Lincoln-3 Fatty Acids [Fish Oil 1000 2,000 mg PO BID #0 cap 07/06/16 mg (*)] Polyethylene Glycol 3350 [Miralax 17 gm PO DAILY #0 pkt 07/06/16 17 gm (*)] Rosuvastatin Calcium [Crestor 40mg 40 mg PO DAILY@17 #30 tab 07/06/16 (*)] Sotalol HCl [Betapace 80 MG (*)] 80 mg PO BID #60 tab 07/06/16 Tamsulosin HCl [Flomax 0.4 MG (*)] 0.4 mg PO DAILY18 #30 cap 17 clonazePAM [Klonopin (*)] 0.5 - 1 mg PO BID PRN #60 tab 07/06/16 lamoTRIgine [LamICTAL 100 MG (*)] 200 mg PO HS #60 tab 07/06/16 traMADol [Ultram 50 mg (*)] 25 mg PO Q6HRS #60 tab 07/06/16 Medical Decision Making ED Course/Re-evaluation: CHIEF COMPLAINT: Hypotension HISTORY OF PRESENT ILLNESS: This patient is a 76 year old male referred to the Emergency Department from his PCP, Dr. Ramos, for acute hypotension. He presented to his knitting inspector today to be evaluated for chronic complaint of low back rajiv with bilateral sciatica; at time of presentation to Dr. Ramos's office, his blood pressure was measured at 60/55, prompting his presentation to the ED. He had a recent cardiac ablation performed by Dr. Kirby on June 15 for atrial fibrillation and has had apparent hypotensive episodes since discharge home from rehab. He takes carvedilol; last dose was yesterday. Upon presentation today, he complains of generalized weakness. He denies chest pain, shortness of breath, lightheadedness, headache, or any additional complaints. REVIEW OF SYSTEMS: A 10 point review of systems was performed and is negative with the exception of the elements mentioned in the history of present illness. PHYSICAL EXAM: HR 76, BP 82/52, O2 Sat 93%, RR 18. Temp noted at 36.9C. General Appearance: Alert, well hydrated, appropriate, and non-toxic appearing. Head: Atraumatic without scalp tenderness or obvious injury Eyes: Pupils equal, round, reactive to light and accommodation, EOMI, no trauma , no injection. Ears: Clear bilaterally, no perforation, normal landmarks Nose: Atraumatic, no rhinorrhea, clear. Throat: There is no erythema or exudates, no lesions, normal tonsils, mucus membranes moist. Neck: Supple, 2+ carotid upstroke, nontender, no lymphadenopathy. Respiratory: No retractions, no distress, no wheezes, and no accessory muscle use. Lungs are clear to auscultation bilaterally. Cardiovascular: Regular rate and rhythm, no murmurs, rubs, or gallops. Bilateral carotid, radial, dorsalis pedis, and posterior tibial pulses intact. Good capillary refill all extremities. Gastrointestinal: Abdomen is soft, nontender, non-distended, no masses, no rebound, no guarding, no peritoneal signs. Musculoskeletal: Normal active ROM of all extremities, atraumatic. Neurological: Alert, appropriate, and interactive. The patient has normal DTRs and non-focal cranial nerves, motor, sensory, and cerebellar exam. Skin: No rashes, good turgor, no nodules on palpation. Past medical history: CAD Past surgical history: CABG Family history: Non-contributory Social history: Family at bedside DIFFERENTIAL DIAGNOSIS: Differential diagnosis for the patient's hypotension includes but is not limited to: cardiac structural abnormality, hypocalcemia, or neurogenic shock. MEDICAL DECISION MAKIN-year-old male presents with episodic hypotension since being discharged home following cardiac ablation performed by Dr. Kirby on 06/15. He reports generalized weakness associated with hypotensive episodes. His BP was measured as low as 65/ 50 in the office today. Upon arrival, he is hypotensive at 82/52. HR at 76. His heart sounds normal on exam. Will proceed with labs, echocardiogram, and possible further evaluation for neurogenic shock given patient's chronic low back pain with sciatica. 1310: Repeat BP obtained at 92/56. Labs obtained and do not reveal underlying explanation for the patient's hypotension. We are awaiting echocardiogram results at this time. 1407: Repeat BP obtained at 94/57. 1450: On reevaluation, the patient is feeling much better and states that he wishes to go home. We are still awaiting echocardiogram interpretation. 3:00 p.m.: I had a long discussion with Dr. Claudette Irizarry. There is really no change on the echocardiogram and I cannot find any other reason for this patient 's transient but mild hypotension. His pressure is currently good at 110 over 70. He feels absolutely fine. He is accompanied here by his daughters. He would like to go home. In addition, he has an appointment set up in [address] Kirby and he will follow up sooner with Dr. Ramos or Dr. Kirby or the ER if any symptoms return. - Data Points Laboratory Results: Laboratory Results 07/19/16 12:55 07/19/16 12:55 07/19/16 07/19/16 12:55 12:55 WBC 7.59 10^3/uL 10^3/uL (3.80-9.50) RBC 4.82 10^6/uL 10^6/uL (4.40-6.38) Hgb 15.9 g/dL g/dL (13.7-17.5) Hct 44.2 % % (40.0-51.0) MCV 91.7 fL fL (81.5-99.8) MCH 33.0 pg pg (27.9-34.1) MCHC 36.0 g/dL g/dL (32.4-36.7) RDW 12.1 % % (11.5-15.2) Plt Count 282 10^3/uL 10^3/uL (150-400) MPV 8.7 fL fL (8.7-11.7) Neut % (Auto) 57.7 % % (39.3-74.2) Lymph % (Auto) 30.8 % % (15.0-45.0) Montague % (Auto) 8.2 % % (4.5-13.0) Eos % (Auto) 2.8 % % (0.6-7.6) Baso % (Auto) 0.1 % L % (0.3-1.7) Nucleat RBC Rel Count 0.0 % % (0.0-0.2) Absolute Neuts (auto) 4.38 10^3/uL 10^3/uL (1.70-6.50) Absolute Lymphs (auto) 2.34 10^3/uL 10^3/uL (1.00-3.00) Absolute Monos (auto) 0.62 10^3/uL 10^3/uL (0.30-0.80) Absolute Eos (auto) 0.21 10^3/uL 10^3/uL (0.03-0.40) Absolute Basos (auto) 0.01 10^3/uL L 10^3/uL (0.02-0.10) Absolute Nucleated RBC 0.00 10^3/uL 10^3/uL (0-0.01) Immature Gran % 0.4 % % (0.0-1.1) Immature Gran # 0.03 10^3/uL 10^3/uL (0.00-0.10) Sodium 133 mEq/L L mEq/L (134-144) Potassium 3.9 mEq/L mEq/L (3.5-5.2) Chloride 102 mEq/L mEq/L (97-110) Carbon Dioxide 22 mEq/l mEq/l (22-31) Anion Gap 9 mEq/L mEq/L (8-16) BUN 19 mg/dL mg/dL (7-23) Creatinine 1.0 mg/dL mg/dL (0.7-1.3) Estimated GFR > 60 Glucose 164 mg/dL H mg/dL (70-100) Calcium 9.6 mg/dL mg/dL (8.5-10.4) Magnesium 2.1 mg/dL mg/dL (1.6-2.3) Total Bilirubin 0.9 mg/dL mg/dL (0.1-1.4) Conjugated Bilirubin 0.5 mg/dL mg/dL (0.0-0.5) Unconjugated Bilirubin 0.4 mg/dL mg/dL (0.0-1.1) AST 51 IU/L IU/L (17-59) ALT 56 IU/L IU/L (21-72) Alkaline Phosphatase 82 IU/L IU/L (38-126) Troponin I < 0.012 ng/mL ng/mL (0-0.034) NT-Pro-B Natriuret Pep 3010 pg/mL H pg/mL (0-450) Total Protein 7.1 g/dL g/dL (6.3-8.2) Albumin 3.9 g/dL g/dL (3.5-5.0) Lipase 396.0 IU/L H IU/L (23-300) Departure - Departure Disposition: Home, Routine, Self-Care Clinical Impression: Generalized weakness Hypotension Qualifiers: Hypotension type: unspecified hypotension type Qualified Code(s): I95.9 - Hypotension, unspecified Condition: Good Instructions: Hypotension (ED) Additional Instructions: 1. Follow-up with your railcar carpenter as soon as possible this week. 2. Return to the Emergency Department immediately if you experience repeat episodes of low blood pressure, generalized weakness, lightheadedness, confusion , chest pain, or for other serious concerns. Referrals: Rosemary Ayala MD [Primary Care Provider] - As per Instructions Claudette Irizarry MD [Medical Doctor] - As per Instructions
[2016-07-19 13:03] LABS: % IMMATURE GRANULYOCYTES 0.4 % (0.0-1.1); ABSOLUTE IMMATURE GRANULOCYTES 0.03 10^3/uL (0.00-0.10); ADD DIFF? NO; ADD MORPH? NO; ADD SCAN? NO; ATYPICAL LYMPHOCYTE FLAG 0 (0-99); FRAGMENT RBC FLAG 0 (0-99); HEMATOCRIT 44.2 % (40.0-51.0); HEMOGLOBIN 15.9 g/dL (13.7-17.5); LEFT SHIFT FLG 0 (0-99); LIPEMIA HEMOLYSIS FLAG 90 (0-99); MEAN CELL VOLUME 91.7 fL (81.5-99.8); MEAN PLATELET VOLUME 8.7 fL (8.7-11.7); PLATELET CLUMPS FLAG 0 (0-99); PLATELET COUNT 282 10^3/uL (150-400); RED BLOOD CELL COUNT 4.82 10^6/uL (4.40-6.38); RED CELL DISTRIBUTION WIDTH 12.1 % (11.5-15.2)
[2016-07-19 13:10] VITALS: RESP 16; O2SAT 98
[2016-07-19 13:14] LABS: ALANINE AMINOTRANSFERASE 56 IU/L (21-72); ALBUMIN 3.9 g/dL (3.5-5.0); ALKALINE PHOSPHATASE 82 IU/L (38-126); ANION GAP 9 mEq/L (8-16); ASPARTATE AMINOTRANSFERASE 51 IU/L (17-59); BILIRUBIN,TOTAL 0.9 mg/dL (0.1-1.4); BILIRUBIN-CONJUGATED 0.5 mg/dL (0.0-0.5); BILIRUBIN-UNCONJUGATED 0.4 mg/dL (0.0-1.1); CALCIUM 9.6 mg/dL (8.5-10.4); CARBON DIOXIDE 22 mEq/l (22-31); CHLORIDE 102 mEq/L (97-110); GLOMERULAR FILTRATION RATE > 60; GLUCOSE 164 mg/dL (70-100); MAGNESIUM 2.1 mg/dL (1.6-2.3); POTASSIUM 3.9 mEq/L (3.5-5.2); SODIUM 133 mEq/L (134-144); TOTAL PROTEIN 7.1 g/dL (6.3-8.2)
[2016-07-19 13:26] LABS: TROPONIN I < 0.012 ng/mL (0-0.034)
--- NOTE | 2016-07-19 14:57 | ECHO ---
[id number] + + [address] : : [place] [address] : : [phone] + + Adult Echocardiographic Report + -------+ :Name: YUAN SWEENEY KStudy Date: 07/19/2016 01:06 PM BP: 98/53 mmH g : : Hospital Admission Number: [id number] Locat ion: ER: :: 1940 Gender: Male Height: 66 in : :Age: 76 yrs Race: WH,White Weight: 165 l b : :Reason For Study: low BP : : BSA: 1.8 mete rs2 : :History: PA, ablation : + -------+ MMode/2D Measurements \T\ Calculations IVSd: 1.0 cm LVIDd: 5.1 cm FS: 20.7 % Ao root diam: LVPWd: 0.98 cm LVIDs: 4.1 cm EDV(Teich): 4.0 cm 124.9 ml LA dimension: ESV(Teich): 3.0 cm 72.5 ml EF(Teich): 42.0 % LVLd ap4: 10.2 cm SV(MOD-sp4): EDV(MOD-sp4): 84.0 ml 205.0 ml LVLs ap4: 9.5 cm ESV(MOD-sp4): 121.0 ml EF(MOD-sp4): 41.0 % Normal Measurement Values: + + :LVIDd (3.5-5.7cm) IVSd (0.6-1.1cm) LVPWd (0.6-1.1cm) Aortic Root (2.0-3.7cm)Left Atrium (1.5-4.0cm): :LV Vol(d) (76-115ml) LV Vol(s) (29-48ml) Ejec Fraction (50-65%)PV Jerrod (0.6- 1.2m/s) TV Jerrod (0.4-1.0m/s) : :MV E Jerrod (0.8-1.0m/s)MV A Jerrod (0.3-1.0m/s)LVOT Jerrod (0.7-1.2m/s) Asc Ao Jerrod ( 0.9-1.8m/s) : + + Doppler Measurements \T\ Calculations MV E max jerrod: Ao V2 max: LV V1 max: PA V2 max: 65.0 cm/sec 115.0 cm/sec 71.4 cm/sec 77.2 cm/sec Ao max P.3 mmHgLV V1 max PG: PA max P.0 mmHg 2.4 mmHg PI end-d jerrod: TR max jerrod: 136.0 cm/sec 205.0 cm/sec TR max P.8 mmHg Left Ventricle The left ventricle is normal in size. Normal posterior wall thickness. Thin, bright and akinetic interventricular septum. Left ventricular systolic function is moderate to severely reduced. Ejection Fraction = 30-35%. 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 Right Ventricle The right ventricle is normal in size and function. There is a pacemaker lead in the right ventricle. Mobile echo density noted on or near the apical portion of the pacemaker lead; cannot rule out vegetation. Atria The left atrial size is normal. Right atrial size is normal. Mitral Valve The mitral valve is normal in structure and function. There is no mitral valve stenosis. There is trace mitral regurgitation. Tricuspid Valve The tricuspid valve is not well visualized. There is no tricuspid stenosis. There is mild tricuspid regurgitation. Right ventricular systolic pressure is 22mmHg. Aortic Valve The aortic valve is trileaflet. Mild aortic leaflet sclerosis. There is no aortic stenosis. Mild to moderate aortic regurgitation. There is an eccentric jet of aortic insufficiency directed against the anterior mitral leaflet. Pulmonic Valve The pulmonic valve is not well visualized. Moderate to severe pulmonic valvular regurgitation. Great Vessels The aortic root is normal size. Pericardium/Pleural There is no pericardial effusion. Conclusion A two-dimensional transthoracic echocardiogram with M-mode and Doppler was performed. Normal posterior wall thickness. Thin, bright and akinetic interventricular septum. Left ventricular systolic function is moderate to severely reduced. Ejection Fraction = 30-35%. 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 Mobile echo density noted on or near the apical portion of the pacemaker lead; cannot rule out vegetation. There is trace mitral regurgitation. There is mild tricuspid regurgitation. Right ventricular systolic pressure is 22mmHg. Mild aortic leaflet sclerosis. Mild to moderate aortic regurgitation. There is an eccentric jet of aortic insufficiency directed against the anterior mitral leaflet. Moderate to severe pulmonic valvular regurgitation. Overall similar findings to 06/16/2016 Final Reading Physician: Dr Claudette Irizarry electronically signed on 07/19/2016 02:56 PM Ordering Physician: Cody Luis Performed By: Zoila Raya
[2016-07-19 15:25] VITALS: BP 112/59; PULSE 71; TEMP 98.2
== END 2016-07-19 15:24 | disposition home or self-care (01) ==
DX: I95.9 Hypotension, unspecified (principal); R53.1 Weakness; E11.9 Type 2 diabetes mellitus without complications; I25.810 Atherosclerosis of coronary artery bypass graft(s) without angina pectoris; Z79.82 Long term (current) use of aspirin; Z87.891 Personal history of nicotine dependence
CPT/HCPCS: G0463-PO

== ENCOUNTER → 2016-07-21 | Outpatient (CLI) | payer OTHER, MEDICARE | LOC: BHFA 14:45 | PROVIDERS: ATTEND Internal Medicine Cardiovascular Disease | DX: I47.2 Ventricular tachycardia (principal); Z95.810 Presence of automatic (implantable) cardiac defibrillator; I25.5 Ischemic cardiomyopathy ==

== ENCOUNTER → 2016-08-09 | Outpatient (CLI) | payer OTHER, MEDICARE | LOC: BHFA 09:45 | PROVIDERS: ATTEND Internal Medicine Cardiovascular Disease | DX: I95.9 Hypotension, unspecified (principal); I50.22 Chronic systolic (congestive) heart failure ==

== ENCOUNTER 2016-08-12 07:07 | Day surgery (SDC) | payer OTHER, MEDICARE ==
[2016-08-12] MEDS ORDERED: COSYNTROPIN 0.25 MG/2 ML SYRINGE IVP ONE (09:00)
== END 2016-08-12 10:22 | disposition home or self-care (01) ==
LOC: FCATH 07:07
PROVIDERS: ATTEND Internal Medicine Cardiovascular Disease
DX: I95.9 Hypotension, unspecified (principal); I50.22 Chronic systolic (congestive) heart failure; I25.10 Atherosclerotic heart disease of native coronary artery without angina pectoris; Z95.810 Presence of automatic (implantable) cardiac defibrillator; E11.9 Type 2 diabetes mellitus without complications; I25.2 Old myocardial infarction; Z86.73 Personal history of transient ischemic attack (TIA), and cerebral infarction without residual deficits; Z88.2 Allergy status to sulfonamides
CPT/HCPCS: J0834

== ENCOUNTER → 2016-09-29 | Outpatient (CLI) | payer OTHER, MEDICARE | LOC: FIMAGING 14:04 | PROVIDERS: ATTEND Physician Assistant | DX: R05 Cough (principal) ==

== ENCOUNTER 2016-11-09 19:38 | Observation (INO) | payer OTHER, MEDICARE ==
[2016-11-09] MEDS ORDERED: ONDANSETRON 4 MG/2 ML VIAL IVP ONE (19:45)
[2016-11-09] MEDS ORDERED: NS 500 ML IV ONE (19:45)
--- NOTE | 2016-11-09 19:45 | EDPHY ---
H & P Time Seen by Provider: 11/09/16 19:38 HPI/ROS: CHIEF COMPLAINT: Vomiting Limitations: Difficult to obtain clinical history HISTORY OF PRESENT ILLNESS: This patient is an anticoagulated (Plavix) 76 year old male arriving via EMS from [facility] for evaluation of vomiting and altered mental status. He is usually quite talkative and he was sitting at the dinner table, when he fairly suddenly stopped talking and then had 1 episode of vomiting. He has had recurrent episodes of vomiting since then and is not back to his normal baseline mental status. There is a concern for head injury because he fell yesterday and possibly hit his head. EMS administered 4mg Zofran in transport. Vitals were stable, patient has pacemaker in place. Further HPI is difficult to obtain given these limitations. The patient nods to yes no questioning and denies headache, neck pain, abdominal pain, shortness of breath or chest pain. REVIEW OF SYSTEMS: A 10 point review of systems was limited due to patient presentation. - Medical/Surgical History PMH: 1. Congestive heart failure 2. Status post CABG 3. Pacemaker in place 4. Hypothyroid, 5. Neuropathy, 6. Chronic pain - Social History Additional Social History: Resident at [facility]. Lives in [place]. . - Physical Exam Exam: General Appearance: Eyes closed, responds to questions, appears drowsy Eyes: Pupils 3mm, equal and round, no conjunctival pallor or injection ENT, Mouth: Mucous membranes moist Neck: Normal inspection Respiratory: Lungs are clear to auscultation anteriorly. Cardiovascular: Regular rate and rhythm Gastrointestinal: Abdomen is soft and non-tender Neurological: A&O, nonfocal, management trainee program stores strength equal, able to raise both legs off the gurney Skin: Warm, diaphoretic Extremities: No obvious tenderness, no pedal edema Psychiatric: Flat affect Constitutional: Initial Vital Signs Temperature (C) 36.6 C 11/09/16 19:44 Heart Rate 79 11/09/16 19:44 Respiratory Rate 24 H 11/09/16 19:44 Blood Pressure 162/97 H 11/09/16 19:44 O2 Sat (%) 90 L 11/09/16 19:44 O2 Delivery Mode Nasal Cannula O2 (L/minute) 2 Allergies/Adverse Reactions: Sulfa (Sulfonamide Antibiotics) Allergy (Intermediate, Verified 07/19/16 12:31) Home Medications: Medication Instructions Recorded Ranitidine HCl [Ranitidine HCl 150 300 mg PO BID 04/18/11 mg] Aspirin [Aspirin 325 mg (*)] 325 mg PO DAILY 06/15/16 Cholecalciferol Vit D3 [Vitamin D3 2,000 units PO DAILY #0 each 07/06/16 2000 units tab (OTC)] Clopidogrel Bisulfate [Plavix (*)] 75 mg PO DAILY@1730 #30 tab 07/06/16 Cyanocobalamin [Vitamin B12 (*)] 1,000 mcg PO DAILY #0 tab 07/06/16 DULoxetine [Cymbalta 60 MG (*)] 60 mg PO DAILY #30 cap 07/06/16 Gabapentin [Neurontin 300 MG (*)] 300 mg PO BID@07,15 #60 cap 07/06/16 Gabapentin [Neurontin 300 MG (*)] 600 mg PO HS #30 cap 07/06/16 Rosuvastatin Calcium [Crestor 40mg 40 mg PO DAILY@17 #30 tab 07/06/16 (*)] Sotalol HCl [Betapace 80 MG (*)] 80 mg PO BID #60 tab 07/06/16 Acetaminophen [Tylenol ES 500 mg 1,000 mg PO Q6 11/09/16 (*)] Ascorbic Acid [Vitamin C 500 mg 1,000 mg PO DAILY 11/09/16 (*)] Clobetasol 0.05% [Temovate Topical 1 maynor TP DAILY PRN 11/09/16 Solution] DULoxetine [Cymbalta 30 MG (*)] 30 mg PO DAILY 11/09/16 Donepezil HCl [Aricept 5 MG (*)] 5 mg PO DAILY 11/09/16 Fesoterodine Fumarate [Toviaz (*)] 4 mg PO DAILY PRN 11/09/16 Levalbuterol Inhaler [Xopenex Hfa 1 puffs IH TID PRN 11/09/16 Inhaler (*)] Levothyroxine [Synthroid 88 mcg 88 mcg PO DAILY06 11/09/16 (*)] Mbx Soln;Maalox/Diphen/Lido 5 ml PO PRN PRN 11/09/16 [Maalox/Diphenhydramine/Lido] Nitroglycerin [Nitrostat 0.4 mg 0.4 mg SL Q5M PRN 11/09/16 (*)] [place]-3 Fatty Acids [Fish Oil 1000 1,000 mg PO BID 11/09/16 mg (*)] Tetrahydrozoline 0.05% [Visine (*)] 1 drop OP DAILY PRN 11/09/16 clonazePAM [CLONAZEPAM] 0.25 mg PO HS 11/09/16 lamoTRIgine [LamICTAL 100 MG (*)] 100 mg PO HS 11/09/16 traMADol [Ultram 50 mg (*)] 50 mg PO DAILY PRN 11/09/16 traMADol [Ultram 50 mg (*)] 50 mg PO TID 11/09/16 Medical Decision Making - Diagnostics EKG Interpretation: EKG interpreted by me reveals atrial paced rhythm, ventricular rate 72, LBB. Similar to prior EKG from 08/2016. Imaging Results: Head CT 11/09/16 19:44 Impression: 1. No acute intracranial hemorrhage or fracture. 2. Completely resolved subdural hematomas since June 2016. 3. Atrophy and white matter disease is unchanged. Findings discussed with Emergency Department physician, Sabina Benavides M.D., on November 09, 2016 at 2. Imaging: Discussed imaging studies w/ director call center sales Radiologist ED Course/Re-evaluation: 19:40 Received EMS report at bedside. Clinical scenario concerning for intracranial hemorrhage, given head injury yesterday on Plavix, now with altered mental status and vomiting. Stat CT scan of the brain ordered. Zofran 4 mg IV given for persistent vomiting. Old medical records reviewed: History of right subdural hematoma in Jun, 2016. 19:[address] Davis, radiologist. CT head negative for acute hemorrhage. 8:20 p.m.-CT scan results discussed with the patient. He nods to yes no questioning and tells me that he does not pain and feels better overall. However, this patient is usually quite interactive and talkative. Unclear why his mental status has changed significantly. There is no evidence of intracranial hemorrhage, electrolyte abnormality or hypoglycemia. In addition he is afebrile and there is no clinical evidence for a bacterial infection or serious intra-abdominal process. He clearly will need to be admitted for observation and further evaluation. 20:[address] Boone, hospitalist. He accepts admission. Differential Diagnosis: Differential diagnosis includes though it is not limited to intracranial hemorrhage, pneumonia, hypoglycemia, hyponatremia, appendicitis, cholecystitis, diverticulitis, pyelonephritis, bowel perforation, small bowel obstruction. - Data Points Laboratory Results: Laboratory Results 11/09/16 19:43 11/09/16 19:43 Medications Given: Discontinued Medications Ascorbic Acid (Vitamin C) 1,000 mg PO DAILY VAN Stop: 05/09/17 08:59 Last Admin: 11/10/16 09:56 Dose: 1,000 mg Aspirin (Aspirin) 325 mg PO DAILY VAN Stop: 05/09/17 08:59 Last Admin: 11/10/16 09:52 Dose: 325 mg Cholecalciferol (Vitamin D) 2,000 units PO DAILY VAN Stop: 05/09/17 08:59 Last Admin: 11/10/16 09:55 Dose: 2,000 units Clonazepam (Klonopin) 0.25 mg PO HS VAN Stop: 05/08/17 22:29 Last Admin: 11/10/16 00:42 Dose: Not Given Donepezil HCl (Aricept) 5 mg PO DAILY VAN Stop: 05/09/17 08:59 Last Admin: 11/10/16 09:57 Dose: 5 mg Duloxetine HCl (Cymbalta) 30 mg PO DAILY VAN Stop: 05/09/17 08:59 Last Admin: 11/10/16 09:56 Dose: 30 mg Duloxetine HCl (Cymbalta) 60 mg PO DAILY VAN Stop: 05/09/17 08:59 Last Admin: 11/10/16 09:56 Dose: 60 mg Famotidine (Pepcid) 20 mg PO BID VAN Stop: 05/09/17 08:59 Last Admin: 11/10/16 09:52 Dose: 20 mg Gabapentin (Neurontin) 300 mg PO BID@07,15 VAN Stop: 05/09/17 06:59 Last Admin: 11/10/16 06:18 Dose: 300 mg Gabapentin (Neurontin) 600 mg PO HS VAN Stop: 05/08/17 22:29 Last Admin: 11/10/16 00:42 Dose: Not Given Sodium Chloride (Ns) 500 mls @ 0 mls/hr IV EDNOW ONE; Wide Open PRN Reason: Protocol Stop: 11/09/16 19:46 Last Admin: 11/09/16 19:52 Dose: 500 mls Sodium Chloride (Ns) 1,000 mls @ 125 mls/hr IV CONT VAN Stop: 11/10/16 05:29 Last Admin: 11/10/16 00:18 Dose: 1,000 mls Lamotrigine (Lamictal) 100 mg PO HS VAN Stop: 05/08/17 22:14 Last Admin: 11/10/16 01:12 Dose: Not Given Levothyroxine Sodium (Synthroid) 88 mcg PO DAILY06 VAN Stop: 05/09/17 05:59 Last Admin: 11/10/16 06:18 Dose: 88 mcg Chqaa-2-Lhiy Ethyl Esters (Fish Oil) 1,000 mg PO BID VAN Stop: 05/09/17 08:59 Last Admin: 11/10/16 09:51 Dose: 1,000 mg Ondansetron HCl (Zofran) 4 mg IVP EDNOW ONE Stop: 11/09/16 19:46 Last Admin: 11/09/16 19:53 Dose: 4 mg Sotalol HCl (Betapace) 80 mg PO BID VAN Stop: 05/08/17 22:14 Last Admin: 11/10/16 09:57 Dose: 80 mg Tramadol HCl (Ultram) 50 mg PO TID VAN Stop: 05/08/17 21:59 Last Admin: 11/10/16 09:52 Dose: Not Given Vitamin B Complex (Vitamin B12) 1,000 mcg PO DAILY VAN Stop: 05/09/17 08:59 Last Admin: 11/10/16 09:57 Dose: 1,000 mcg Departure - Departure Disposition: [facility] In[facility] Acute Clinical Impression: Vomiting Qualifiers: Vomiting type: unspecified Vomiting Intractability: non-intractable Nausea presence: with nausea Qualified Code(s): R11.2 - Nausea with vomiting, unspecified Condition: Fair Report Scribed for: Sabina Benavides Report Scribed by: Avelina Falcon Date of Report: 11/09/16 Time of Report: 19:45 Physician Review and Approval Statement: 11/09/16 19:45 Portions of this note were transcribed by a director of medical education. I personally performed a history, physical exam, medical decision making, and confirmed accuracy of information the transcribed note.
--- NOTE | 2016-11-09 19:56 | CPEKG ---
Heart Rate: 72 RR Interval: 833 P-R Interval: 268 QRSD Interval: 148 QT Interval: 460 QTC Interval: 504 QRS Ace: -80 T Wave Ace: 116 EKG Severity - ABNORMAL ECG - EKG Impression: ATRIAL-PACED RHYTHM EKG Impression: LEFT BUNDLE BRANCH BLOCK Electronically Signed By: Sabina Benavides 09-Nov-2016 21:13:06
[2016-11-09 20:02] LABS: % IMMATURE GRANULYOCYTES 0.4 % (0.0-1.1); ABSOLUTE IMMATURE GRANULOCYTES 0.04 10^3/uL (0.00-0.10); ADD DIFF? NO; ADD MORPH? NO; ADD SCAN? NO; ATYPICAL LYMPHOCYTE FLAG 0 (0-99); FRAGMENT RBC FLAG 0 (0-99); HEMATOCRIT 47.5 % (40.0-51.0); HEMOGLOBIN 16.8 g/dL (13.7-17.5); LEFT SHIFT FLG 0 (0-99); LIPEMIA HEMOLYSIS FLAG 90 (0-99); MEAN CELL HEMOGLOBIN 31.9 pg (27.9-34.1); MEAN CELL HEMOGLOBIN CONCENTR. 35.4 g/dL (32.4-36.7); MEAN CELL VOLUME 90.3 fL (81.5-99.8); MEAN PLATELET VOLUME 9.2 fL (8.7-11.7); PLATELET CLUMPS FLAG 0 (0-99); PLATELET COUNT 260 10^3/uL (150-400); RED BLOOD CELL COUNT 5.26 10^6/uL (4.40-6.38); RED CELL DISTRIBUTION WIDTH 12.2 % (11.5-15.2)
[2016-11-09 20:10] LABS: INR 1.06 (0.83-1.16); PROTIME(PATIENT) 13.7 SEC (12.0-15.0)
[2016-11-09 20:11] LABS: ANION GAP 9 mEq/L (8-16); APTT 29.4 SEC (23.0-38.0); CALCIUM 10.4 mg/dL (8.5-10.4); CARBON DIOXIDE 27 mEq/l (22-31); CHLORIDE 99 mEq/L (97-110); GLOMERULAR FILTRATION RATE > 60; GLUCOSE 132 mg/dL (70-100); SODIUM 135 mEq/L (134-144)
[2016-11-09 20:22] LABS: TROPONIN I < 0.012 ng/mL (0.000-0.034)
[2016-11-09] MEDS ORDERED: ONDANSETRON 4 MG/2 ML VIAL IVP PRN (21:18)
[2016-11-09] MEDS ORDERED: ONDANSETRON DISINTEGRATING 4 MG TAB PO PRN (21:18)
[2016-11-09] MEDS ORDERED: ACETAMINOPHEN 325 MG TAB PO PRN (21:18)
[2016-11-09] MEDS ORDERED: TETRAHYDROZOLINE 0.05% 15 ML OPHT.BTL OP PRN (21:26)
[2016-11-09] MEDS ORDERED: traMADol 50 MG TAB PO PRN (21:26)
[2016-11-09] MEDS ORDERED: MBX SOLN 30 ML BOTTLE PO PRN (21:26)
[2016-11-09] MEDS ORDERED: CLOBETASOL 0.05% 25 ML TOPICAL SOLUTION TP PRN (21:26)
[2016-11-09] MEDS ORDERED: FESOTERODINE FUMARATE 4 MG TAB.ER PO PRN (21:26)
[2016-11-09] MEDS ORDERED: LEVALBUTEROL INHALER 200 PUFFS/15 GM MDI IH PRN (21:26)
[2016-11-09] MEDS ORDERED: NS 1,000 ML IV SCH (21:30)
--- NOTE | 2016-11-09 22:06 | GHP ---
[f rep st] HISTORY AND PHYSICAL DATE OF ADMISSION: 11/09/2016 HISTORY OF PRESENT ILLNESS: The patient is a pleasant 76-year-old gentleman with a history of ventri cular tachycardia with ablation, subdural hematoma in June of this year, who presents with vomiting. He was in his usual state of health, but he lives at [facility]. He has been struggling with his g ait a little bit. He went to dinner. He felt okay dinner. He had 1 beer prior to dinner, which is not that typical for him. He did not feel intoxicated. He suddenly after that was quiet, and then h e developed nausea and vomiting. When I speak to the patient, his eyes are closed. He denies dizzin ess or vertigo-like symptoms. He is not having diarrhea. He is not having fever, chills, or abdomin al pain. He is asking if he can go home, but he is feels kind of weak. He is not having chest pain or chest symptoms. REVIEW OF SYSTEMS: Complete 10-point review of systems conducted and negative except as noted in the HPI. 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 ALLERGIES: Sulfa. MEDICATIONS: Tylenol, nitroglycerin, ascorbic acid, aspirin, vitamin D3, clobetasol, clonazepam, deysi pidogrel, B12, donepezil, duloxetine, fesoterodine, gabapentin, levothyroxine, albuterol, levothyroxi ne, Magic mouthwash, fish oil, ranitidine, rosuvastatin, sotalol, Visine, and tramadol. SOCIAL HISTORY: Occasional alcohol. No tobacco. 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 Lives at [facility] . FAMILY HISTORY: Parents . PHYSICAL EXAMINATION: VITAL SIGNS: Temp 36.8, blood pressure 101/58, pulse 69, breathing 18 times a minute, 96% on room air. GENERAL: No acute distress. Eyes closed, but easily arousable. HEENT: Sclerae anicteric. Oropharynx clear. Mucous membranes are moist. NECK: Supple without lymphadenop athy or JVD. LUNGS: Clear to auscultation bilaterally. HEART: S1, S2. His AICD is pocket is breana n, dry, intact without fluctuance or warmth. ABDOMEN: Soft, nontender, nondistended. Bowel sounds are present. LOWER EXTREMITIES: No edema. Calves nontender. Skin without rash. NEUROLOGIC: Nonfo lindsey. LABORATORY DATA: White count 9, hematocrit 47, platelets are 260,000. INR is 1, sodium 135, potassi um 4.0, chloride 99, bicarb 27, BUN 13, creatinine 1.0, glucose 134, troponin less than 0.012. Noncontrast head CT shows complete resolution of prior subdural hematoma. No acute intracranial hemo rrhage. EKG shows atrial paced rhythm with left bundle branch block pattern. He does have some ST e levations that are not entirely concave. EKG similar morphology to prior EKGs. I discussed the case with Dr. Savanna Benavides. ASSESSMENT/PLAN: This is a 76-year-old gentleman with coronary artery disease and history of ventric ular tachycardia, developed vomiting. 1. Vomiting. I suspect this is food or food poisoning related. The patient does not have diarrhea to suggest a viral illness. We will follow. Perhaps he will develop diarrhea. He has a nontender a bdominal exam. I do not suspect intraabdominal catastrophe. He is not tachycardic. We will follow. His EKG is nonischemic. We will repeat a troponin in the morning. I think we can hold off on inte rrogating his AICD. 2. Generalized weakness. We will have PT and OT see him. It sounds like this has been going on for a bit of time. 3. History of ventricular tachycardia. We will continue his sotalol. 4. Coronary artery disease. Continue his aspirin. 5. Disposition: Observation status. /[id number]/MODL
[2016-11-09] MEDS ORDERED: lamoTRIgine 100 MG TAB PO SCH (22:15)
[2016-11-09] MEDS ORDERED: GABAPENTIN 300 MG CAP PO SCH (22:30)
[2016-11-09] MEDS ORDERED: clonazePAM 0.5 MG TAB PO SCH (22:30)
[2016-11-10] MEDS: SOTALOL HCL 80 MG TAB PO SCH ×2 (00:19→09:57)
[2016-11-10] MEDS: traMADol 50 MG TAB PO SCH ×2 (00:43→09:52)
[2016-11-10 04:24] LABS: COLOR YELLOW; LEUKOCYTE ESTERASE,URINE NEGATIVE (NEGATIVE); NITRITE,URINE NEGATIVE (NEGATIVE)
[2016-11-10 05:37] LABS: % IMMATURE GRANULYOCYTES 0.5 % (0.0-1.1); ABSOLUTE IMMATURE GRANULOCYTES 0.04 10^3/uL (0.00-0.10); ADD DIFF? NO; ADD MORPH? NO; ADD SCAN? NO; ATYPICAL LYMPHOCYTE FLAG 0 (0-99); FRAGMENT RBC FLAG 0 (0-99); HEMATOCRIT 44.4 % (40.0-51.0); HEMOGLOBIN 15.1 g/dL (13.7-17.5); LEFT SHIFT FLG 0 (0-99); LIPEMIA HEMOLYSIS FLAG 90 (0-99); MEAN CELL HEMOGLOBIN 31.3 pg (27.9-34.1); MEAN CELL VOLUME 91.9 fL (81.5-99.8); MEAN PLATELET VOLUME 9.4 fL (8.7-11.7); PLATELET CLUMPS FLAG 0 (0-99); PLATELET COUNT 218 10^3/uL (150-400); RED BLOOD CELL COUNT 4.83 10^6/uL (4.40-6.38); RED CELL DISTRIBUTION WIDTH 12.2 % (11.5-15.2)
[2016-11-10 05:55] LABS: ANION GAP 11 mEq/L (8-16); CALCIUM 9.4 mg/dL (8.5-10.4); CARBON DIOXIDE 21 mEq/l (22-31); CHLORIDE 107 mEq/L (97-110); CREATININE 0.8 mg/dL (0.7-1.3); GLOMERULAR FILTRATION RATE > 60; GLUCOSE 99 mg/dL (70-100); POTASSIUM 4.5 mEq/L (3.5-5.2); SODIUM 139 mEq/L (134-144)
[2016-11-10] MEDS ORDERED: LEVOTHYROXINE 88 MCG TAB PO SCH (06:00)
[2016-11-10 06:04] LABS: TROPONIN I < 0.012 ng/mL (0.000-0.034)
[2016-11-10] MEDS ORDERED: GABAPENTIN 300 MG CAP PO SCH (07:00)
[2016-11-10] MEDS ORDERED: OMEGA-3 FATTY ACIDS 1,000 MG CAP PO SCH (09:00)
[2016-11-10] MEDS ORDERED: FAMOTIDINE 20 MG TAB PO SCH (09:00)
[2016-11-10] MEDS ORDERED: DULoxetine 30 MG CAP PO SCH (09:00)
[2016-11-10] MEDS ORDERED: CYANO/VITAMIN B12 1000 MCG TAB PO SCH (09:00)
[2016-11-10] MEDS ORDERED: ASCORBIC ACID 500 MG TAB PO SCH (09:00)
[2016-11-10] MEDS ORDERED: DULoxetine 60 MG CAP PO SCH (09:00)
[2016-11-10] MEDS ORDERED: CHOLECALCIFEROL VIT D3 2,000 UNITS TAB/CAP PO SCH (09:00)
[2016-11-10] MEDS ORDERED: ASPIRIN 325 MG TAB PO SCH (09:00)
[2016-11-10] MEDS ORDERED: DONEPEZIL HCL 5 MG TAB PO SCH (09:00)
--- NOTE | 2016-11-10 11:20 | PDIAF ---
- Diagnosis Diagnosis: gastroenteritis Code Status: Full Code - Medication Management Discharge Medications: Medications to Continue on Transfer Ranitidine HCl [Ranitidine HCl 150 mg] 300 mg PO BID 04/18/11 [Last Taken 08:00] Aspirin [Aspirin 325 mg (*)] 325 mg PO DAILY 06/15/16 [Last Taken 06/20/16] Cholecalciferol Vit D3 [Vitamin D3 2000 units tab (OTC)] 2,000 units PO DAILY # 0 each 07/06/16 [Last Taken Unknown] Clopidogrel Bisulfate [Plavix (*)] 75 mg PO DAILY@1730 #30 tab 07/06/16 [Last Taken Unknown] Cyanocobalamin [Vitamin B12 (*)] 1,000 mcg PO DAILY #0 tab 07/06/16 [Last Taken Unknown] DULoxetine [Cymbalta 60 MG (*)] 60 mg PO DAILY #30 cap 07/06/16 [Last Taken Unknown] Gabapentin [Neurontin 300 MG (*)] 300 mg PO BID@,15 #60 cap 07/06/16 [Last Taken Unknown] Gabapentin [Neurontin 300 MG (*)] 600 mg PO HS #30 cap 07/06/16 [Last Taken Unknown] Rosuvastatin Calcium [Crestor 40mg (*)] 40 mg PO DAILY@17 #30 tab 07/06/16 [ Last Taken Unknown] Sotalol HCl [Betapace 80 MG (*)] 80 mg PO BID #60 tab 07/06/16 [Last Taken Unknown] Acetaminophen [Tylenol ES 500 mg (*)] 1,000 mg PO Q6 11/09/16 [Last Taken Unknown] Ascorbic Acid [Vitamin C 500 mg (*)] 1,000 mg PO DAILY 11/09/16 [Last Taken Unknown] Clobetasol 0.05% [Temovate Topical Solution] 1 maynor TP DAILY PRN 11/09/16 [Last Taken Unknown] DULoxetine [Cymbalta 30 MG (*)] 30 mg PO DAILY 11/09/16 [Last Taken Unknown] Donepezil HCl [Aricept 5 MG (*)] 5 mg PO DAILY 11/09/16 [Last Taken Unknown] Fesoterodine Fumarate [Toviaz (*)] 4 mg PO DAILY PRN 11/09/16 [Last Taken Unknown] Levalbuterol Inhaler [Xopenex Hfa Inhaler (*)] 1 puffs IH TID PRN 11/09/16 [ Last Taken Unknown] Levothyroxine [Synthroid 88 mcg (*)] 88 mcg PO DAILY06 11/09/16 [Last Taken Unknown] Mbx Soln;Maalox/Diphen/Lido [Maalox/Diphenhydramine/Lido] 5 ml PO PRN PRN [Last Taken Unknown] Nitroglycerin [Nitrostat 0.4 mg (*)] 0.4 mg SL Q5M PRN 11/09/16 [Last Taken Unknown] [place]-3 Fatty Acids [Fish Oil 1000 mg (*)] 1,000 mg PO BID 11/09/16 [Last Taken Unknown] Tetrahydrozoline 0.05% [Visine (*)] 1 drop OP DAILY PRN 11/09/16 [Last Taken Unknown] clonazePAM [CLONAZEPAM] 0.25 mg PO HS 11/09/16 [Last Taken Unknown] lamoTRIgine [LamICTAL 100 MG (*)] 100 mg PO HS 11/09/16 [Last Taken Unknown] traMADol [Ultram 50 mg (*)] 50 mg PO DAILY PRN 11/09/16 [Last Taken Unknown] traMADol [Ultram 50 mg (*)] 50 mg PO TID 11/09/16 [Last Taken Unknown] Discharge Medications: Refer to the Discharge Home Medication list for PRN reason. - Orders Services needed: Home Care, Registered Nurse, Physical Therapy, Occupational Therapy Home Care Face to Face: I certify that this patient was under my care and that I had the required [id number] encounter meeting the encounter requirements on the discharge day. My findings support the fact that the patient is homebound as defined in Home Care Face to Face Continued: CMS Chapter 7 Medicare Benefits Manual 30.1.1 , The condition of the patient is such that there exists a normal inability to leave home and consequently, leaving home would require a considerable and taxing effort. Diet Recommendation: no restrictions on diet - Follow Up Care Current Providers and Referrals: Rosemary Ayala MD [Primary Care Provider] - As per Instructions
[2016-11-10 11:28] VITALS: BP 102/60; PULSE 72; RESP 16; TEMP 98; O2SAT 92
[2016-11-10] MEDS ORDERED: ROSUVASTATIN CALCIUM 40 MG TAB PO SCH (17:00)
[2016-11-10] MEDS ORDERED: CLOPIDOGREL BISULFATE 75 MG TAB PO SCH (17:30)
--- NOTE | 2016-11-11 00:52 | GDS ---
[f rep st] DISCHARGE SUMMARY DISCHARGE DIAGNOSES: 1. Gastroenteritis. 2. Ventricular tachycardia, status post AICD and ablation. 3. Coronary artery disease with ischemic cardiomyopathy. 4. History of obstructive sleep apnea. 5. Diabetes type 2. HISTORY: The patient is a 76-year-old male who went out for dinner last night to a restaurant and smith d the fish. Shortly after eating, he developed transient profuse nausea and vomiting, and he was adm itted to the hospital. He was observed overnight and rapidly improved, and this morning was quite hu ngry and eating a regular diet. All of his labs and vital signs were normal. Head CT was negative. Given the rapid resolution of symptoms, it is highly suspicious for a gastroenteritis and possible f ood poisoning. Patient did state the fish seemed like it might not be good. He was discharged witho ut any changes to his previous medical regimen. DISCHARGE MEDICATIONS: Please see computer record for full detailed list. There are no new medicati ons given at time of hospital. ADDITIONAL DISCHARGE INSTRUCTIONS: Follow up with primary care as needed. Patient was seen and examined by me on the day of discharge. /[id number]/MODL
--- NOTE | 2016-11-11 08:43 | ASDISCHSUM ---
Discharge Information Plan Status:Assisted Living Medically Cleared to Leave:11/10/2016 Discharge Date:11/10/2016 12:15 PM D/C Disposition:Home Health Service ADT D/C Disposition:Home Health Service Projected Discharge Date:11/10/2016 11:00 AM Transportation at D/C: Discharge Delay Reason: Follow-Up Date:11/10/2016 11:00 AM Discharge Slot: Final Diagnosis: Placement Information Referral Type:*Home Health Care Services Referral ID:[id number] Provider Name:[facility] Address 1:[address] [address] Address 2: City:[place] Selection Factors: State:[place] Referral Type:Assisted Living Residence Referral ID:[id number] Provider Name:Davey allison Fraser Address 1:[address] Phone Number: Address 2: Fax Number: City:[place] Selection Factors: State:[place] Patient Contact Information Contact Name:KYLEIGH Relationship:Daughter Address:[address] City:[place] Alternate Phone: State/Zip Code:[place] [address] Email: Financial Information Financial Class: Primary Plan Desc:MEDICARE OUTPATIENT Primary Plan Number:[id number] Secondary Plan Desc:MIRNA/JOIE SUPPLEMENT Secondary Plan Number:[id number] Assessment Information Intervention Information
== END 2016-11-10 12:15 | disposition home health service (06) ==
LOC: EDUNIT# → F2W 22:09
PROVIDERS: ADMIT Internal Medicine; ATTEND Internal Medicine
DX: T62.91XA Toxic effect of unspecified noxious substance eaten as food, accidental (unintentional), initial encounter (principal); K52.9 Noninfective gastroenteritis and colitis, unspecified; I47.2 Ventricular tachycardia; I25.5 Ischemic cardiomyopathy; I25.10 Atherosclerotic heart disease of native coronary artery without angina pectoris; E11.40 Type 2 diabetes mellitus with diabetic neuropathy, unspecified; F03.90 Unspecified dementia, unspecified severity, without behavioral disturbance, psychotic disturbance, mood disturbance, and anxiety; E78.5 Hyperlipidemia, unspecified; Z95.810 Presence of automatic (implantable) cardiac defibrillator; Z91.81 History of falling
CPT/HCPCS: 70450; 93005; 97161; 97165; G8978; G8979; G8980; G8987; G8988; J2405

== ENCOUNTER 2016-11-18 09:06 | Emergency (ER) | payer OTHER, MEDICARE ==
--- NOTE | 2016-11-18 09:14 | EDPHY ---
HPI/HX/ROS/PE/MDM Narrative: CHIEF COMPLAINT: Weakness HPI: The patient is a 76 y/o male arriving via EMS complaining of generalized waxing and waning weakness for the last few days. He has a history that includes MO, pacemaker, hypertension, and subdural hematoma in June of this year. Yesterday while walking he developed dizziness and couldn't stand without needing to catch himself. This morning he was walking his dog and had significant difficulty walking and standing. He has associated diplopia, but reports he's had this in the past. EMS states he was unable to stand unassisted. The patient denies any trauma, confusion, speech difficulty, or unilateral weakness or paresthesias. REVIEW OF SYSTEMS: Aside from elements discussed in the HPI, a comprehensive 10-point review of systems was reviewed and is negative. PMH: Ventricular tachycardia status post AICD pacemaker and ablation, MO at age 34, hepatitis C, ischemic cardiomyopathy, neuropathy, hypertension, hyperlipidemia, subdural hematoma June 2016, sleep apnea, diabetes type 2, psoriasis, dementia, BPH Prior medical records reviewed including admission 11/09/16 for vomiting. SOCIAL HISTORY: Lives at the [facility], PCP: Dr. Ayala, paperwork from [facility] says he has a comScore form, but this was not transferred with the patient. PHYSICAL EXAM: General:Patient is alert, in no acute distress. ENT:Eyes are normal to inspection. ENT inspection normal. Neck: Normal inspection. Full range of motion. Respiratory:No respiratory distress. Breath sounds normal bilaterally. Cardiovascular: Regular rate and rhythm. Strong peripheral pulses. Normal cap refill. Abdomen:The abdomen is nontender to palpation. There are no peritoneal signs. There are normal bowel sounds. Back: Normal to inspection. No tenderness to palpation. Skin: Normal color. No rash. Warm and dry. Extremities: Normal appearance. Full range of motion. Neuro: Oriented x3. Normal motor function. Normal sensory function. Normal [id number]. No pronator drift. Face is symmetric. ED Course: This is a 76 y/o male with a history of a subdural hematoma 5 months ago who presents with generalized weakness and difficulty walking for the last few days. He was too weak this morning to stand without assistance. His neuro exam is unremarkable. Plan for IV, labs, EKG, head CT, and chest x-ray. The 12 lead EKG was interpreted by myself. See hard copy and/or "tracemaster" electronic copy for interpretation. Head CT: negative for acute changes from prior CT. Chest x-ray: nothing acute. Patient has been able to walk unassisted without issue here. I've offered admission, but he declines and plans to follow up as an outpatient with his PCP and engagement executive. Fall prevention discussed. Strict return precautions given. He is comfortable with this plan. MDM: This patient presents with generalized weakness, gait instability and multiple falls. His workup, including CTH, is negative. Given history of some diplopia and ataxia, I would like to perform an MRI, but patient unfortunately has a pacemaker. I think it would be important to interrogate his pacer, but patient declines further workup or admission to the hospital. He appears to be a competent decision maker and understands risks of refusal. His family is in the room with him during this conversation. I encouraged him to return for any further issues. - Data Points Imaging Results: Imaging Impressions Chest X-Ray 11/18/16 09:15 Impression: 1. Bronchitis/airways disease without definite focal pneumonia. 2. AICD pacemaker without pneumothorax. Head CT 11/18/16 09:59 Impression: Senescent features, with no acute intracranial abnormality identified on this unenhanced CT evaluation, or significant interval change since 11/09/2016. If there is further clinical concern regarding the patient's symptoms, MR imaging is suggested, if not otherwise contraindicated. Findings were discussed with Adrienne, the medical social consultant for Ion Perry MD at 10:31 AM, on 11/18/2016. Imaging: Discussed imaging studies w/ court attendant Radiologist, I viewed and interpreted images myself Laboratory Results: Laboratory Results 11/18/16 09:00 11/18/16 09:00 11/18/16 11/18/16 09:00 09:00 WBC 5.87 10^3/uL 10^3/uL (3.80-9.50) RBC 4.96 10^6/uL 10^6/uL (4.40-6.38) Hgb 15.9 g/dL g/dL (13.7-17.5) Hct 44.3 % % (40.0-51.0) MCV 89.3 fL fL (81.5-99.8) MCH 32.1 pg pg (27.9-34.1) MCHC 35.9 g/dL g/dL (32.4-36.7) RDW 12.6 % % (11.5-15.2) Plt Count 243 10^3/uL 10^3/uL (150-400) MPV 8.9 fL fL (8.7-11.7) Neut % (Auto) 53.9 % % (39.3-74.2) Lymph % (Auto) 31.9 % % (15.0-45.0) [place] % (Auto) 9.2 % % (4.5-13.0) Eos % (Auto) 4.4 % % (0.6-7.6) Baso % (Auto) 0.3 % % (0.3-1.7) Nucleat RBC Rel Count 0.0 % % (0.0-0.2) Absolute Neuts (auto) 3.16 10^3/uL 10^3/uL (1.70-6.50) Absolute Lymphs (auto) 1.87 10^3/uL 10^3/uL (1.00-3.00) Absolute Monos (auto) 0.54 10^3/uL 10^3/uL (0.30-0.80) Absolute Eos (auto) 0.26 10^3/uL 10^3/uL (0.03-0.40) Absolute Basos (auto) 0.02 10^3/uL 10^3/uL (0.02-0.10) Absolute Nucleated RBC 0.00 10^3/uL 10^3/uL (0-0.01) Immature Gran % 0.3 % % (0.0-1.1) Immature Gran # 0.02 10^3/uL 10^3/uL (0.00-0.10) Sodium 136 mEq/L mEq/L (134-144) Potassium 4.0 mEq/L mEq/L (3.5-5.2) Chloride 101 mEq/L mEq/L (97-110) Carbon Dioxide 25 mEq/l mEq/l (22-31) Anion Gap 10 mEq/L mEq/L (8-16) BUN 14 mg/dL mg/dL (7-23) Creatinine 0.9 mg/dL mg/dL (0.7-1.3) Estimated GFR > 60 Glucose 136 mg/dL H mg/dL (70-100) Calcium 9.5 mg/dL mg/dL (8.5-10.4) Total Bilirubin 0.8 mg/dL mg/dL (0.1-1.4) Conjugated Bilirubin 0.3 mg/dL mg/dL (0.0-0.5) Unconjugated Bilirubin 0.5 mg/dL mg/dL (0.0-1.1) AST 78 IU/L H IU/L (17-59) ALT 69 IU/L IU/L (21-72) Alkaline Phosphatase 80 IU/L IU/L (38-126) Troponin I 0.013 ng/mL ng/mL (0.000-0.034) Total Protein 7.4 g/dL g/dL (6.3-8.2) Albumin 3.9 g/dL g/dL (3.5-5.0) General Initial Vital Signs: Initial Vital Signs Temperature (C) 37.0 C 11/18/16 09:13 Heart Rate 77 11/18/16 09:13 Respiratory Rate 18 11/18/16 09:13 Blood Pressure 113/59 L 11/18/16 09:13 O2 Sat (%) 92 11/18/16 09:13 O2 Delivery Mode Room Air Allergies/Adverse Reactions: Sulfa (Sulfonamide Antibiotics) Allergy (Intermediate, Verified 07/19/16 12:31) Home Medications: Medication Instructions Recorded Ranitidine HCl [Ranitidine HCl 150 300 mg PO BID 04/18/11 mg] Aspirin [Aspirin 325 mg (*)] 325 mg PO DAILY 06/15/16 Cholecalciferol Vit D3 [Vitamin D3 2,000 units PO DAILY #0 each 07/06/16 2000 units tab (OTC)] Clopidogrel Bisulfate [Plavix (*)] 75 mg PO DAILY@1730 #30 tab 07/06/16 Cyanocobalamin [Vitamin B12 (*)] 1,000 mcg PO DAILY #0 tab 07/06/16 DULoxetine [Cymbalta 60 MG (*)] 60 mg PO DAILY #30 cap 07/06/16 Gabapentin [Neurontin 300 MG (*)] 300 mg PO BID@,15 #60 cap 07/06/16 Gabapentin [Neurontin 300 MG (*)] 600 mg PO HS #30 cap 07/06/16 Rosuvastatin Calcium [Crestor 40mg 40 mg PO DAILY@17 #30 tab 07/06/16 (*)] Sotalol HCl [Betapace 80 MG (*)] 80 mg PO BID #60 tab 07/06/16 Acetaminophen [Tylenol ES 500 mg 1,000 mg PO Q6 11/09/16 (*)] Ascorbic Acid [Vitamin C 500 mg 1,000 mg PO DAILY 11/09/16 (*)] Clobetasol 0.05% [Temovate Topical 1 maynor TP DAILY PRN 11/09/16 Solution] DULoxetine [Cymbalta 30 MG (*)] 30 mg PO DAILY 11/09/16 Donepezil HCl [Aricept 5 MG (*)] 5 mg PO DAILY 11/09/16 Fesoterodine Fumarate [Toviaz (*)] 4 mg PO DAILY PRN 11/09/16 Levalbuterol Inhaler [Xopenex Hfa 1 puffs IH TID PRN 11/09/16 Inhaler (*)] Levothyroxine [Synthroid 88 mcg 88 mcg PO DAILY06 11/09/16 (*)] Mbx Soln;Maalox/Diphen/Lido 5 ml PO PRN PRN 11/09/16 [Maalox/Diphenhydramine/Lido] Nitroglycerin [Nitrostat 0.4 mg 0.4 mg SL Q5M PRN 11/09/16 (*)] [place]-3 Fatty Acids [Fish Oil 1000 1,000 mg PO BID 11/09/16 mg (*)] Tetrahydrozoline 0.05% [Visine (*)] 1 drop OP DAILY PRN 11/09/16 clonazePAM [CLONAZEPAM] 0.25 mg PO HS 11/09/16 lamoTRIgine [LamICTAL 100 MG (*)] 100 mg PO HS 11/09/16 traMADol [Ultram 50 mg (*)] 50 mg PO DAILY PRN 11/09/16 traMADol [Ultram 50 mg (*)] 50 mg PO TID 11/09/16 Departure - Departure Disposition: Home, Routine, Self-Care Clinical Impression: Weakness, Dizziness Condition: Good Instructions: Fall Prevention for Older Adults (ED), Weakness (ED), Dizziness ( ED) Additional Instructions: Follow up with your engagement executive and primary care provider in the next week. Avoid situations that could lead to a fall. Do not walk your dog. Return to the ED if you fall, have severe pain, develop weakness or numbness in one extremity , or for any other worsening of condition. Referrals: Rashad Ortiz MD [Medical Doctor] - As per Instructions Julio Strange MD [Medical Doctor] - As per Instructions Report Scribed for: Ion Perry Report Scribed by: Adrienne Ayala Date of Report: 11/18/16 Time of Report: 09:14 Physician Review and Approval Statement: Portions of this note were transcribed by an ED scribe. I personally performed the history, physical exam, and medical decision making; and confirm the accuracy of the information in the transcribed note.
[2016-11-18 09:29] LABS: % IMMATURE GRANULYOCYTES 0.3 % (0.0-1.1); ABSOLUTE IMMATURE GRANULOCYTES 0.02 10^3/uL (0.00-0.10); ADD DIFF? NO; ADD MORPH? NO; ADD SCAN? NO; ATYPICAL LYMPHOCYTE FLAG 0 (0-99); FRAGMENT RBC FLAG 0 (0-99); HEMATOCRIT 44.3 % (40.0-51.0); HEMOGLOBIN 15.9 g/dL (13.7-17.5); LEFT SHIFT FLG 0 (0-99); LIPEMIA HEMOLYSIS FLAG 90 (0-99); MEAN CELL HEMOGLOBIN 32.1 pg (27.9-34.1); MEAN CELL HEMOGLOBIN CONCENTR. 35.9 g/dL (32.4-36.7); MEAN CELL VOLUME 89.3 fL (81.5-99.8); MEAN PLATELET VOLUME 8.9 fL (8.7-11.7); PLATELET CLUMPS FLAG 20 (0-99); PLATELET COUNT 243 10^3/uL (150-400); RED BLOOD CELL COUNT 4.96 10^6/uL (4.40-6.38); RED CELL DISTRIBUTION WIDTH 12.6 % (11.5-15.2)
--- NOTE | 2016-11-18 09:30 | CPEKG ---
Heart Rate: 70 RR Interval: 857 P-R Interval: 256 QRSD Interval: 138 QT Interval: 452 QTC Interval: 488 QRS [place]: -78 T Wave [place]: 127 EKG Severity - ABNORMAL ECG - EKG Impression: ATRIAL-PACED RHYTHM EKG Impression: NONSPECIFIC IVCD WITH LAD EKG Impression: LEFT VENTRICULAR HYPERTROPHY Preliminary Awaiting MD Review
[2016-11-18 09:39] LABS: ALANINE AMINOTRANSFERASE 69 IU/L (21-72); ALBUMIN 3.9 g/dL (3.5-5.0); ALKALINE PHOSPHATASE 80 IU/L (38-126); ANION GAP 10 mEq/L (8-16); ASPARTATE AMINOTRANSFERASE 78 IU/L (17-59); BILIRUBIN,TOTAL 0.8 mg/dL (0.1-1.4); BILIRUBIN-CONJUGATED 0.3 mg/dL (0.0-0.5); BILIRUBIN-UNCONJUGATED 0.5 mg/dL (0.0-1.1); CALCIUM 9.5 mg/dL (8.5-10.4); CARBON DIOXIDE 25 mEq/l (22-31); CHLORIDE 101 mEq/L (97-110); CREATININE 0.9 mg/dL (0.7-1.3); GLOMERULAR FILTRATION RATE > 60; GLUCOSE 136 mg/dL (70-100); SODIUM 136 mEq/L (134-144); TOTAL PROTEIN 7.4 g/dL (6.3-8.2)
[2016-11-18 09:52] LABS: TROPONIN I 0.013 ng/mL (0.000-0.034)
[2016-11-18 12:52] VITALS: BP 128/89; PULSE 80; RESP 16; TEMP 97.9; O2SAT 96
== END 2016-11-18 13:28 | disposition home or self-care (01) ==
LOC: EDUNIT#
DX: R53.1 Weakness (principal); R42 Dizziness and giddiness; I10 Essential (primary) hypertension; E11.9 Type 2 diabetes mellitus without complications; Z95.0 Presence of cardiac pacemaker; Z79.82 Long term (current) use of aspirin

== ENCOUNTER 2016-11-18 16:45 | Inpatient (IN) | payer OTHER, MEDICARE ==
[2016-11-18] MEDS ORDERED: NS 1,000 ML IV ONE (16:55)
[2016-11-18 17:06] LABS: % IMMATURE GRANULYOCYTES 0.3 % (0.0-1.1); ABSOLUTE IMMATURE GRANULOCYTES 0.02 10^3/uL (0.00-0.10); ADD DIFF? NO; ADD MORPH? NO; ADD SCAN? NO; ATYPICAL LYMPHOCYTE FLAG 0 (0-99); FRAGMENT RBC FLAG 0 (0-99); HEMATOCRIT 45.1 % (40.0-51.0); HEMOGLOBIN 15.9 g/dL (13.7-17.5); LEFT SHIFT FLG 0 (0-99); LIPEMIA HEMOLYSIS FLAG 90 (0-99); MEAN CELL HEMOGLOBIN 31.9 pg (27.9-34.1); MEAN CELL HEMOGLOBIN CONCENTR. 35.3 g/dL (32.4-36.7); MEAN CELL VOLUME 90.6 fL (81.5-99.8); MEAN PLATELET VOLUME 8.8 fL (8.7-11.7); PLATELET CLUMPS FLAG 0 (0-99); PLATELET COUNT 245 10^3/uL (150-400); RED BLOOD CELL COUNT 4.98 10^6/uL (4.40-6.38); RED CELL DISTRIBUTION WIDTH 12.8 % (11.5-15.2)
--- NOTE | 2016-11-18 17:14 | EDPHY ---
H & P Time Seen by Provider: 11/18/16 16:49 HPI/ROS: CHIEF COMPLAINT: Double vision and dizziness HISTORY OF PRESENT ILLNESS: The patient is a 76-year-old man with a history of coronary artery disease, ventricular tachycardia status post AICD and ablation, diabetes, peripheral neuropathy and dementia who comes to the emergency department as a stroke alert. The patient was seen here earlier this morning and had a negative head CT. At that time he was complaining of dizziness which according to his alf medical record is fairly chronic. He returned to the alf around 1 o'clock this afternoon and that is when he was last seen normal. He then was found down in his room about an hour ago and was again complaining of double vision which she has had in the past associated with TIAs. Stroke alert was called and he was brought here. To me he complains of persistent dizziness and double vision. No facial deficits. He does have difficulty lifting his left leg on the gurney. REVIEW OF SYSTEMS: Constitutional: denies: chills, fever, recent illness, recent injury EENTM: See HPI denies: nose congestion Respiratory: denies: cough, shortness of breath Cardiac: denies: chest pain, irregular heart rate, lightheadedness, palpitations Gastrointestinal/Abdominal: denies: abdominal pain, diarrhea, nausea, vomiting, blood streaked stools Genitourinary: denies: dysuria, frequency, hematuria, pain Musculoskeletal: denies: joint pain, muscle pain Skin: denies: lesions, rash, jaundice, bruising Neurological: See HPI denies: headache, Hematologic/Lymphatic: denies: blood clots, easy bleeding, easy bruising Immunologic/allergic: denies: HIV/AIDS, transplant EXAM: GENERAL: Well-appearing, well-nourished and in no acute distress. HEAD: Atraumatic, normocephalic. EYES: Pupils equal round and reactive to light, extraocular movements intact, sclera anicteric, conjunctiva are normal. ENT: TMs normal, nares patent, oropharynx clear without exudates. Moist mucous membranes. NECK: Normal range of motion, supple without lymphadenopathy or JVD. LUNGS: Breath sounds clear to auscultation bilaterally and equal. No wheezes rales or rhonchi. HEART: Regular rate and rhythm without murmurs, rubs or gallops. ABDOMEN: Soft, nontender, normoactive bowel sounds. No guarding, no rebound. No masses appreciated. BACK: No CVA tenderness, no spinal tenderness, step-offs or deformities EXTREMITIES: Normal range of motion, no pitting or edema. No clubbing or cyanosis. NEUROLOGICAL: NIH stroke score 2, Difficulty lifting left leg, no nystagmus, no facial deficits, normal sensation throughout. No visual deficits to confrontation. Cranial nerves II through XII grossly intact. Normal speech, gait deferred . 5/5 strength and right leg and both arms, normal movement in all extremities, normal sensation PSYCH: Normal mood, normal affect. SKIN: Warm, dry, normal turgor, no visible rashes or lesions. Source: Patient Exam Limitations: No limitations - Medical/Surgical History Hx Asthma: No Hx Chronic Respiratory Disease: No Hx Diabetes: Yes Hx Cardiac Disease: Yes Hx Renal Disease: No Hx Cirrhosis: No Hx Alcoholism: No Hx HIV/AIDS: No Hx Splenectomy or Spleen Trauma: No Other PMH: Cardiac disease, hyperthyroid, open heart surgery, hernia repair, hep C, sciatic pain, DM2, psoriasis, - Family History Significant Family History: No pertinent family hx - Social History Smoking Status: Former smoker Alcohol Use: Sober Drug Use: None Constitutional: Initial Vital Signs Heart Rate 83 11/18/16 16:46 Respiratory Rate 13 11/18/16 16:46 Blood Pressure 104/72 11/18/16 16:46 O2 Sat (%) 92 11/18/16 16:46 O2 Delivery Mode Room Air O2 (L/minute) 2 Allergies/Adverse Reactions: Sulfa (Sulfonamide Antibiotics) Allergy (Intermediate, Verified 07/19/16 12:31) Home Medications: Medication Instructions Recorded Ranitidine HCl [Ranitidine HCl 150 300 mg PO BID 04/18/11 mg] Aspirin [Aspirin 325 mg (*)] 325 mg PO DAILY 06/15/16 Cholecalciferol Vit D3 [Vitamin D3 2,000 units PO DAILY #0 each 07/06/16 2000 units tab (OTC)] Cyanocobalamin [Vitamin B12 (*)] 1,000 mcg PO DAILY #0 tab 07/06/16 DULoxetine [Cymbalta 60 MG (*)] 60 mg PO DAILY #30 cap 07/06/16 Gabapentin [Neurontin 300 MG (*)] 300 mg PO BID@ #60 cap 07/06/16 Gabapentin [Neurontin 300 MG (*)] 600 mg PO HS #30 cap 07/06/16 Rosuvastatin Calcium [Crestor 40mg 40 mg PO DAILY@17 #30 tab 07/06/16 (*)] Sotalol HCl [Betapace 80 MG (*)] 80 mg PO BID #60 tab 07/06/16 Acetaminophen [Tylenol ES 500 mg 1,000 mg PO Q8H PRN 11/09/16 (*)] Ascorbic Acid [Vitamin C 500 mg 1,000 mg PO DAILY 11/09/16 (*)] Clobetasol 0.05% [Temovate Topical 1 maynor TP DAILY PRN 11/09/16 Solution] DULoxetine [Cymbalta 30 MG (*)] 30 mg PO HS 11/09/16 Donepezil HCl [Aricept 5 MG (*)] 5 mg PO DAILY 11/09/16 Fesoterodine Fumarate [Toviaz (*)] 4 mg PO DAILY PRN 11/09/16 Levalbuterol Inhaler [Xopenex Hfa 1 puffs IH TID PRN 11/09/16 Inhaler (*)] Levothyroxine [Synthroid 88 mcg 88 mcg PO DAILY06 11/09/16 (*)] Mbx Soln;Maalox/Diphen/Lido 5 ml PO PRN PRN 11/09/16 [Maalox/Diphenhydramine/Lido] Nitroglycerin [Nitrostat 0.4 mg 0.4 mg SL Q5M PRN 11/09/16 (*)] [place]-3 Fatty Acids [Fish Oil 1000 1,000 mg PO DAILY 11/09/16 mg (*)] Tetrahydrozoline 0.05% [Visine (*)] 1 drop OP DAILY PRN 11/09/16 clonazePAM [CLONAZEPAM] 0.25 mg PO HS 11/09/16 lamoTRIgine [LamICTAL 100 MG (*)] 100 mg PO HS 11/09/16 traMADol [Ultram 50 mg (*)] 50 mg PO DAILY PRN 11/09/16 traMADol [Ultram 50 mg (*)] 50 mg PO TID 11/09/16 Clopidogrel Bisulfate [Plavix (*)] 75 mg PO HS 11/18/16 Medical Decision Making - Diagnostics EKG Interpretation: An EKG obtained and was read and documented in trace view. Please see trace view for full reading and report. Atrial paced rhythm, unchanged from previous Imaging: Discussed imaging studies w/ cattle driver Radiologist ED Course/Re-evaluation: 5:[address] Asif from [facility] was consulted and has interview the patient over Teleprompter. The patient is not a tPA candidate. It is difficult to pinpoint the onset of symptoms. He does recommend CT angio. I will order x-ray the patient's hip because he is now unable to lift his left leg and he fell. 6:[address] angiograms are negative. H states that his double vision has resolved. He is still unable to lift his left hip. No abnormality seen on the hip x-ray. He denies having any leg or back pain. His daughter has arrived and states that she visited him at 3:00 p.m. and that he was completely normal that time and was ambulatory. I discussed the case again with [facility] and they continue to feel that he is not a tPA candidate. His NIH stroke score was only 2. I discussed the case with Dr. Nuñez who will admit to the medical service. Differential Diagnosis: Partial list of the Differential diagnosis considered include but were not limited to; CVA, electrolyte abnormality, trauma and although unlikely based on the history and physical exam, I also considered infection, multiple sclerosis, arrhythmia, cardiac disease. - Data Points Laboratory Results: Laboratory Results 11/18/16 16:50 11/18/16 16:50 Medications Given: Ascorbic Acid (Vitamin C) 1,000 mg PO DAILY [facility] Stop: 05/18/17 08:59 Last Admin: 11/19/16 09:53 Dose: 1,000 mg Aspirin (Aspirin) 325 mg PO DAILY [facility] Stop: 05/18/17 08:59 Last Admin: 11/19/16 09:50 Dose: 325 mg Cholecalciferol (Vitamin D) 2,000 units PO DAILY [facility] Stop: 05/18/17 08:59 Last Admin: 11/19/16 09:49 Dose: 2,000 units Clonazepam (Klonopin) 0.25 mg PO [facility] Stop: 05/17/17 22:14 Last Admin: 11/18/16 22:14 Dose: 0.25 mg Clopidogrel Bisulfate (Plavix) 75 mg PO HS [facility] Stop: 05/17/17 22:14 Last Admin: 11/18/16 22:26 Dose: Not Given Donepezil HCl (Aricept) 5 mg PO DAILY [facility] Stop: 05/18/17 08:59 Last Admin: 11/19/16 09:49 Dose: 5 mg Duloxetine HCl (Cymbalta) 60 mg PO DAILY [facility] Stop: 05/18/17 08:59 Last Admin: 11/19/16 09:50 Dose: 60 mg Duloxetine HCl (Cymbalta) 30 mg PO HS [facility] Stop: 05/17/17 22:14 Last Admin: 11/18/16 22:27 Dose: Not Given Famotidine (Pepcid) 20 mg PO BID [facility] Stop: 05/18/17 08:59 Last Admin: 11/19/16 09:50 Dose: 20 mg Gabapentin (Neurontin) 600 mg PO HS [facility] Stop: 05/17/17 22:14 Last Admin: 11/18/16 22:18 Dose: Not Given Gabapentin (Neurontin) 300 mg PO BID@07,15 [facility] Stop: 05/18/17 06:59 Last Admin: 11/19/16 05:56 Dose: 300 mg Insulin Human Lispro (Humalog Lispro) 0 unit SC TIDMEAL [facility] PRN Reason: Protocol Stop: 05/18/17 07:59 Last Admin: 11/19/16 12:43 Dose: Not Given Lamotrigine (Lamictal) 100 mg PO HS [facility] Stop: 05/17/17 22:14 Last Admin: 11/18/16 22:28 Dose: Not Given Levothyroxine Sodium (Synthroid) 88 mcg PO DAILY06 [facility] Stop: 05/18/17 05:59 Last Admin: 11/19/16 05:55 Dose: 88 mcg Ilsga-[id number] Ethyl Esters (Fish Oil) 1,000 mg PO DAILY [facility] Stop: 05/18/17 08:59 Last Admin: 11/19/16 09:49 Dose: 1,000 mg Sotalol HCl (Betapace) 80 mg PO BID [facility] Stop: 05/17/17 21:59 Last Admin: 11/19/16 09:50 Dose: 80 mg Tramadol HCl (Ultram) 50 mg PO TID [facility] Stop: 05/17/17 21:59 Last Admin: 11/19/16 09:53 Dose: 50 mg Vitamin B Complex (Vitamin B12) 1,000 mcg PO DAILY [facility] Stop: 05/18/17 08:59 Last Admin: 11/19/16 09:49 Dose: 1,000 mcg Discontinued Medications Sodium Chloride (Ns) 1,000 mls @ 500 mls/hr IV EDNOW ONE PRN Reason: Protocol Stop: 11/18/16 18:54 Last Admin: 11/18/16 17:17 Dose: 1,000 mls Sodium Chloride (Ns) 1,000 mls @ 75 mls/hr IV CONT [facility] Stop: 11/19/16 08:29 Last Admin: 11/18/16 22:45 Dose: 1,000 mls Perflutren Lipid Microsphere (Definity) 0 mg IV ONCE ONE Stop: 11/19/16 09:01 Last Admin: 11/19/16 10:57 Dose: Not Given Departure - Departure Disposition: [facility] Acute Clinical Impression: Vision changes, Left leg weakness Condition: Fair
--- NOTE | 2016-11-18 17:15 | PDCONSULT ---
Digital Campaign Manager Note: Mike Hinojosa Telehealth Note Demographics Consult Type Acute Stroke First Name Gabriel Last Name Beverley Date of 1940 Age: 76 Gender Male Time of initial page (): 11/18/2016 16:45 Time of return call (): 11/18/2016 16:47 Time Ready to Initiate Telemed Consult ( Time): 11/18/2016 16:52 HPI Additional History (Free Text): 76yo man who was seen this am with dizziness and gait issues. CT head was negative, and sent back to custodial after symptoms got better. He then had increased dizziness as well as new double vision. He denies slurring of speech. He has report of left sided weakness for the last [address] [facility]-- Past Medical History: coronary artery disease, Dementia, Diabetes Mellitus, pacer, Vtach, neuropathy Exam Cranial Nerves nystagmus to the left NIHSS Time (): 11/18/2016 17:12 LOC 1a: 0 = Alert; keenly responsive LOC 1b: 1 = Answers one question correctly LOC Commands: 0 = Performs both tasks correctly Best Gaze: 0 = Normal Visual: 0 = No visual loss Facial Palsy 1 = Minor paralysis (flattened nasolabial fold, asymmetry on smiling) Motor Arm L: 0 = No drift; limb holds 90 (or 45) degrees for full 10 seconds Motor Arm R: 0 = No drift; limb holds 90 (or 45) degrees for full 10 seconds Motor Leg L: 2 = Some effort against gravity; leg falls to bed by 5 seconds, but has some effort against gravity Motor Leg R: 0 = No drift; leg holds 30-degree position for full 5 seconds Limb Ataxia 0 = Absent Sensory: 0 = Normal; no sensory loss Best Language: 0 = No aphasia; normal Dysarthria: 0 = Normal Extinction + Inattention: 0 = No abnormality NIHSS: [address]: no bleed Assessment Assessment: likely posterior circulation stroke vs BPPV Plan Lytic/Intervention: NOT IV or IA candidate tPA Exclusion > 4.5 hr Blood Pressure Managment: Labetolol Target Blood Pressure: SBP < 220 Labs Comprehensive metabolic panel, ESR, HgbA1c, LFT, Lipid Panel, UDS Imaging CTA Head, CTA Neck, MRI brain without Diagnostic test echocardiogram without bubble Therapy/Eval NPO until cleared by swallow evaluation, PT/OT, Speech/Swallow therapy consult Medication aspirin 81mg per day VTE Prophylaxis SCD, Heparin 5000 units subcutaneously q 12 hours Other LDL goal less than 70, permissive HTN, telemetry monitoring, I have discussed my recommendations with the referring provider Disposition admit
--- NOTE | 2016-11-18 17:20 | CPEKG ---
Heart Rate: 71 RR Interval: 845 P-R Interval: 244 QRSD Interval: 142 QT Interval: 476 QTC Interval: 518 QRS [place]: -77 T Wave [place]: 130 EKG Severity - ABNORMAL ECG - EKG Impression: ATRIAL-PACED RHYTHM EKG Impression: NONSPECIFIC IVCD WITH LAD EKG Impression: LEFT VENTRICULAR HYPERTROPHY EKG Impression: Unchanged from previous Electronically Signed By: Van Rojas 18-Nov-2016 17:24:08
[2016-11-18] MEDS ORDERED: IOPAMIDOL (ISOVUE 370) 100 ML BTL IV ONE (17:27)
[2016-11-18 17:28] LABS: INR 1.06 (0.83-1.16); PROTIME(PATIENT) 13.7 SEC (12.0-15.0)
[2016-11-18 18:03] LABS: ANION GAP 11 mEq/L (8-16); CARBON DIOXIDE 25 mEq/l (22-31); CHLORIDE 96 mEq/L (97-110); GLOMERULAR FILTRATION RATE > 60; GLUCOSE 150 mg/dL (70-100); SODIUM 132 mEq/L (134-144)
[2016-11-18] MEDS ORDERED: ACETAMINOPHEN 325 MG TAB PO PRN (18:23)
[2016-11-18] MEDS ORDERED: ONDANSETRON 4 MG/2 ML VIAL IVP PRN (18:23)
[2016-11-18] MEDS ORDERED: ONDANSETRON DISINTEGRATING 4 MG TAB PO PRN (18:23)
[2016-11-18] MEDS ORDERED: D50W 25 GM/50 ML SYR IVP PRN (20:18)
[2016-11-18] MEDS ORDERED: D10W 250 ML PRN HYPOGLYCEMIA IV (20:30)
--- NOTE | 2016-11-18 20:54 | GHP ---
[f rep st] HISTORY AND PHYSICAL DATE OF ADMISSION: 11/18/2016 CHIEF COMPLAINT: Double vision, left leg weakness. HISTORY OF PRESENT ILLNESS: A 76-year-old male with history of coronary artery disease, VTE status post AICD ablation, diabetes, subdural hematoma, who presented to the ER as a stroke alert. He was seen here earlier this morning in the ER with dizziness, which is chronic. CT head at that time was negative. He returned to his assisted living at [facility] this afternoon, and about 1 o'clock, he was complaining of double vision and fell. He said he was trying to get his walker into his bedroom and hit the dresser. He was down and could not get up. He denies any chest pain, shortness of breath. No fevers, chills, or sweats. No nausea, vomiting, diarrhea. His daughter is at bedside with him. She said she saw him at 3 p.m., and he was fine. He uses a walker at baseline. He says currently no double vision. The patient was seen in the emergency room on 07/19/2016 with hypotension. He had an echocardiogram that showed EF of 30% to 35%. Old apical infarct, mid to distal inferoseptal, anteroseptal, anterior, inferior, apical lateral akinesis. There is a pacemaker lead in the right ventricle, mobile echodensity noted or near the apical portion of the pacemaker lead. Cannot rule out vegetation. REVIEW OF SYSTEMS: I completed a 10-point review of systems, negative except as noted in HPI. PAST MEDICAL HISTORY: 1. CAD. 2. Dementia. 3. Diabetes. 4. V-tach status post AICD ablation. 5. Pacemaker. 6. Neuropathy. 7. Ischemic cardiomyopathy. 8. KAILEY. 9. Hyperlipidemia. 10. Hepatitis C. 11. BPH. 12. Recent subdural hematoma in June, secondary fall on anticoagulation. 13. History of rectus femoris hematoma on mechanical falls. PAST SURGICAL HISTORY: 1. PCI heart. 2. AICD placement. 3. Cardiac ablation. FAMILY HISTORY: Noncontributory. SOCIAL HISTORY: Lives at [facility]. Uses a walker. 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 No alcohol, tobacco, or illicits. HOME MEDICATIONS: See medication reconciliation. ALLERGIES: Sulfa. PHYSICAL EXAMINATION: VITAL SIGNS: Temperature 36.8, blood pressure 113/62, heart rate 70s, respirations 18, 93% on room air. GENERAL: Well-appearing male , lying in bed, no acute distress. HEENT: PERRLA. EOMI. Oropharynx clear. CV: Regular rate and rhythm. No murmurs, gallops, rubs. LUNGS: Clear to auscultation bilaterally. ABDOMEN: Soft, nontender, nondistended. Positive bowel sounds. : No Kingsley, no suprapubic tenderness. MUSCULOSKELETAL: 5/5 upper extremity strength, 5/5 right lower extremity. Left: The patient is cannot lift; however, when I passively elevate, he can hold for 10 seconds. Normal sensation to touch, normal plantar flexor strength. LABORATORY DATA: WBC 6, hemoglobin 15, hematocrit 45, platelets 245. Coags within normal. Sodium 132, potassium 4, chloride 96, carbon dioxide 25, creatinine 1, glucose 150, calcium is 10. Troponin this morning was 0.013. UA is pending. CT head at 10 o'clock this morning: No acute intracranial abnormality. Repeat CT this afternoon at 1648, no acute intracranial hemorrhage. Chest x-ray personally reviewed by me: Pacemaker without pneumothorax. No opacity. Cervical spine CT: No acute fracture. Hip x-ray: Left hip negative for fracture. Head and neck CTA: Normal intracranial arterial circulation. No evidence of embolic disease or aneurysm. EKG is personally reviewed by me: AV paced. ASSESSMENT AND PLAN: 1. Dizziness/double vision: concern for acute stroke, given left leg weakness. The patient was evaluated by Telemedicine. TPA was not indicated. It is difficult to get a good story from patient. Per his daughter, he was normal at 3 o'clock. No evidence of arrhythmia. Will monitor on telemetry. He had an echo on August 03 that did show possible vegetation on a pacer lead. Query a possible thrombus. I will repeat echocardiogram. Continue with aspirin and Plavix. He will be evaluated by Neurology in the morning. Allow for permissive hypertension. He cannot undergo MRI, given pacemaker. 2. Fall: This sounds mechanical, as he said he was having double vision and tripped. Cervical spine CT was negative, as well as left hip x-ray. Will have PT/OT evaluate. 3. History of subdural hematoma: This has resolved. 4. Coronary artery disease: Aspirin, Plavix, statin. 5. History of ventricular tachycardia status post automatic implantable cardioverter defibrillator ablation on sotalol: Continue this. 6. Dementia. 7. Diabetes: Sliding scale insulin. 8. Hyperlipidemia: Statin. 9. History of hepatitis C. 10. Diet: Cardiac. 11. Deep venous thrombosis prophylaxis: Sequential compression devices. DISPOSITION: The patient warrants observation admission, given double vision/ dizziness and concern for possible stroke. He will be evaluated by Neurology in the morning with repeat echo. /[id number]/MODL MTDD
[2016-11-18] MEDS ORDERED: NITROGLYCERIN 0.4 MG BTL SL PRN (21:57)
[2016-11-18] MEDS ORDERED: TETRAHYDROZOLINE 0.05% 15 ML OPHT.BTL OP PRN (21:57)
[2016-11-18] MEDS ORDERED: traMADol 50 MG TAB PO PRN (21:57)
[2016-11-18] MEDS ORDERED: FESOTERODINE FUMARATE 4 MG TAB.ER PO PRN (21:57)
[2016-11-18] MEDS ORDERED: LEVALBUTEROL INHALER 200 PUFFS/15 GM MDI IH PRN (21:57)
[2016-11-18] MEDS ORDERED: MBX SOLN 30 ML BOTTLE PO PRN (21:57)
[2016-11-18] MEDS ORDERED: CLOBETASOL 0.05% 25 ML TOPICAL SOLUTION TP PRN (21:57)
[2016-11-18] MEDS ORDERED: ACETAMINOPHEN 500 MG TAB PO PRN (21:57)
[2016-11-18] MEDS: clonazePAM 0.5 MG TAB PO SCH (22:14)
[2016-11-18] MEDS: GABAPENTIN 300 MG CAP PO SCH (22:18)
[2016-11-18] MEDS: traMADol 50 MG TAB PO SCH (22:19)
[2016-11-18] MEDS: CLOPIDOGREL BISULFATE 75 MG TAB PO SCH (22:26)
[2016-11-18] MEDS: DULoxetine 30 MG CAP PO SCH (22:27)
[2016-11-18] MEDS: lamoTRIgine 100 MG TAB PO SCH (22:28)
[2016-11-18] MEDS: SOTALOL HCL 80 MG TAB PO SCH (22:30)
[2016-11-18] MEDS ORDERED: NS 1,000 ML IV SCH (22:30)
[2016-11-19 01:13] LABS: COLOR YELLOW; LEUKOCYTE ESTERASE,URINE NEGATIVE (NEGATIVE); NITRITE,URINE NEGATIVE (NEGATIVE)
[2016-11-19 04:58] LABS: HEMATOCRIT 40.1 % (40.0-51.0); HEMOGLOBIN 13.7 g/dL (13.7-17.5); MEAN CELL HEMOGLOBIN CONCENTR. 34.2 g/dL (32.4-36.7); MEAN CELL VOLUME 90.7 fL (81.5-99.8); RED BLOOD CELL COUNT 4.42 10^6/uL (4.40-6.38); RED CELL DISTRIBUTION WIDTH 12.7 % (11.5-15.2)
[2016-11-19 05:26] LABS: ANION GAP 6 mEq/L (8-16); CALCIUM 9.3 mg/dL (8.5-10.4); CARBON DIOXIDE 24 mEq/l (22-31); CHLORIDE 105 mEq/L (97-110); CHOLESTEROL 118 mg/dL (140-220); CHOLESTEROL/HDL RATIO 3.28 RATIO (1.00-4.97); CREATININE 0.9 mg/dL (0.7-1.3); GLOMERULAR FILTRATION RATE > 60; GLUCOSE 109 mg/dL (70-100); HIGH DENSITY LIPOPROTEIN 36 mg/dL (40-65); LDL/HDL RATIO 1.39 RATIO (1.00-3.64); LOW DENSITY LIPOPROTEIN 50 mg/dL (80-100); NON-HIGH DENSITY LIPOPROTEIN 82 mg/dL (90-129); SODIUM 135 mEq/L (134-144); TRIGLYCERIDE 164 mg/dL (40-150); VERY LOW DENSITY LIPOPROTEINS 32 mg/dL (8-25)
[2016-11-19] MEDS: LEVOTHYROXINE 88 MCG TAB PO SCH (05:55)
[2016-11-19] MEDS: GABAPENTIN 300 MG CAP PO SCH ×3 (05:56→22:02)
[2016-11-19] MEDS ORDERED: PERFLUTREN LIPID MICROSPHERES 1.1 MG/ML VIAL IV ONE (09:00)
[2016-11-19] MEDS: OMEGA-3 FATTY ACIDS 1,000 MG CAP PO SCH (09:49)
[2016-11-19] MEDS: CHOLECALCIFEROL VIT D3 2,000 UNITS TAB/CAP PO SCH (09:49)
[2016-11-19] MEDS: DONEPEZIL HCL 5 MG TAB PO SCH (09:49)
[2016-11-19] MEDS: CYANO/VITAMIN B12 1000 MCG TAB PO SCH (09:49)
[2016-11-19] MEDS: DULoxetine 60 MG CAP PO SCH (09:50)
[2016-11-19] MEDS: FAMOTIDINE 20 MG TAB PO SCH ×2 (09:50→22:03)
[2016-11-19] MEDS: SOTALOL HCL 80 MG TAB PO SCH ×2 (09:50→22:02)
[2016-11-19] MEDS: ASPIRIN 325 MG TAB PO SCH (09:50)
[2016-11-19] MEDS: traMADol 50 MG TAB PO SCH ×3 (09:53→22:03)
[2016-11-19] MEDS: INSULIN LISPRO 100 UNIT/ML SC SCH ×3 (09:53→18:15)
[2016-11-19] MEDS: ASCORBIC ACID 500 MG TAB PO SCH (09:53)
--- NOTE | 2016-11-19 10:19 | NEUROPROG ---
Assessment: [id number] CC: Possible stroke HPI: He has chronic dizziness but noted on 11/18/16 at 1 pm he developed double vision and fell. He possibly also had left leg weakness. He was brought to [facility] . He uses a walker at baseline. He could not get up on his own so he was brought to [facility] and admitted for stroke evaluation. In the ER his double vision had resolved. Tele-neurology evaluated him but did not recommend TPA. A TTE in July 2016 showed reduced EF of 30%, old apical infarct, and a pacemaker lead. Also, an echodensity was also seen so a vegetation cannot be ruled out. I initially saw him on 11/19/16. He reported his double vision and left leg weakness had resolved and he felt back to normal. PMHx: CAD, dementia, DM, V-tach post AICD ablation, pacemaker, neuropathy, ischemic cardiomyopathy, KAILEY, HLD, Hep C, BPH, recent SDH in June 2016 from anticoagulation, history of rectus femoris hematoma from falls PSHx: PCI heart, AICD placement, cardiac ablation, SHx: lives at assisted living, uses walker, no tobacco FHx: NC ROS: Pt denied acute fever, total vision loss, active severe chest pain, respiratory failure, total body severe rash, total bowel/bladder incontinence, psychosis, active seizures, or active bleeding O: VS reviewed General: Alert Eyes: Fundoscopic exam not able to visualize optic disks CV: Heart RRR, no murmur, no carotid bruit Lungs: Clear to auscultation bilaterally, no rhonci or rales Neuro: - Mental: . Oriented x person/place/date . concentration appears normal . speech fluency/comprehension normal . memory appears normal . fund of knowledge appear intact - Cranial Nerves: . II: PERRL, VFFTC . III/IV/: EOMI, no nystagmus, normal smooth pursuits, no Ptosis . V: facial sensation intact to LT . VII: face symmetric to eye closure and smile . VIII: hearing intact to conversation . IX/X: uvula raises symmetrically . XI: SCM 5/5 B/L strength . XII: tongue protrudes midline w/nl strength - Motor: . Tone: normal tone in all 4 extrem . 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 No change since six hours prior. (I personally visualized the images on 11/19/16) 11/18/16- CTA head/neck: No acute changes Assessment: 1. Transient double vision, dizziness, left leg weakness: Possible stroke but cannot get brain MRI due to pacemaker. All symptoms resolved. Concern for cardiac vegetation or thrombus so TTE pending. 2. Falls Risk 3. Dementia 4. DM 5. CAD 6. History of SDH Plan: - 24 hour telemetry and TTE - Cannot have brain MRI due to pacemaker - Blood pressure < 220/120 x 48 hours then < 140/90 - H1AC goal < 7.0 - LDL goal < 70 (50), continue current statin - Continue aspirin qd and plavix 75 mg qd - PT/OT/Speech consulted Objective: Vital Signs Temp Pulse Resp BP Pulse Ox 36.6 C 71 19 120/73 91 L 11/19/16 07:28 11/19/16 09:50 11/19/16 07:28 11/19/16 09:50 11/19/16 07:28 Laboratory Results 11/19/16 04:35 11/19/16 04:35 11/18/16 11/19/16 11/20/16 05:59 05:59 05:59 Intake Total 1750 Output Total 750 Balance 1000 PT 13.7 SEC (12.0-15.0) 11/18/16 16:50 INR 1.06 (0.83-1.16) 11/18/16 16:50 Allergies/Adverse Reactions: Sulfa (Sulfonamide Antibiotics) Allergy (Intermediate, Verified 07/19/16 12:31)
--- NOTE | 2016-11-19 11:12 | ECHO ---
[email or web address] [address] [address] Main: [phone] Fax: Transthoracic Echocardiogram Name: YUAN SWEENEY MR#: [id number] Study Date: 11/19/2016 Study Time: 08:26 AM Date of : 1940 Age: 76 year(s) Height: 167.6 cm (66 in.) Weight: 77.57 kg (171 lb.) BSA: 1.87 m2 Gender: Male Examination: Echo Indication: Question CVA/eval for thrombus/possible vegetation pacer wire echo done 07/24 Image Quality: Contrast: 0.330 mg I.V. dose of Definity was administered to improve endocardial border definition. Requested by: Lanny Nuñez BP: / Heart Rate: Rhythm: Indication: Question CVA/eval for thrombus/possible vegetation pacer wire echo done 07/24 Procedure Staff Air Conditioning Engineer: Charla Liu Reading Physician: Satish Alexander Requesting Provider: Conclusions: no thrombus identified on this study however patient is clearly at risk with significant regional wall motion abnormalities. reduced left ventricular systolic function with ejection fraction of 35% evidence of prior anterior wall myocardial infarction significant aortic valve sclerosis while the aortic valve is trileaflet it is functionally bicuspid with progressive aortic insufficiency. Measurements: Chambers Valvular Assessment AV/MV Valvular Assessment TV/PV Normal Normal Normal Name Value Range Name Value Range Name Value Range Ao Tiara (MM): 4.3 cm (2.2 cm-3.7 AV meanP mmHg ( - ) TR Vmax: 2.34 mm/s ( - ) cm) MV E Vmax: 0.47 m/s ( - ) TR PGmax: 22 mmHg ( - ) IVSd (2D): 0.7 cm (0.6 cm-1.1 MV A Vmax: 0.68 m/s ( - ) syst. PAP: 27 mmHg ( - ) cm) MV E/A: 0.69 ( - ) LVDd (2D): 5.5 cm (4.2 cm-5.9 cm) LVDs (2D): 4.6 cm (2.1 cm-4 cm) LVPWd (2D): 0.7 cm (0.6 cm-1 cm) LVEF (2D): 32 (>=54 %) Visual EF: 35 % Continued Measurements: Chambers Valvular Assessment AV/MV Valvular Assessment TV/PV Patient: YUAN SWEENEY Study Date: 11/19/2016 Page 1 of 2 08:26 AM Name Value Name Value Name Value LADs: 5.4 cm MV E' Septal: 0.05 m/s CVP (est.): 5 mmHg LADs Lon.9 cm MV E/E' Septal: 8.90 LA Area: 22.1 cm2 MV E/E' Lateral: 6.20 Additional Vessels Name Value Ao Ascendin.8 cm Findings: Left Ventricle: Normal size left ventricle. The ejection fraction is visually estimated to be 35 %. No LV apical thrombus. There is a thin and bright akinetic IVS. There is a large,old apical infarct:mid to distal inferoseptal,anterior, inferior, apical lateral and apical thinning and akinesis.. Right Ventricle: Normal size right ventricle. There is a pacemaker lead noted in the right ventricle. Left Atrium: The left atrium is mildly dilated. Right Atrium: The right atrium is normal in size. Mitral Valve: The mitral valve is normal in appearance. Mild mitral valve regurgitation is present. Aortic Valve: The aortic valve is tri-leaflet. Mild aortic cusp calcification is noted. There is an eccentric jet of aortic insufficiency directed against the anterior mitral leaflet.. Tricuspid Valve: The tricuspid valve appears normal. Mild tricuspid regurgitation is present. The pulmonary artery pressure is normal. Pulmonic Valve: Moderate pulmonic valve regurgitation is noted. Pericardium: No pericardial effusion. (No Signature Object) Patient: YUAN SWEENEY Study Date: 11/19/2016 Page 2 of 2 08:26 AM [id number]
--- NOTE | 2016-11-19 12:19 | ASMTCMCOM ---
CM Note CM Note Notes: Chart reviewed. Met with patient to review dc POC. He currently lives at [facility] with [facility]. He was at [facility] alone and had a fall and stroke symptoms mainly double vision. These symptoms have resolved. He is for further testing. Per OT and patients self reported increasing reliance on walker they reccomend SNF, PT pending. Patient not receptive to idea of SNF as he has a pet dog at home. He is alert and oriented at this time. He reports he has 3 daughters in the area and one of them if reportedly his POA. CM to follow. Date Signed: 11/19/2016 12:18 PM Electronically Signed By:Melanie López RN
--- NOTE | 2016-11-19 16:13 | ASMTCMCOM ---
CM Note CM Note Notes: Spoke with MD regarding patient status. He is at baseline per neuro .Call to [facility] where pt resides and they are requiring patient have 24 hour care for undetermined amount of time given his recent falls and hospital visit. Conveyed to family this information and provided them with available choices to secure Private care, choose a SNF or have family provide 24 hour care. The daughters elected to provide 24 hour care with patient going to daughter's home in [place]. Information regarding address [address] [place] [id number] sent with referral to [facility]. Spoke to Susana at [facility] to confirm information recieved. Faxed a hard copy as well awaiting final dc order. Date Signed: 11/19/2016 04:12 PM Electronically Signed By:Melanie López RN
--- NOTE | 2016-11-19 16:41 | PDHOMEO2F ---
Home Oxygen Face to Face Home Orders: I certify that a physician or a nurse practitioner or physician's printing bindery assistant has had a [id number] encounter with this patient on the date of this order due to the diagnosis listed, which relates to the primary reason the patient requires home oxygen. Alternative treatments have been tried, or considered, and deemed ineffective. It is anticipated that supplemental oxygen will result in improvement with treatment. Home oxygen qualifying diagnosis: Chronic systolic CHF Home oxygen secondary diagnosis: CAD SpO2 on room air (%): 74 Frequency of home oxygen needed: with activity Home oxygen liters per minute: 2 Home oxygen delivery device: nasal cannula Concentrator: Yes E-tanks for mobility and back up: Yes If ordering portable O2, is the patient mobile in the home?: Yes I certify that, based on these findings, the home oxygen is medically necessary for this patient for the following length of time. Length of time home oxygen needed: 1 month
--- NOTE | 2016-11-19 16:48 | HOSPPROG ---
Hospitalist Progress Note Assessment/Plan: Assessment: 76 yo M p/w TIA in setting of chronic systolic CHF, CAD Plan: # TIA. Acute, new problem, further w/u indicated. Sx consisting of diplopia + ataxia + transient generalized weakness suggest posterior small vessel process, and complete resolution suggests TIA rather than CVA - unable to get MRI given PPM/AICD - CTA neck w/o stenosis - Echo w/o vegs, no thrombus seen, pt/family do not want to pursue BETTY at this time - get device interrogation to determine whether there was any arrhythmia corresponding to his event - d/w Dr. Parra, he recommends continuing home ASA/plavix/statin, recs outpt f/u 4 weeks # Chronic systolic CHF w/ chronic ischemic cardiomyopathy and CAD. No recent chest pain, getting exertional SOB, at risk for hypoxia w/ ambulation which could be contributing to ambulatory difficulties and falls - not acute exacerbation on CXR (personally interpreted) - get ambulatory pulse ox - Echo w/ EF 35% and focal wall motion abnl, similar to prior - defer further cardiac risk stratification given that he does not want to be on systemic anticoagulation given hx bleeds/falls, and a cath would be of limited utility - rec outpt Cards f/u to consider long-acting nitrate, optimize med regimen ( possible ACEi/ARB, adactone) # Dementia. Mild, AAOx3, in assisted living w/ HC # DM2. Cont ISS Diet. Diabetic PPx. High risk, SCDs, hold pharm given bleed risk Code. Full Dispo. ADD 11/20, patient was originally admitted with an anticipated lOS > 48hrs for reasonable medical necessity including TIA + high-risk co-morbid conditions (ischemic cardiomyopathy, CAD, sCHF, dementia) warranting inpatient admission status, as specified in the original order by Dr. Nuñez. Total time 40 minutes regarding above w/ patient, > 50% time spent counseling re : above, coordinating care. Subjective: patient reports resolution of symptoms Objective: Vital Signs Temp Pulse Resp BP Pulse Ox 36.4 C 74 18 139/70 H 92 11/19/16 16:00 11/19/16 16:00 11/19/16 16:00 11/19/16 16:00 11/19/16 16:00 Laboratory Results 11/19/16 04:35 11/19/16 04:35 11/18/16 11/19/16 11/20/16 05:59 05:59 05:59 Intake Total 1750 Output Total 750 Balance 1000 PT 13.7 SEC (12.0-15.0) 11/18/16 16:50 INR 1.06 (0.83-1.16) 11/18/16 16:50 - Physical Exam Constitutional: no apparent distress, appears nourished, not in pain, chronically ill appearing Cardiovascular: systolic murmur (II/ at sternum), No irregularly irregular, No tachycardia, No edema Respiratory: inspiratory crackles (faint in bases), No reduced air movement, No expiratory wheeze, No bronchial breath sounds, No respiratory distress Neurologic: AAOx3, sensation intact bilaterally, CN II-XII Intact, No weakness ( motor 5/5 bilat UE/LE), No facial droop Psychiatric: interacting appropriately, not anxious, not encephalopathic, thought process linear ICD10 Worksheet Patient Problems: Problems Problem Status Onset Left leg weakness Acute Vision changes Acute ACS (acute coronary syndrome) Acute CHF (congestive heart failure) Acute Multiple falls Acute Subdural hematoma Acute Thigh contusion Acute Vomiting Acute
[2016-11-19] MEDS ORDERED: ROSUVASTATIN CALCIUM 40 MG TAB PO SCH (17:00)
--- NOTE | 2016-11-19 17:45 | PDMN ---
Medical Necessity Medical necessity: los >2 mn for TIA, hypoxia, tachycardia, tachypnea & generalized weakness, unsafe for dc; comorbid CHF, dementia, DM, CAD, cardiomyopathy; per order 11/18 & progress note 11/19
[2016-11-19] MEDS: DULoxetine 30 MG CAP PO SCH (22:03)
[2016-11-19] MEDS: CLOPIDOGREL BISULFATE 75 MG TAB PO SCH (22:03)
[2016-11-19] MEDS: lamoTRIgine 100 MG TAB PO SCH (22:03)
[2016-11-19] MEDS: clonazePAM 0.5 MG TAB PO SCH (22:03)
[2016-11-20 04:36] VITALS: TEMP 97.9
[2016-11-20] MEDS: LEVOTHYROXINE 88 MCG TAB PO SCH (06:35)
[2016-11-20] MEDS: GABAPENTIN 300 MG CAP PO SCH (07:33)
[2016-11-20 07:42] VITALS: BP 138/76; PULSE 76; RESP 23; O2SAT 85
[2016-11-20] MEDS: INSULIN LISPRO 100 UNIT/ML SC SCH (07:56)
[2016-11-20] MEDS: SOTALOL HCL 80 MG TAB PO SCH (08:27)
[2016-11-20] MEDS: FAMOTIDINE 20 MG TAB PO SCH (08:27)
[2016-11-20] MEDS: OMEGA-3 FATTY ACIDS 1,000 MG CAP PO SCH (08:27)
[2016-11-20] MEDS: CYANO/VITAMIN B12 1000 MCG TAB PO SCH (08:27)
[2016-11-20] MEDS: DULoxetine 60 MG CAP PO SCH (08:27)
[2016-11-20] MEDS: ASPIRIN 325 MG TAB PO SCH (08:27)
[2016-11-20] MEDS: ASCORBIC ACID 500 MG TAB PO SCH (08:28)
[2016-11-20] MEDS: traMADol 50 MG TAB PO SCH (08:28)
[2016-11-20] MEDS: DONEPEZIL HCL 5 MG TAB PO SCH (08:28)
[2016-11-20] MEDS: CHOLECALCIFEROL VIT D3 2,000 UNITS TAB/CAP PO SCH (08:28)
--- NOTE | 2016-11-20 09:36 | PDCARPN ---
Cardiology Progress Note Chief Complaint: Acute diplopia with gait instability Assessment/Plan: Assessment: Patient is a 76 y/o male, well known to [facility] (seen by Dr. Christopher Lawson on Oct 08, 2016) with history of CAD s/p PCI, VT in setting of iCMP s/p ICD, HLP, Hep C, dementia, and subdural haematoma in June 2016, who presented to [facility] with acute neurologic findings. Patient with significant diplopia and gait instability with fall (the latter per patient). No complaints of chest pains or pressure, no PND or orthopnea. Compliance with medical therapy has been good. No abnormal bleeding or bruising has been noted. Events noted yesterday with relatively acute onset. Apprehension about further anticoagulation given gait instability as well as recent history of subdural haematoma in June. Full dose ASA therapy should continue, and Plavix covers CAD/PCI history and some degree components of neuro issues that have been noted. As of the writing of this note, the ICD did not reveal any arrhythmic pathology in association with the events that were noted (pSVT was appreciated in the past). According to the patient, all visual field deficits have resolved. Plan: (1) Would continue therapy on ASA (full strength) and Plavix for the time being - this is the safest option at present - there is not a sufficiency manner to image the brain (MRI) given the presence of ICD (2) Would maintain therapy on Crestor for HLP as well as CAD with PCI for the time being. Would also maintain annual assessment of cholesterol and LFTs (3) Supplemental oxygen should be continued based on some of the oxygen sats that have been noted (4) Would consider the addition of Spironolactone, but there has been a moderate degree of blood pressure fluctuation noted with this admission, and further assessment of blood pressures would be of benefit to ensure that the patient is not more consistently made hypotensive (especially with concerns about gait instability and falls) (5) Echocardiogram with sclerotic aortic valve (functionally bicuspid from TTE ) and there were some concerns about vegetation. Would consider repeat TTE in the coming weeks (after outpatient follow up). Family was not interested in BETTY as of yesterday, and with improvements in signs/symptoms noted at present, this is acceptable (6) Patient has diagnosis of KAILEY listed in the outpatient note, would ensure that CPAP is being used at night to lower the cardiac demands overnight (7) Cardiology will continue to follow this patient while in house - treatment options are limited by comorbidities and medical consultant presence Subjective: No cardiovascular complaints were voiced this morning Reviewed/Discussed With: multidisciplinary team Objective: Vital Signs (8 Hrs) Temp Pulse Resp BP Pulse Ox 11/20/16 07:29 36.6 C 76 23 H 138/76 H 85 L 11/20/16 04:00 36.6 C 73 16 106/67 96 Intake/Output (24 Hrs) 11/19/16 11/20/16 11/21/16 05:59 05:59 05:59 Intake Total 1750 750 Output Total 750 200 Balance 1000 750 -200 Intake: Oral (ml) 750 IV Infused (ml) 1750 Ns 1,000 ml @ 75 mls/hr 750 IV CONT VAN Rx#: [id number] Output: Urine (ml) 750 200 Urinal 350 200 Other: Weight 77.5 kg Intake Quantity Yes Yes Sufficient Number of Voids Toilet 1 Urinal 1 1 Result Diagrams: 11/19/16 04:35 11/19/16 04:35 EKG: Atrial paced rhythm Echocardiogram: LVEF 35% with mild aortic sclerosis - Physical Exam Constitutional: WDWN, healthy appearing, no apparent distress Eyes: PERRL, EOMI Ears, Nose, Mouth, Throat: moist mucous membranes Cardiovascular: regular rate and rhythm, no rubs, no gallops, systolic murmur ( II/ DC) Peripheral Pulses: 2+: dorsalis-pedis (R), dorsalis-pedis (L) Respiratory: clear to auscultate bilat, no crackles Gastrointestinal: normoactive bowel sounds Skin: no rashes, no edema Musculoskeletal: no muscular tenderness Neurologic: AAOx3, CN II-XII grossly intact Psychiatric: cooperative, interactive, following commands ICD10 Worksheet Patient Problems: Problems Problem Status Onset Left leg weakness Acute Vision changes Acute ACS (acute coronary syndrome) Acute CHF (congestive heart failure) Acute Multiple falls Acute Subdural hematoma Acute Thigh contusion Acute Vomiting Acute
--- NOTE | 2016-11-20 10:32 | PDIAF ---
- Diagnosis Diagnosis: TIA Code Status: Full Code - Medication Management Discharge Medications: Medications to Continue on Transfer Ranitidine HCl [Ranitidine HCl 150 mg] 300 mg PO BID 04/18/11 [Last Taken ] Aspirin [Aspirin 325 mg (*)] 325 mg PO DAILY 06/15/16 [Last Taken 11/18/16] Cholecalciferol Vit D3 [Vitamin D3 2000 units tab (OTC)] 2,000 units PO DAILY # 0 each 07/06/16 [Last Taken 11/18/16] Cyanocobalamin [Vitamin B12 (*)] 1,000 mcg PO DAILY #0 tab 07/06/16 [Last Taken 11/17/16] DULoxetine [Cymbalta 60 MG (*)] 60 mg PO DAILY #30 cap 07/06/16 [Last Taken 01/23] Gabapentin [Neurontin 300 MG (*)] 300 mg PO BID@07,15 #60 cap 07/06/16 [Last Taken 11/18/16] Gabapentin [Neurontin 300 MG (*)] 600 mg PO HS #30 cap 07/06/16 [Last Taken 12/24] Rosuvastatin Calcium [Crestor 40mg (*)] 40 mg PO DAILY@17 #30 tab 07/06/16 [ Last Taken 11/17/16] Sotalol HCl [Betapace 80 MG (*)] 80 mg PO BID #60 tab 07/06/16 [Last Taken 11/18] Acetaminophen [Tylenol ES 500 mg (*)] 1,000 mg PO Q8H PRN 11/09/16 [Last Taken Unknown] Ascorbic Acid [Vitamin C 500 mg (*)] 1,000 mg PO DAILY 11/09/16 [Last Taken 01/23] Clobetasol 0.05% [Temovate Topical Solution] 1 maynor TP DAILY PRN 11/09/16 [Last Taken Unknown] DULoxetine [Cymbalta 30 MG (*)] 30 mg PO HS 11/09/16 [Last Taken 11/17/16] Donepezil HCl [Aricept 5 MG (*)] 5 mg PO DAILY 11/09/16 [Last Taken 11/17/16] Fesoterodine Fumarate [Toviaz (*)] 4 mg PO DAILY PRN 11/09/16 [Last Taken Unknown] Levalbuterol Inhaler [Xopenex Hfa Inhaler (*)] 1 puffs IH TID PRN 11/09/16 [ Last Taken Unknown] Levothyroxine [Synthroid 88 mcg (*)] 88 mcg PO DAILY06 11/09/16 [Last Taken Unknown] Mbx Soln;Maalox/Diphen/Lido [Maalox/Diphenhydramine/Lido] 5 ml PO PRN PRN [Last Taken Unknown] Nitroglycerin [Nitrostat 0.4 mg (*)] 0.4 mg SL Q5M PRN 11/09/16 [Last Taken Unknown] [place]-3 Fatty Acids [Fish Oil 1000 mg (*)] 1,000 mg PO DAILY 11/09/16 [Last Taken 11/18/16] Tetrahydrozoline 0.05% [Visine (*)] 1 drop OP DAILY PRN 11/09/16 [Last Taken Unknown] clonazePAM [CLONAZEPAM] 0.25 mg PO HS 11/09/16 [Last Taken Unknown] lamoTRIgine [LamICTAL 100 MG (*)] 100 mg PO HS 11/09/16 [Last Taken 11/17/16] traMADol [Ultram 50 mg (*)] 50 mg PO DAILY PRN 11/09/16 [Last Taken Unknown] traMADol [Ultram 50 mg (*)] 50 mg PO TID 11/09/16 [Last Taken 11/18/16] Clopidogrel Bisulfate [Plavix (*)] 75 mg PO HS 11/18/16 [Last Taken 11/17/16] Discharge Medications: Refer to the Discharge Home Medication list for PRN reason. PICC Care - Routine: N/A - Orders Services needed: Home Care, Registered Nurse, Physical Therapy, Occupational Therapy Home Care Face to Face: I certify that this patient was under my care and that I had the required [id number] encounter meeting the encounter requirements on the discharge day. My findings support the fact that the patient is homebound as defined in Home Care Face to Face Continued: CMS Chapter 7 Medicare Benefits Manual 30.1.1 , The condition of the patient is such that there exists a normal inability to leave home and consequently, leaving home would require a considerable and taxing effort. - Follow Up Care Current Providers and Referrals: Patient,NotPresent [Unknown] - As per Instructions Jason Miles MD [Medical Doctor] - Royal Parra DO [Medical Doctor] -
[2016-11-20] MEDS ORDERED: FLU VACC QS 2017-18 (3YR+)/PF 0.5 ML SYR (FLUARIX QUAD) IM ONE (12:00)
--- NOTE | 2016-11-20 12:02 | ASMTCMCOM ---
CM Note CM Note Notes: Spoke w/ daughter, Juliana twice today on phone. Juliana plans to take Pt. home "for a few days" and then have him go back to [facility]. [facility] asking that Pt. have 24-hour care if he returns there. PT recommending 24-hour care as well. SWer contacted pre-existing home care agency, [facility] . Sent orders for RN, PT, OT via [employer]. Let [facility] know to contact daughter to start homecare. Gave Juliana's number over phone, plus number was sent in [employer]. Pt. to d/c today to daughter with homecare. Date Signed: 11/20/2016 12:01 PM Electronically Signed By:Bel Waddell LCSW
--- NOTE | 2016-11-20 13:25 | GDS ---
[f rep st] DISCHARGE SUMMARY DISCHARGE DIAGNOSES: 1. Transient ischemic attack. 2. Chronic systolic congestive heart failure. 3. Dementia. 4. Diabetes mellitus type 2. CONSULTATIONS: 1. Cardiology. 2. Neurology. STUDIES AND PROCEDURES DONE: 1. CT of the head. 2. CT of the cervical spine. 3. CT angio of the head and neck. 4. Echocardiogram. PHYSICAL EXAM: GENERAL: The patient is alert. VITAL SIGNS: Afebrile at 36.6, pulse is 76, respira tory rate is 23, blood pressure is 138/76. He is saturating 96% on 2 L. I have seen and evaluated t he patient on the day of discharge. HOSPITAL COURSE: The patient is a 76-year-old male who presented to the emergency room with complain ts of double vision. He was evaluated and diagnosed with: 1. TIA. During this hospitalization, he received a consultation from Neurology as well as thorough evaluation. MRI of the brain was unable to be performed as the patient does have a permanent pacemak er. The patient will continue his aspirin as well as Plavix and statin at the time of disposition an d follow up with Dr. Parra in the outpatient setting. 2. Chronic systolic congestive heart failure. He was evaluated by Cardiology during this hospital c ourse. Echocardiogram demonstrated an ejection fraction of 35%. 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 3. Dementia. The patient is at his baseline mentation. 4. Diabetes mellitus type 2. He will continue previously prescribed medications. DISPOSITION: The patient will be discharged home with his daughter as well as extensive home health care. He will return to [facility] when he is able, and he will have 24-hour care at home. There are no pending studies. DISCHARGE DIAGNOSES: Acute hypoxemia. The patient will be discharged with supplemental oxygen at th e time of disposition. DISCHARGE MEDICATIONS: Please refer to EMR form. I have not adjusted the patient's previously presc ribed home medications to the best of my knowledge. I spent greater than 35 minutes in the care, coordination, and management of this patient's discharge plan. /[id number]/MODL
--- NOTE | 2016-11-20 13:56 | NEUROPROG ---
Assessment: [id number] CC: Possible stroke Narrative Summary: He has chronic dizziness but noted on 11/18/16 at 1 pm he developed double vision and fell. He possibly also had left leg weakness. He was brought to [facility] . He uses a walker at baseline. He could not get up on his own so he was brought to [facility] and admitted for stroke evaluation. In the ER his double vision had resolved. Tele-neurology evaluated him but did not recommend TPA. A TTE in July 2016 showed reduced EF of 30%, old apical infarct, and a pacemaker lead. Also, an echodensity was also seen so a vegetation cannot be ruled out. I initially saw him on 11/19/16. He reported his double vision and left leg weakness had resolved and he felt back to normal. HPI: F/U 11/20/16. No new neurologic complaints. Pt doing well. PMHx: CAD, dementia, DM, V-tach post AICD ablation, pacemaker, neuropathy, ischemic cardiomyopathy, KAILEY, HLD, Hep C, BPH, recent SDH in June 2016 from anticoagulation, history of rectus femoris hematoma from falls PSHx: PCI heart, AICD placement, cardiac ablation, SHx: lives at assisted living, uses walker, no tobacco FHx: 3 daughters alive ROS: Pt denied acute fever, total vision loss, active severe chest pain, respiratory failure, total body severe rash, total bowel/bladder incontinence, psychosis, active seizures, or active bleeding O: - NIH SS 0 Labs: 11/19/16- LDL 50L Rads: 11/18/16- Head CT: No acute intracranial hemorrhage or evidence of evolving cortical ischemia. No change since six hours prior. 11/18/16- CTA head/neck: No acute changes 11/18/16- TTE: no cardiac thrombus seen 11/18/16- 24 hour telemetry: no afib seen Assessment: 1. Probable TIA or small stroke causing Transient double vision, dizziness, left leg weakness: Possible stroke but cannot get brain MRI due to pacemaker. CTA head/neck and TTE showed no cause for stroke. Will continue asa/plavix and statin and get outpatient nursing educator. 2. Falls Risk 3. Dementia 4. DM 5. CAD 6. History of SDH Plan: - Cannot have brain MRI due to pacemaker - Blood pressure < 220/120 x 24 hours then < 140/90 - H1AC goal < 7.0 - LDL goal < 70 (50), continue current statin - Continue aspirin qd and plavix 75 mg qd - PT/OT/Speech consulted - Outpatient nursing educator planned - F/U in neurology clinic 4 weeks after discharge Neurology will sign off but will happy to get re-involved if needed. 35 min spent with patient, majority of time spent counseling on possible stroke and treatment options. Objective: Vital Signs Temp Pulse Resp BP Pulse Ox 36.6 C 76 23 H 138/76 H 85 L 11/20/16 07:29 11/20/16 07:29 11/20/16 07:29 11/20/16 07:29 11/20/16 07:29 Laboratory Results 11/19/16 04:35 11/19/16 04:35 11/19/16 11/20/16 11/21/16 05:59 05:59 05:59 Intake Total 1750 750 Output Total 750 200 Balance 1000 750 -200 PT 13.7 SEC (12.0-15.0) 11/18/16 16:50 INR 1.06 (0.83-1.16) 11/18/16 16:50 Allergies/Adverse Reactions: Sulfa (Sulfonamide Antibiotics) Allergy (Intermediate, Verified 07/19/16 12:31)
--- NOTE | 2016-11-20 17:24 | ASDISCHSUM ---
Discharge Information Plan Status:Home with Home Health Medically Cleared to Leave: Discharge Date:11/20/2016 12:14 PM CM D/C Disposition:Home Health Service ADT D/C Disposition:[id number] Projected Discharge Date:11/20/2016 05:00 AM Transportation at D/C:Family Discharge Delay Reason: Follow-Up Date:11/20/2016 05:00 AM Discharge Slot: Final Diagnosis: Placement Information Referral Type:*Home Health Care Services Referral ID:[id number] Provider Name:[facility] Address 1:[address] [address] Address 2: City:[place] Selection Factors: State:[place] Patient Contact Information Contact Name:KYLEIGH Relationship:Daughter Address:[facility] [place][note 2][address] [facility] City:[place] Alternate Phone: State/Zip Code:[place] [address] Email: Financial Information Financial Class: Primary Plan Desc:MEDICARE OUTPATIENT Primary Plan Number:[id number] Secondary Plan Desc:[employer]/[facility] SUPP[facility] Secondary Plan Number:[id number] Assessment Information [facility] CM Progress Note CM Note CM Note Notes: Chart reviewed. Met with patient to review dc POC. He currently lives at [facility] with [facility]. He was at [facility] alone and had a fall and stroke symptoms mainly double vision. These symptoms have resolved. He is for further testing. Per OT and patients self reported increasing reliance on walker they reccomend SNF, PT pending. Patient not receptive to idea of SNF as he has a pet dog at home. He is alert and oriented at this time. He reports he has 3 daughters in the area and one of them if reportedly his POA. CM to follow. Date Signed: 11/19/2016 12:18 PM Electronically Signed By:Melanie López RN [facility] CM Progress Note CM Note CM Note Notes: Spoke with MD regarding patient status. He is at baseline per neuro .Call to [facility] where pt resides and they are requiring patient have 24 hour care for undetermined amount of time given his recent falls and hospital visit. Conveyed to family this information and provided them with available choices to secure Private care, choose a SNF or have family provide 24 hour care. The daughters elected to provide 24 hour care with patient going to daughter's home in [place]. Information regarding address [address] [place] [id number] sent with referral to [facility]. Spoke to Susana at [facility] to confirm information recieved. Faxed a hard copy as well awaiting final dc order. Date Signed: 11/19/2016 04:12 PM Electronically Signed By:Melanie López RN [facility] CM Progress Note CM Note CM Note Notes: Spoke w/ daughterJuliana twice today on phone. Juliana plans to take Pt. home "for a few days" and then have him go back to [facility]. [facility] asking that Pt. have 24-hour care if he returns there. PT recommending 24-hour care as well. Judson contacted pre-existing home care agency, [facility] . Sent orders for RN, PT, OT via [employer]. Let [facility] know to contact daughter to start homecare. Gave Juliana's number over phone, plus number was sent in [employer]. Pt. to d/c today to daughter with homecare. Date Signed: 11/20/2016 12:01 PM Electronically Signed By:Bel Waddell LCSW Intervention Information Intervention Type:*Incorrect Registration Date of Service:11/19/2016 11:36 AM Patient Type:Observation Staff Member:PIO Arroyo Susan Hours: Discipline: Severity: Comment:
== END 2016-11-20 12:14 | disposition home health service (06) | DRG 69 ==
LOC: EDUNIT# → OBSVTOIN 18:23 → F3N 20:20
PROVIDERS: ADMIT Internal Medicine; ATTEND Internal Medicine
DX: G45.9 Transient cerebral ischemic attack, unspecified (principal); I50.22 Chronic systolic (congestive) heart failure; F03.90 Unspecified dementia, unspecified severity, without behavioral disturbance, psychotic disturbance, mood disturbance, and anxiety; E11.9 Type 2 diabetes mellitus without complications; G62.9 Polyneuropathy, unspecified; E03.9 Hypothyroidism, unspecified; I25.5 Ischemic cardiomyopathy; G47.33 Obstructive sleep apnea (adult) (pediatric); N40.0 Benign prostatic hyperplasia without lower urinary tract symptoms; E78.5 Hyperlipidemia, unspecified; W01.0XXA Fall on same level from slipping, tripping and stumbling without subsequent striking against object, initial encounter; Z95.810 Presence of automatic (implantable) cardiac defibrillator; Z87.891 Personal history of nicotine dependence; Z23 Encounter for immunization
CPT/HCPCS: 82947-QW; 92523-GN; 97116-GP; 97161-GP; 97166-GO; 97530-GP; 97535-GO; G0008; G8978-GP-CJ; G8979-GP-CI; G8980-GP-CI; G8987-GO-CI; G8988-GO-CI; G9165-GN-CI; G9166-GN-CI; G9167-GN-CI; J1815; Q9957; Q9967

== ENCOUNTER → 2017-07-18 | Outpatient (CLI) | payer OTHER, MEDICARE | LOC: BHFA 11:30 | PROVIDERS: ATTEND Internal Medicine Cardiovascular Disease | DX: I35.1 Nonrheumatic aortic (valve) insufficiency (principal) ==

== ENCOUNTER → 2018-03-23 | Outpatient (CLI) | payer OTHER, MEDICARE | LOC: BHFA 09:00 | PROVIDERS: ATTEND Internal Medicine Cardiovascular Disease | DX: R07.9 Chest pain, unspecified (principal); I25.10 Atherosclerotic heart disease of native coronary artery without angina pectoris | CPT/HCPCS: 78452; 93017; A9500; J2785 ==

== ENCOUNTER → 2018-04-24 | Outpatient (CLI) | payer OTHER, MEDICARE | LOC: BHFA 15:30 | PROVIDERS: ATTEND Internal Medicine Cardiovascular Disease | DX: I50.9 Heart failure, unspecified (principal) ==

== ENCOUNTER 2018-04-25 19:28 | Emergency (ER) | payer OTHER, MEDICARE ==
--- NOTE | 2018-04-25 19:43 | EDPHY ---
H & P Stated Complaint: mechanical fall, left sided pain Source: Patient Exam Limitations: No limitations - Medical/Surgical History Hx Asthma: No Hx Chronic Respiratory Disease: No Hx Diabetes: No Hx Cardiac Disease: Yes Hx Renal Disease: No Hx Cirrhosis: No Hx Alcoholism: No Hx HIV/AIDS: No Hx Splenectomy or Spleen Trauma: No Other PMH: Cardiac disease, hyperthyroid, open heart surgery, hernia repair, hep C, sciatic pain, DM2, psoriasis, - Social History Smoking Status: Former smoker Time Seen by Provider: 04/25/18 19:43 HPI/ROS: CHIEF COMPLAINT: Left chest wall, left flank and abdominal pain following mechanical fall last night HISTORY OF PRESENT ILLNESS: The patient presents to the ED after he had a mechanical fall at home last night. The patient struck his left flank on a bedpost. The patient did not hit his head or lose consciousness. He has no complaints of headache or neck pain. He complains of left posterior rib pain, left flank pain and left mid abdominal pain. The patient does take Plavix. He is not on anticoagulants. He has been ambulatory today without any lower extremity traumatic complaints. The patient reports that his symptoms are moderate in nature and worsened with movement. REVIEW OF SYSTEMS: A comprehensive 10 point review of systems is otherwise negative aside from elements mentioned in the history of present illness. (Koby Gates) - Physical Exam Exam: General Appearance: Alert, no distress Head: Atraumatic Eyes: Pupils equal, round, reactive ENT, Mouth: No hemotympanum, no oral trauma Neck: Nontender, trachea midline Respiratory: Tenderness to palpation left posterior ribs, no subcutaneous air Cardiovascular: Regular rate and rhythm Abdomen: Tenderness to palpation left upper quadrant, tenderness to palpation left flank Skin: No lacerations, No abrasion Back: No midline T/L/S pain Extremities: Nontender, full range of motion Neurological: A&Ox3, normal motor function, normal sensory exam (Koby Gates) Constitutional: Initial Vital Signs Temperature (C) 36.6 C 04/25/18 19:34 Heart Rate 79 04/25/18 19:34 Respiratory Rate 18 04/25/18 19:34 Blood Pressure 155/96 H 04/25/18 19:34 O2 Sat (%) 99 04/25/18 19:34 O2 Delivery Mode Room Air O2 (L/minute) 2 Allergies/Adverse Reactions: Sulfa (Sulfonamide Antibiotics) Allergy (Intermediate, Verified 04/25/18 19:34) Home Medications: Medication Instructions Recorded Ranitidine HCl [Ranitidine HCl 150 300 mg PO BID 04/18/11 mg] Aspirin [Aspirin 325 mg (*)] 325 mg PO DAILY 06/15/16 Cholecalciferol Vit D3 [Vitamin D3 2,000 units PO DAILY #0 each 07/06/16 2000 units tab (OTC)] Cyanocobalamin [Vitamin B12 (*)] 1,000 mcg PO DAILY #0 tab 07/06/16 DULoxetine [Cymbalta 60 MG (*)] 60 mg PO DAILY #30 cap 07/06/16 Gabapentin [Neurontin 300 MG (*)] 300 mg PO BID@07,15 #60 cap 07/06/16 Gabapentin [Neurontin 300 MG (*)] 600 mg PO HS #30 cap 07/06/16 Rosuvastatin Calcium [Crestor 40mg 40 mg PO DAILY@17 #30 tab 07/06/16 (*)] Sotalol HCl [Betapace 80 MG (*)] 80 mg PO BID #60 tab 07/06/16 Acetaminophen [Tylenol ES 500 mg 1,000 mg PO Q8H PRN 11/09/16 (*)] Ascorbic Acid [Vitamin C 500 mg 1,000 mg PO DAILY 11/09/16 (*)] Clobetasol 0.05% [Temovate Topical 1 maynor TP DAILY PRN 11/09/16 Solution] DULoxetine [Cymbalta 30 MG (*)] 30 mg PO HS 11/09/16 Donepezil HCl [Aricept 5 MG (*)] 5 mg PO DAILY 11/09/16 Fesoterodine Fumarate [Toviaz (*)] 4 mg PO DAILY PRN 11/09/16 Levalbuterol Inhaler [Xopenex Hfa 1 puffs IH TID PRN 11/09/16 Inhaler (*)] Levothyroxine [Synthroid 88 mcg 88 mcg PO DAILY06 11/09/16 (*)] Mbx Soln;Maalox/Diphen/Lido 5 ml PO PRN PRN 11/09/16 [Maalox/Diphenhydramine/Lido] Nitroglycerin [Nitrostat 0.4 mg 0.4 mg SL Q5M PRN 11/09/16 (*)] [place]-3 Fatty Acids [Fish Oil 1000 1,000 mg PO DAILY 11/09/16 mg (*)] Tetrahydrozoline 0.05% [Visine (*)] 1 drop OP DAILY PRN 11/09/16 clonazePAM [CLONAZEPAM] 0.25 mg PO HS 11/09/16 lamoTRIgine [LamICTAL 100 MG (*)] 100 mg PO HS 11/09/16 traMADol [Ultram 50 mg (*)] 50 mg PO DAILY PRN 11/09/16 traMADol [Ultram 50 mg (*)] 50 mg PO TID 11/09/16 Clopidogrel Bisulfate [Plavix (*)] 75 mg PO HS 11/18/16 Medical Decision Making ED Course/Re-evaluation: Patient is an elderly male who presents to the ED with a left flank contusion and rib pain following mechanical fall yesterday. Given his tenderness in age a CT scan of the chest abdomen pelvis will be obtained. The patient is turned over to Dr. Desir at shift change pending CT. (Koby Gates) Patient was signed out to me at change of shift by Dr. Gates. CT of the chest, abdomen and pelvis: Please refer the dictated report by Dr. Davis. Patient has a left 9th and 10th buckle rib fracture. There nondisplaced. There is no pneumothorax or effusion. Normal aorta. There is also a right anterior 2nd rib fracture. Normal abdomen and pelvis. I discussed the results with the patient. I answered all his questions. On recheck the patient had no respiratory distress. His abdomen was benign. Patient was given instruction incentive spirometry and given an incentive spirometer. He was given warnings prior to leaving. (Ronel Desir) Differential Diagnosis: Differential diagnosis considered includes rib fracture, pneumothorax, splenic injury, renal injury (Koby Gates) - Data Points Laboratory Results: 04/25/18 20:16 POC Hgb 17.0 gm/dL gm/dL (13.7-17.5) POC Hct 50 % % (40-51) POC Sodium 140 mEq/L mEq/L (135-145) POC Potassium 3.8 mEq/L mEq/L (3.3-5.0) POC Chloride 99 mEq/L mEq/L (97-110) POC Total CO2 27 mEq/L mEq/L (22-31) POC BUN 18 mg/dL mg/dL (7-23) POC Creatinine 1.1 mg/dL mg/dL (0.7-1.3) POC Glucose 107 mg/dL H mg/dL (70-100) Point of Care Test Results: Chemistry 04/25/18 20:16 POC Sodium 140 mEq/L mEq/L (135-145) POC Potassium 3.8 mEq/L mEq/L (3.3-5.0) POC Chloride 99 mEq/L mEq/L (97-110) POC Total CO2 27 mEq/L mEq/L (22-31) POC BUN 18 mg/dL mg/dL (7-23) POC Creatinine 1.1 mg/dL mg/dL (0.7-1.3) POC Glucose 107 mg/dL H mg/dL (70-100) ISTAT H&H 04/25/18 20:16 POC Hgb 17.0 gm/dL gm/dL (13.7-17.5) POC Hct 50 % % (40-51) Departure - Departure Disposition: Home, Routine, Self-Care Clinical Impression: Fall Rib fractures Qualifiers: Encounter type: initial encounter Rib fracture type: multiple ribs Fracture type: closed Laterality: left Qualified Code(s): S22.42XA - Multiple fractures of ribs, left side, initial encounter for closed fracture Condition: Good Instructions: Fall Prevention (ED), Rib Fracture (ED) Additional Instructions: You have multiple rib fractures. Use your incentive spirometer 5 times daily. Return with increasing pain, fever, shortness of breath or any other concerns. Referrals: Rosemary Ayala MD [Primary Care Provider] - 5-7 days, call for appt.
[2018-04-25] MEDS ORDERED: IOPAMIDOL (ISOVUE-300) 100 ML BTL ONE (20:43)
[2018-04-25 22:17] VITALS: BP 140/78
== END 2018-04-25 22:11 | disposition home or self-care (01) ==
DX: S22.42XA Multiple fractures of ribs, left side, initial encounter for closed fracture (principal); W06.XXXA Fall from bed, initial encounter; Y92.003 Bedroom of unspecified non-institutional (private) residence as the place of occurrence of the external cause; E11.9 Type 2 diabetes mellitus without complications; B19.20 Unspecified viral hepatitis C without hepatic coma; Z79.4 Long term (current) use of insulin
CPT/HCPCS: 71260; 74177; 99285; Q9967; 82435-PO; 82565-PO; 82947-PO; 84132-PO; 84295-PO; 84520-PO; 85014-ER

== ENCOUNTER → 2018-04-29 | Emergency (ER) | payer OTHER, MEDICARE ==
[~2018-04-29] MED LIST: ACETAMINOPHEN 500 MG TAB PO ONE
--- NOTE | 2018-04-29 17:24 | EDPHY ---
H & P Stated Complaint: PT. states inital left rib injury last tue, today grabbed onto railing,pain Time Seen by Provider: 04/29/18 17:01 HPI/ROS: CHIEF COMPLAINT: Left-sided rib pain HISTORY OF PRESENT ILLNESS: Patient is an 78-year-old man who fell 5 days ago onto his bed post. He was seen in the emergency department and had a CT scan of the chest and abdomen. He is found to have buckle fractures of ribs 8 & 9. No pneumothorax. No splenic injury. He states that he has been doing well and feeling better until today when he missed a step while walking down the stairs and had to grab on the hand rail abruptly with his left hand to catch himself. He felt a strain in his left anterior rib area and has had gradually increasing pain since then. No difficulty breathing. No fever. No productive cough. No other injuries. No shoulder or elbow pain. No abdominal pain, no lightheadedness or dizziness. Severity: Mild Modifying factors: Worsened by palpation, improved with Tylenol REVIEW OF SYSTEMS: Constitutional: denies: chills, fever, recent illness, recent injury EENTM: denies: blurred vision, double vision, nose congestion Respiratory: denies: cough, shortness of breath Cardiac: denies: chest pain, irregular heart rate, lightheadedness, palpitations Gastrointestinal/Abdominal: denies: abdominal pain, diarrhea, nausea, vomiting, blood streaked stools Genitourinary: denies: dysuria, frequency, hematuria, pain Musculoskeletal: see HPI Skin: denies: lesions, rash, jaundice, bruising Neurological: denies: headache, numbness, paresthesia, tingling, dizziness, weakness Hematologic/Lymphatic: denies: blood clots, easy bleeding, easy bruising Immunologic/allergic: denies: HIV/AIDS, transplant 10 systems reviewed and negative except as noted EXAM: GENERAL: Well-appearing, well-nourished and in no acute distress. HEAD: Atraumatic, normocephalic. EYES: Pupils equal round and reactive to light, extraocular movements intact, sclera anicteric, conjunctiva are normal. ENT: TMs normal, nares patent, oropharynx clear without exudates. Moist mucous membranes. NECK: Normal range of motion, supple without lymphadenopathy or JVD. LUNGS: Left anterior rib tenderness. No pleuritic pain Breath sounds clear to auscultation bilaterally and equal. No wheezes rales or rhonchi. HEART: Regular rate and rhythm without murmurs, rubs or gallops. ABDOMEN: Soft, nontender, normoactive bowel sounds. No guarding, no rebound. No masses appreciated. No splenic tenderness. BACK: No CVA tenderness, no spinal tenderness, step-offs or deformities EXTREMITIES: Normal range of motion, no pitting or edema. No clubbing or cyanosis. NEUROLOGICAL: Cranial nerves II through XII grossly intact. Normal speech, normal gait. 5/5 strength, normal movement in all extremities, normal sensation , normal reflexes PSYCH: Normal mood, normal affect. SKIN: Warm, dry, normal turgor, no visible rashes or lesions. Source: Patient Exam Limitations: No limitations - Personal History Current Tetanus Diphtheria and Acellular Pertussis (TDAP): Unsure - Medical/Surgical History Hx Asthma: No Hx Chronic Respiratory Disease: No Hx Diabetes: No Hx Cardiac Disease: Yes Hx Renal Disease: No Hx Cirrhosis: No Hx Alcoholism: No Hx HIV/AIDS: No Hx Splenectomy or Spleen Trauma: No Other PMH: Cardiac disease, hyperthyroid, open heart surgery, hernia repair, hep C, sciatic pain, DM2, psoriasis, - Family History Significant Family History: No pertinent family hx - Social History Smoking Status: Former smoker Alcohol Use: None Constitutional: Initial Vital Signs Temperature (C) 36.3 C 04/29/18 16:40 Heart Rate 77 04/29/18 16:40 Respiratory Rate 18 04/29/18 16:40 Blood Pressure 152/81 H 04/29/18 16:40 O2 Sat (%) 100 04/29/18 16:40 O2 Delivery Mode Nasal Cannula O2 (L/minute) 2 Allergies/Adverse Reactions: Sulfa (Sulfonamide Antibiotics) Allergy (Intermediate, Verified 04/29/18 16:39) Home Medications: Medication Instructions Recorded Ranitidine HCl [Ranitidine HCl 150 300 mg PO BID 04/18/11 mg] Aspirin [Aspirin 325 mg (*)] 325 mg PO DAILY 06/15/16 Cholecalciferol Vit D3 [Vitamin D3 2,000 units PO DAILY #0 each 07/06/16 2000 units tab (OTC)] Cyanocobalamin [Vitamin B12 (*)] 1,000 mcg PO DAILY #0 tab 07/06/16 DULoxetine [Cymbalta 60 MG (*)] 60 mg PO DAILY #30 cap 07/06/16 Gabapentin [Neurontin 300 MG (*)] 300 mg PO BID@07,15 #60 cap 07/06/16 Gabapentin [Neurontin 300 MG (*)] 600 mg PO HS #30 cap 07/06/16 Sotalol HCl [Betapace 80 MG (*)] 80 mg PO BID #60 tab 07/06/16 Acetaminophen [Tylenol ES 500 mg 1,000 mg PO Q8H PRN 11/09/16 (*)] Ascorbic Acid [Vitamin C 500 mg 1,000 mg PO DAILY 11/09/16 (*)] DULoxetine [Cymbalta 30 MG (*)] 30 mg PO HS 11/09/16 Levothyroxine [Synthroid 88 mcg 88 mcg PO DAILY06 11/09/16 (*)] Nitroglycerin [Nitrostat 0.4 mg 0.4 mg SL Q5M PRN 11/09/16 (*)] Mobile-3 Fatty Acids [Fish Oil 1000 1,000 mg PO DAILY 11/09/16 mg (*)] Tetrahydrozoline 0.05% [Visine (*)] 1 drop OP DAILY PRN 11/09/16 clonazePAM [CLONAZEPAM] 0.25 mg PO HS 11/09/16 lamoTRIgine [LamICTAL 100 MG (*)] 100 mg PO HS 11/09/16 traMADol [Ultram 50 mg (*)] 50 mg PO DAILY PRN 11/09/16 traMADol [Ultram 50 mg (*)] 50 mg PO TID 11/09/16 Clopidogrel Bisulfate [Plavix (*)] 75 mg PO HS 11/18/16 Medical Decision Making - Diagnostics Imaging Results: Imaging Impressions Chest X-Ray 04/29/18 17:07 Impression: 1. Increase in atelectasis at the left base. Imaging: Discussed imaging studies w/ chief administrative officer Radiologist ED Course/Re-evaluation: No visible fractures, no pneumothorax seen on x-ray. Patient feels much relieved. His pain is controlled with Tylenol alone. We discussed possibly taking ibuprofen as well as needed. He is eager to go home and declines further workup or testing. He is on his baseline oxygen supplementation. We did encourage incentive spirometry. Differential Diagnosis: Partial list of the Differential diagnosis considered include but were not limited to; muscle strain, rib fracture, contusion and although unlikely based on the history and physical exam, I also considered rib displacement, pneumothorax, pneumonia, PE. I discussed these differential diagnoses and the plan with the patient as well as the usual and expected course. The patient understands that the diagnosis is provisional and that in medicine we are not always correct and that further workup is often warranted. Usual and customary warnings were given. All of the patient's questions were answered. The patient was instructed to return to the emergency department should the symptoms at all worsen or return, otherwise to followup with the physician as we discussed. - Data Points Medications Given: Discontinued Medications Acetaminophen (Tylenol) 1,000 mg PO EDNOW ONE Stop: 04/29/18 17:26 Last Admin: 04/29/18 17:28 Dose: 1,000 mg Departure - Departure Disposition: Home, Routine, Self-Care Clinical Impression: Rib pain on left side Condition: Fair Instructions: Rib Fracture (ED) Referrals: Rosemary Ayala MD [Primary Care Provider] - As per Instructions
[2018-04-29 18:40] VITALS: BP 115/70
== END | disposition home or self-care (01) ==
LOC: CED 16:30
DX: R07.81 Pleurodynia (principal); J98.11 Atelectasis; M54.30 Sciatica, unspecified side; E11.9 Type 2 diabetes mellitus without complications; Z87.891 Personal history of nicotine dependence; Z88.2 Allergy status to sulfonamides
CPT/HCPCS: 71046-PO; 99283-ER

== ENCOUNTER 2018-05-05 10:25 | Day surgery (SDC) | payer OTHER, MEDICARE ==
[2018-05-05] MEDS ORDERED: diphenhydrAMINE 25 MG CAP PO ONE (10:30)
[2018-05-05] MEDS ORDERED: DIAZEPAM 5 MG TAB PO ONE (10:30)
[2018-05-05] MEDS ORDERED: NS 1,000 ML IV ONE (10:30)
[2018-05-05] MEDS ORDERED: FAMOTIDINE 20 MG TAB PO ONE (10:30)
[2018-05-05] MEDS ORDERED: ASPIRIN EC 325 MG TAB PO ONE (10:30)
--- NOTE | 2018-05-05 10:57 | PDHPUP ---
History & Physical Update H&P update statement: This history and physical update is based on an assessment of the patient which was completed after admission or registration (within 24 hours), but prior to the surgery/procedure. H&P update: H&P reviewed & patient examined, no change in patient's condition since H&P completed
--- NOTE | 2018-05-05 10:58 | PDPROPOC ---
Sedation Plan of Care Sedation Plan of Care: vital signs stable, mental status noted, patient educated of risks, benefits, alternatives, patient can tolerate sedation ASA Classification: ASA 2 Planned drugs: fentanyl, midazolam Mallampati Score: Class 2 Mallampati Reference Image: Patient passed 3-3-2 rule?: Yes
[2018-05-05] MEDS ORDERED: LIDOCAINE 1% 300 MG/30 ML SDV ONE (11:00)
[2018-05-05] MEDS ORDERED: fentaNYL 100 MCG/2 ML INJ ONE (11:00)
[2018-05-05] MEDS ORDERED: MIDAZOLAM 2 MG/2 ML VIAL ONE (11:00)
[2018-05-05] MEDS ORDERED: IOPAMIDOL (ISOVUE-370) 150 ML BTL IV ONE (11:00)
[2018-05-05 11:11] LABS: PLATELET COUNT 283 10^3/uL (150-400)
[2018-05-05 11:27] LABS: PROTIME(PATIENT) 12.8 SEC (12.0-15.0)
--- NOTE | 2018-05-05 12:38 | CPIP ---
[f rep st] INVASIVE CARDIAC PROCEDURE DATE OF PROCEDURE: 05/05/2018 PROCEDURE: Coronary angiography. INDICATION: 1. Known ischemic cardiomyopathy with a recent decline in left ventricular ejection fraction. 2. Congestive heart failure. ACCESS: Patient was prepped and draped in sterile fashion. 1% lidocaine was used to anesthetize the right inguinal region. A 6-Ugandan introducer sheath was placed selectively into the right common fe moral artery via modified Seldinger technique. CORONARY ANGIOGRAPHY: A 6-Ugandan JL4 was advanced to left main coronary artery and images obtained. The left main coronary artery bifurcated into an LAD and circumflex coronary arteries. The left blessing n coronary artery had a distal 25% stenosis present. The left anterior descending coronary artery ga ve rise to the first diagonal branch. Following the first diagonal branch, there is a single discret e total occlusion. The distal vessel is being filled by [id number], as well as epcob-[id number] colla terals. The circumflex coronary artery is a large vessel. The circumflex coronary artery had mild d iffuse disease throughout the worst stenosis was in the ostial segment and that was approximately 30% in severity. The 6-Ugandan JR4 was advanced to the right coronary artery and images obtained. The right coronary a rtery was dominant. The right coronary artery was ectatic in the proximal segment. In the mid segme nt, there was a long segmental 50% stenosis present, and in the distal vessel, ectasia could be seen. The saphenous vein graft to left anterior descending coronary artery was not injected as it was kno wn to be occluded previously. COMPLICATIONS: None. CONCLUSIONS: 1. Occluded left anterior descending coronary artery, unchanged from previous cardiac catheterizatio n. 2. No evidence of significant flow-limiting disease involving the circumflex and right coronary alexy bladimir. /[id number]/MODL
[2018-05-05] MEDS ORDERED: OXYCODONE/APAP 5/325 TAB PO PRN (12:58)
[2018-05-05] MEDS ORDERED: HYDROCODONE/APAP 5/325 TAB PO PRN (12:58)
[2018-05-05] MEDS ORDERED: ATROPINE SULFATE 1 MG/10 ML SYR IVP PRN (12:58)
[2018-05-05] MEDS ORDERED: NITROGLYCERIN 0.4 MG BTL SL PRN (12:58)
[2018-05-05] MEDS ORDERED: POLYETHYLENE GLYCOL 3350 17 GM PKT PO ONE (14:00)
--- NOTE | 2018-05-06 11:53 | CPEKG ---
Test Reason : OPEN Blood Pressure : / mmHG Vent. Rate : 077 BPM Atrial Rate : 077 BPM P-R Int : 267 ms QRS Dur : 149 ms QT Int : 430 ms P-R-T Axes : 248 -80 148 degrees QTc Int : 487 ms Atrial-paced rhythm Nonspecific IVCD with LAD Left ventricular hypertrophy Abnormal T, consider ischemia, lateral leads Unchanged in comparison to prior Confirmed by Jason Miles ([id number]) on 05/06/2018 11:52:57 AM Referred By: Jason Lawson Confirmed By:Jason Miles
== END 2018-05-05 15:22 | disposition home or self-care (01) ==
LOC: FCATH 10:25
PROVIDERS: ATTEND Internal Medicine Cardiovascular Disease
DX: I25.10 Atherosclerotic heart disease of native coronary artery without angina pectoris (principal); I25.5 Ischemic cardiomyopathy; I50.22 Chronic systolic (congestive) heart failure; R26.89 Other abnormalities of gait and mobility; I25.2 Old myocardial infarction; E11.9 Type 2 diabetes mellitus without complications; I11.0 Hypertensive heart disease with heart failure
CPT/HCPCS: C1760; J1644; J2250; J3010; Q9967

== ENCOUNTER 2018-05-25 06:58 | Observation (INO) | payer OTHER, MEDICARE ==
[2018-05-25] MEDS ORDERED: DIAZEPAM 5 MG TAB PO ONE (06:59)
[2018-05-25] MEDS ORDERED: ceFAZolin 2 GM/DEXTROSE 100 ML IV ONE (06:59)
[2018-05-25] MEDS ORDERED: diphenhydrAMINE 25 MG CAP PO ONE (06:59)
[2018-05-25] MEDS ORDERED: NS 1,000 ML IV ONE (06:59)
[2018-05-25] MEDS ORDERED: BACITRACIN IRRIGATION/NS 50,000 UNITS/1,000 ML BTL IRR ONE (06:59)
[2018-05-25 07:54] LABS: PLATELET COUNT 230 10^3/uL (150-400)
[2018-05-25] MEDS ORDERED: BUPIVACAINE 0.75% 10 ML SDV ONE (07:55)
[2018-05-25] MEDS ORDERED: LIDOCAINE 1% 300 MG/30 ML SDV ONE (07:55)
--- NOTE | 2018-05-25 08:03 | PDGENHP ---
History & Physical Chief Complaint: Chronic systolic heart failure History of Present Illness: Chronic systolic heart failure, no targets for revascularization; intraventricular dyssynchrony with LAFB 160ms. Relevant Physical Exam: A+Ox4, RR/NR, no MRG, CTAB, no focal deficits. Cardiorespiratory Assessment: Chronic systolic heart failure -> upgrade from DC ICD to BIV ICD
[2018-05-25 08:07] LABS: INR 0.95 (0.83-1.16); PROTIME(PATIENT) 12.3 SEC (12.0-15.0)
--- NOTE | 2018-05-25 08:17 | PDANEPAE ---
ANE History of Present Illness EF 20% ANE Past Medical History - Cardiovascular History Hx Hypertension: Yes Hx Arrhythmias: Yes Hx Chest Pain: No Hx Coronary Artery / Peripheral Vascular Disease: Yes Hx CHF / Valvular Disease: Yes Hx Palpitations: No Cardiovascular History Comment: EF 20%. CAD - Pulmonary History Hx COPD: No Hx Asthma/Reactive Airway Disease: No Hx Recent Upper Respiratory Infection: No Hx Oxygen in Use at Home: Yes Hx Sleep Apnea: Yes - Neurologic History Hx Cerebrovascular Accident: Yes Hx Seizures: No Hx Dementia: No - Endocrine History Hx Diabetes: Yes Hypothyroid: No Hyperthyroid: No Obesity: no - Liver History Hx Hepatic Disorders: Yes Hepatic History Comment: hep c - Neurological & Psychiatric Hx Hx Neurological and Psychiatric Disorders: Yes - GI History GERD: mild Hx Gastrointestinal Disorders: Yes - Chronic Pain History Chronic Pain: Yes (bilat sciatica) ANE Review of Systems Review of systems is: negative Review of Systems: - Exercise capacity Exercise capacity: <4 METS - Pacemaker Date Pacemaker Last Checked: 11/09/2012 ANE Patient History - Allergies Allergies/Adverse Reactions: Sulfa (Sulfonamide Antibiotics) Allergy (Intermediate, Verified 05/04/18 10:13) Hives - Home Medications Home medications: home medication list seen and reviewed Home Medications: Ranitidine HCl [Ranitidine HCl 150 mg] 300 mg PO BID 04/18/11 [Last Taken ] Aspirin [Aspirin 325 mg (*)] 325 mg PO DAILY 06/15/16 [Last Taken 11/18/16] Ascorbic Acid [Vitamin C 500 mg (*)] 1,000 mg PO DAILY 11/09/16 [Last Taken 01/23] DULoxetine [Cymbalta 30 MG (*)] 30 mg PO HS 11/09/16 [Last Taken 11/17/16] Levothyroxine [Synthroid 88 mcg (*)] 88 mcg PO DAILY06 11/09/16 [Last Taken Unknown] [place]-3 Fatty Acids [Fish Oil 1000 mg (*)] 1,000 mg PO QID 11/09/16 [Last Taken 11/18/16] lamoTRIgine [LamICTAL 100 MG (*)] 100 mg PO BID 11/09/16 [Last Taken 11/17/16] Clopidogrel Bisulfate [Plavix (*)] 75 mg PO HS 11/18/16 [Last Taken 11/17/16] Donepezil HCl [Aricept 5 MG (*)] 5 mg PO HS 05/04/18 [Last Taken Unknown] Lisinopril [Zestril 5 mg (*)] 5 mg PO HS 05/04/18 [Last Taken Unknown] clonazePAM [Klonopin (*)] 0.5 mg PO HS 05/04/18 [Last Taken Unknown] - NPO status NPO Status: no food or drink >8 hours - Anes Hx Anes Hx: post operative nausea and vomiting - Smoking Hx Smoking Status: Former smoker - Family Anes Hx Family Anes Hx: none ANE Labs/Vital Signs - Labs Result Diagrams: 05/25/18 07:20 05/25/18 07:20 - Vital Signs Height: 167.64 cm Weight: 78.018 kg ANE Physical Exam - Airway Neck exam: FROM Mallampati Score: Class 2 Mouth exam: normal dental/mouth exam - Pulmonary Pulmonary: no respiratory distress, clear to auscultation - Cardiovascular Cardiovascular: regular rate and rhythym, no murmur, rub, or gallop - ASA Status ASA Status: IV ANE Anesthesia Plan Anesthesia Plan: general endotracheal anesthesia, GA w LMA, GA with mask, MAC
[2018-05-25] MEDS ORDERED: PROPOFOL/EMULSION 500 MG/50 ML BOTTLE IV ONE (08:20)
[2018-05-25] MEDS ORDERED: IOPAMIDOL (ISOVUE-300) 100 ML BTL ONE (08:26)
[2018-05-25] MEDS ORDERED: fentaNYL 100 MCG/2 ML INJ ONE (08:28)
[2018-05-25] MEDS ORDERED: MIDAZOLAM 2 MG/2 ML VIAL ONE (08:28)
--- NOTE | 2018-05-25 08:43 | CPEKG ---
Test Reason : OPEN Blood Pressure : / mmHG Vent. Rate : 077 BPM Atrial Rate : 077 BPM P-R Int : 281 ms QRS Dur : 150 ms QT Int : 427 ms P-R-T Axes : 103 -78 130 degrees QTc Int : 484 ms Atrial-paced rhythm Nonspecific IVCD with LAD Left ventricular hypertrophy Abnormal T, consider ischemia, lateral leads Confirmed by Claudette Irizarry ([id number]) on 05/25/2018 8:42:47 AM Referred By: Kevon López Confirmed By:Claudette Irizarry
[2018-05-25] MEDS ORDERED: ePHEDrine SULFATE 25 MG/5 ML SYR ONE (10:02)
[2018-05-25] MEDS ORDERED: NALOXONE HCL 0.4 MG/ML INJ IVP PRN (10:52)
--- NOTE | 2018-05-25 10:53 | POSTANESTH ---
Post Anesthetic Evaluation Cardiovascular Status: Normal, Stable Respiratory Status: Normal, Stable Level of Consciousness/Mental Status: Can Participate in Eval Pain Control: Adequate, Prn Tx Ordered Nausea/Vomiting Control: Adequate, Prn Tx Ordered Complications Possibly Related to Anesthesia: None Noted
[2018-05-25] MEDS ORDERED: ACETAMINOPHEN 325 MG TAB PO PRN (11:33)
--- NOTE | 2018-05-25 11:54 | EPPROC ---
Electrophysiology Procedure Note: Date: 05/25/2018 Apparel Rental Clerk: Sky López MD Procedures: Upgrade dual-chamber ICD to biventricular ICD-29710, [id number], [id number] Indications: 78-year-old male with chronic systolic heart failure due to ischemic cardiomyopathy, status post prior implantation of dual-chamber ICD. His LVEF has progressively decreased from the mid 30s to 19%, with no identified targets for revascularization. 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 He is referred for upgrade from dual-chamber ICD to biventricular ICD. Techniques: Following informed consent, the patient was brought to the EP lab in a fasting nonsedated state, in atrial paced rhythm. Preprocedure ICD interrogation was performed, disabling tachy detections, and setting the device to pace a synchronously throughout the procedure. General anesthesia was provided by the anesthesiology service. IV antibiotics were administered. The left anterior chest was prepped and draped in usual sterile fashion. Left upper extremity venogram showed a patent left subclavian/innominate venous system, however there were serial stenoses and significant tortuosity. 1% lidocaine was infiltrated over the chronic ICD site. Cutdown was performed to the chronic pocket (the device was Sound in a submuscular location), and the system was taken out of pocket. Vascular access was obtained with a micropuncture kit. Due to significant tortuosity and serial stenoses in the left innominate vein, a Glidewire was used to navigate the innominate system. The vein was serially dilated, and a 9 Setswana access sheath was inserted. A long CS selector sheath was inserted, and was used to engage the coronary sinus. The access sheath appeared to have sub selected into a ventricular branch. Non selective contrast injection confirmed this; the sheath had sub selected into a large posterolateral branch, which had 3 large 2nd order branches. A DIRECTOR OF IN SERVICE EDUCATION lead was delivered over a coronary wire into the middle branch , which allowed the most lateral location. Pacing and sensing parameters were acceptable in this location, and multiple bi poles showed lack of diaphragm stimulation at high output. The CS selector sheath was slit and the access sheath was peeled. The DIRECTOR [employer] SERVICE EDUCATION lead was anchored to the underlying fascia using 2 nonabsorbable sutures. The DIRECTOR OF [employer] SERVICE EDUCATION lead was connected to the new pulse generator. The old pulse generator was disconnected from the chronic RA and RV leads, which were connected to the new pulse generator. The old pulse generator was taken off the field. The system was placed in the pocket. The pocket was irrigated with antibiotic solution and D Stat hemostatic matrix was injected. The incision was closed in layers using resorbable sutures, and dressed with Steri-Strips. Final fluoroscopy showed stable system position and no evidence of pneumothorax. The patient tolerated the procedure well. Pulse generator: Biotronik [id number], SN [id number], DDDR 70-130 RA lead: Medtronic 5076, SN [id number], implant 04/01/03 3.8mV, 379ohms, 1.0V@0.4ms RV lead: Medtronic 6947, SN [id number], implant 06/08/07 paced, 509ohms, 1.0V@0.4ms LV lead: Biotronik [id number], SN [id number], implant 05/25/18 paced, 1348phms, 0.7V@0.4ms EBL: 20 cc Complications: None Assessment: Successful upgrade of dual-chamber ICD to biventricular ICD Plan: Bedrest 4 hr Chest x-ray and interrogation in a.m. Left upper extremity restrictions for 1 month Keep incision dry for 2 weeks Patient Problems: Problems Problem Status Onset ACS (acute coronary syndrome) Acute CHF (congestive heart failure) Acute Left leg weakness Acute Multiple falls Acute Subdural hematoma Acute Thigh contusion Acute Vision changes Acute Vomiting Acute
[2018-05-25] MEDS: HYDROCODONE/APAP 5/325 TAB PO PRN ×2 (14:27→20:41)
--- NOTE | 2018-05-25 18:51 | CPEKG ---
Test Reason : OPEN Blood Pressure : / mmHG Vent. Rate : 070 BPM Atrial Rate : 070 BPM P-R Int : 158 ms QRS Dur : 156 ms QT Int : 492 ms P-R-T Axes : 181 148 -64 degrees QTc Int : 531 ms Atrial-ventricular dual-paced rhythm Confirmed by Claudette Irizarry ([id number]) on 05/25/2018 6:50:53 PM Referred By: Kevon López Confirmed By:Claudette Irizarry
[2018-05-25] MEDS: SOTALOL HCL 80 MG TAB PO SCH (20:40)
[2018-05-25] MEDS: FAMOTIDINE 20 MG TAB PO SCH (20:42)
[2018-05-25] MEDS: lamoTRIgine 100 MG TAB PO SCH (20:42)
[2018-05-25] MEDS ORDERED: DONEPEZIL HCL 5 MG TAB PO SCH (21:00)
[2018-05-25] MEDS ORDERED: LISINOPRIL 5 MG TAB PO SCH (21:00)
[2018-05-25] MEDS ORDERED: clonazePAM 0.5 MG TAB PO SCH (21:00)
[2018-05-25] MEDS ORDERED: DULoxetine 30 MG CAP PO SCH (21:00)
[2018-05-26 04:43] LABS: PLATELET COUNT 214 10^3/uL (150-400)
[2018-05-26] MEDS: HYDROCODONE/APAP 5/325 TAB PO PRN (05:30)
[2018-05-26] MEDS ORDERED: LEVOTHYROXINE 88 MCG TAB PO SCH (06:00)
[2018-05-26 07:08] VITALS: BP 119/71
[2018-05-26] MEDS ORDERED: ASPIRIN 325 MG TAB PO SCH (09:00)
[2018-05-26] MEDS ORDERED: DULoxetine 60 MG CAP PO SCH (09:00)
[2018-05-26] MEDS: lamoTRIgine 100 MG TAB PO SCH (09:50)
[2018-05-26] MEDS: FAMOTIDINE 20 MG TAB PO SCH (09:50)
[2018-05-26] MEDS: SOTALOL HCL 80 MG TAB PO SCH (09:50)
--- NOTE | 2018-05-26 11:21 | ASDISCHSUM ---
Discharge Information Plan Status:Home with No Needs Medically Cleared to Leave:05/26/2018 Discharge Date:05/26/2018 CM D/C Disposition:Home, Routine, Self-Care ADT D/C Disposition:Home, Routine, Self-Care Projected Discharge Date:05/26/2018 Transportation at D/C:Family Discharge Delay Reason: Follow-Up Date:05/26/2018 Discharge Slot: Final Diagnosis: Placement Information Patient Contact Information Contact Name:KYLEIGH Relationship:Daughter Address:[address] [place] Alternate Phone: [facility]/Zip Code:[place] [address] Email: Financial Information Financial Class:Medicare Primary Plan Desc:MEDICARE OUTPATIENT Primary Plan Number:[id number] Secondary Plan Desc:MIRNA/JOIE SUPPLEMENT Secondary Plan Number:[id number] Assessment Information LACE LACE Length of stay for Answers: 1 day current admission Acuity / Level of Answers: No Care: Did the patient have an inpatient admission? Comorbidities - select Answers: Congestive heart failure all that apply # of Emergency department Answers: 1-2 visits in the last 6 months Score: 4 Date Signed: 05/26/2018 11:19 AM Electronically Signed By:Imelda Astudillo RN Intervention Information
--- NOTE | 2018-05-26 18:08 | GDS ---
[f rep st] DISCHARGE SUMMARY DISCHARGE DIAGNOSES: 1. Ischemic cardiomyopathy. 2. Prior dual-chamber implantable cardioverter defibrillator. 3. Hypertension. 4. Diabetes. BRIEF HISTORY: This is an 78-year-old man with chronic systolic CHF. He has had a previously implanted dual-chamber ICD. His ejection fraction has decreased over the last few years from the mid 30s to low 20s percent. Decision was made to upgrade to dual-chamber ICD to a biventricular ICD. HOSPITAL COURSE: Dr. López implanted a biventricular ICD with a new LV lead. This is a Tinteo 4046 29. It is programmed DDD CLS at a base rate of 70 beats per minute. On the morning of discharge, there were no sensed P waves , atrial capture was 0.4 V at 0.4 msec. Impedance was 393. R waves were 20 mV RV capture was 0.9 V at 0.4 msec. Lead impedance is 523 ohms. LV capture threshold was 0.5 V at 0.4 msec with a lead impedance of 1174 ohms, demonstrated normal function. He is feeling well this morning with very minimal tenderness. He does have some swelling at the pacemaker pocket site. He has not had any shortness of breath or significant arrhythmias. LABORATORY/IMAGING: Chest x-ray demonstrated no pneumothorax and good pacemaker lead placement. WBC is 6.86 hemoglobin 13.4, hematocrit is 38.8, platelets are 214. Sodium is 134, potassium 3.9, chloride 101, bicarb 26, BUN 14, creatinine 0.8, glucose 137. PHYSICAL EXAM: VITAL SIGNS: Blood pressure is 119/71, pulse is 70, respirations 18, temperature is 36.6, O2 saturation is 97% on 2 L. GENERAL: He is alert and oriented lying in bed, in no acute distress. CARDIAC: Regular rate and rhythm without murmur, rub, or gallop. LUNGS: Clear to auscultation. CHEST: Pacemaker site has lcoj-xo-oaxuhbal pocket swelling. The Steri- Strips are intact with no active bleeding. EXTREMITIES: Warm. No discoloration. DISCHARGE MEDICATIONS: He will continue home medications. He will restart his Plavix in 2 days on Tuesday. DISCHARGE INSTRUCTIONS: Post pacemaker implant activity restrictions were reviewed verbally and he was given written instructions at the time of discharge. FOLLOWUP: He has a followup on June 05 at 2:[address] Lawson. e has a followup for pacemaker and wound check June 08 at 10:30 at [facility]. ADDENDUM Sky López MD - patient seen and case discussed with Ms Waugaman. Serra portions of history/physical/ros/data review were personally performed. Uneventful postprocedure observation, status post upgrade of dual-chamber ICD to biventricular ICD. Postprocedure care and follow-up as above. Of note, there is a small hematoma at the pocket site; I have asked Mr. Lowery to notify us immediately if this becomes enlarged, develops severe tenderness, warmth, discharge from the incision, or if he should develop fevers or chills. /[id number]/MODL MTDD
--- NOTE | 2018-05-27 15:16 | CPEKG ---
Test Reason : OPEN Blood Pressure : / mmHG Vent. Rate : 074 BPM Atrial Rate : 074 BPM P-R Int : 128 ms QRS Dur : 153 ms QT Int : 460 ms P-R-T Axes : 131 145 -60 degrees QTc Int : 511 ms Atrial-ventricular dual-paced rhythm Confirmed by Claudette Irizarry ([id number]) on 05/27/2018 3:16:19 PM Referred By: Kevon López Confirmed By:Cluadette Irizarry
== END 2018-05-26 13:45 | disposition home or self-care (01) ==
LOC: FCATH 06:58 → F2W 10:59
PROVIDERS: ADMIT Internal Medicine Cardiovascular Disease; ATTEND Internal Medicine Cardiovascular Disease
PROC: 0JH608Z Insertion of Defibrillator Generator into Chest Subcutaneous Tissue and Fascia, Open Approach (ICD-10-PCS; principal; 2018-05-25)
PROC: 0JPT0PZ Removal of Cardiac Rhythm Related Device from Trunk Subcutaneous Tissue and Fascia, Open Approach (ICD-10-PCS; principal; 2018-05-25)
PROC: 02HL3KZ Insertion of Defibrillator Lead into Left Ventricle, Percutaneous Approach (ICD-10-PCS; principal; 2018-05-25)
DX: I25.5 Ischemic cardiomyopathy (principal); I44.0 Atrioventricular block, first degree; I11.0 Hypertensive heart disease with heart failure; E11.9 Type 2 diabetes mellitus without complications; I25.10 Atherosclerotic heart disease of native coronary artery without angina pectoris; G47.33 Obstructive sleep apnea (adult) (pediatric); I44.4 Left anterior fascicular block; I50.22 Chronic systolic (congestive) heart failure
CPT/HCPCS: 33225; 33231; 33264; 71046; 93005; A4649; C1731; C1769; C1882; C1900; J0690; J2250; J2270; J2704; J3010; Q9967

== ENCOUNTER 2018-06-13 09:37 | Observation (INO) | payer OTHER, MEDICARE ==
--- NOTE | 2018-06-13 09:53 | EDPHY ---
H & P Time Seen by Provider: 06/13/18 09:51 HPI/ROS: Chief complaint. Chest pain HPI. 78-year-old male presents with chest discomfort that began this morning. He describes as left anterior chest. It feels like it is pinching. No shortness of breath. No fever. Slight cough. No radiation of the discomfort. No change with exertion or breathing. Pacemaker was re-wired on June 08 to increased voltage because of poor ejection fraction. Pacemaker was implanted May 2018. Patient has previous MIs and ischemic cardiomyopathy. No abdominal pain. No unusual leg pain or swelling ROS 10 systems were reviewed and negative with the exception of the elements mentioned in the history of present illness Past Medical/Surgical History: Past medical history coronary artery disease with PR, hypertension, diabetes, ischemic cardiomyopathy, coronary artery bypass graft, pacemaker, diabetes, hep C Social History: Divorce, nonsmoker, no alcohol Smoking Status: Former smoker Physical Exam: General Appearance: Alert well-developed male mild distress. Vital signs are stable Eyes: Pupils equal and round no pallor or injection. ENT, Mouth: Mucous membranes are moist. Respiratory: There are no retractions, lungs are clear to auscultation. Cardiovascular: Regular rate and rhythm. Gastrointestinal: Abdomen is soft and nontender, no masses, bowel sounds normal. Neurological: Awake and alert, sensory and motor exams grossly normal. Skin: Warm and dry, no rashes. Pacer site looks like it is healing. No evidence for infection Musculoskeletal: Neck is supple nontender. Extremities symmetrical, full range of motion. Psychiatric: Patient is oriented X 3, there is no agitation. Constitutional: Initial Vital Signs Temperature (C) 36.7 C 06/13/18 09:43 Heart Rate 86 06/13/18 09:43 Respiratory Rate 16 06/13/18 09:43 Blood Pressure 146/81 H 06/13/18 09:43 O2 Sat (%) 97 06/13/18 09:43 O2 Delivery Mode Nasal Cannula O2 (L/minute) 3 Allergies/Adverse Reactions: Sulfa (Sulfonamide Antibiotics) Allergy (Intermediate, Verified 05/04/18 10:13) Hives Home Medications: Medication Instructions Recorded Ranitidine HCl [Ranitidine HCl 150 300 mg PO BID 04/18/11 mg] Aspirin [Aspirin 325 mg (*)] 325 mg PO DAILY 06/15/16 Cholecalciferol Vit D3 [Vitamin D3 2,000 units PO DAILY #0 each 07/06/16 2000 units tab (OTC)] Cyanocobalamin [Vitamin B12 (*)] 1,000 mcg PO DAILY #0 tab 07/06/16 DULoxetine [Cymbalta 60 MG (*)] 60 mg PO DAILY #30 cap 07/06/16 Sotalol HCl [Betapace 80 MG (*)] 80 mg PO BID #60 tab 07/06/16 Ascorbic Acid [Vitamin C 500 mg 1,000 mg PO DAILY 11/09/16 (*)] DULoxetine [Cymbalta 30 MG (*)] 30 mg PO HS 11/09/16 Levothyroxine [Synthroid 88 mcg 88 mcg PO DAILY06 11/09/16 (*)] [place]-3 Fatty Acids [Fish Oil 1000 1,000 mg PO QID 11/09/16 mg (*)] lamoTRIgine [LamICTAL 100 MG (*)] 100 mg PO BID 11/09/16 Donepezil HCl [Aricept 5 MG (*)] 5 mg PO HS 05/04/18 Lisinopril [Zestril 5 mg (*)] 5 mg PO HS 05/04/18 clonazePAM [Klonopin (*)] 0.5 mg PO HS 05/04/18 Acetaminophen [Tylenol 325mg (*)] 650 mg PO Q6HRS PRN tab 05/26/18 Clopidogrel Bisulfate [Plavix (*)] 75 mg PO HS #0 05/26/18 Medical Decision Making - Diagnostics EKG Interpretation: EKG interpreted by me shows paced rhythm with normal axis. Interventricular conduction delay. Appears to be slight ST elevation in leads V2 and V3. No arrhythmia. The rate is 85 some change from previous EKG in May 2018 Procedures: IV normal saline, monitor ED Course/Re-evaluation: Re-evaluation at 10:30 a.m.. Patient is stable. He and I discussed imaging lab EKG findings. We discussed treatment plan including recommendation for admission. He expresses understanding and agreement I consulted discussed case with Cardiology as the patient does appear to have new slight ST elevation in anterior septal leads. They will review his EKG and see the patient in consultation as they just saw him a few days ago for pacemaker upgrade. I consulted discussed the case with Dr. Boone, hospitalist, who agrees to the admission Differential Diagnosis: 78-year-old male with known heart disease. Recent increase in pacer voltage 3 days ago. Now chest pain. Some EKG changes. Troponin normal. - Data Points Laboratory Results: Laboratory Results 06/13/18 09:57 06/13/18 09:57 06/13/18 06/13/18 06/13/18 10:00 09:57 09:57 WBC RBC Hgb Hct MCV MCH MCHC RDW Plt Count MPV Neut % (Auto) Lymph % (Auto) [place] % (Auto) Eos % (Auto) Baso % (Auto) Nucleat RBC Rel Count Absolute Neuts (auto) Absolute Lymphs (auto) Absolute Monos (auto) Absolute Eos (auto) Absolute Basos (auto) Absolute Nucleated RBC Immature Gran % Immature Gran # PT 12.2 SEC SEC (12.0-15.0) INR 0.94 (0.83-1.16) APTT 27.9 SEC SEC (23.0-38.0) Sodium 134 mEq/L L mEq/L (135-145) Potassium 3.8 mEq/L mEq/L (3.5-5.2) Chloride 98 mEq/L mEq/L (97-110) Carbon Dioxide 27 mEq/l mEq/l (22-31) Anion Gap 9 mEq/L mEq/L (6-14) BUN 14 mg/dL mg/dL (7-23) Creatinine 0.8 mg/dL mg/dL (0.7-1.3) Estimated GFR > 60 Glucose 106 mg/dL H mg/dL (70-100) Calcium 9.5 mg/dL mg/dL (8.5-10.4) POC Troponin I 0.03 ng/mL ng/mL (0.00-0.08) NT-Pro-B Natriuret Pep 2160 pg/mL H pg/mL (0-450) 06/13/18 09:57 WBC 11.53 10^3/uL H 10^3/uL (3.80-9.50) RBC 4.91 10^6/uL 10^6/uL (4.40-6.38) Hgb 16.1 g/dL g/dL (13.7-17.5) Hct 46.3 % % (40.0-51.0) MCV 94.3 fL fL (81.5-99.8) MCH 32.8 pg pg (27.9-34.1) MCHC 34.8 g/dL g/dL (32.4-36.7) RDW 12.6 % % (11.5-15.2) Plt Count 249 10^3/uL 10^3/uL (150-400) MPV 8.8 fL fL (8.7-11.7) Neut % (Auto) 71.0 % % (39.3-74.2) Lymph % (Auto) 16.8 % % (15.0-45.0) [place] % (Auto) 9.8 % % (4.5-13.0) Eos % (Auto) 1.8 % % (0.6-7.6) Baso % (Auto) 0.3 % % (0.3-1.7) Nucleat RBC Rel Count 0.0 % % (0.0-0.2) Absolute Neuts (auto) 8.19 10^3/uL H 10^3/uL (1.70-6.50) Absolute Lymphs (auto) 1.94 10^3/uL 10^3/uL (1.00-3.00) Absolute Monos (auto) 1.13 10^3/uL H 10^3/uL (0.30-0.80) Absolute Eos (auto) 0.21 10^3/uL 10^3/uL (0.03-0.40) Absolute Basos (auto) 0.03 10^3/uL 10^3/uL (0.02-0.10) Absolute Nucleated RBC 0.00 10^3/uL 10^3/uL (0-0.01) Immature Gran % 0.3 % % (0.0-1.1) Immature Gran # 0.03 10^3/uL 10^3/uL (0.00-0.10) PT INR APTT Sodium Potassium Chloride Carbon Dioxide Anion Gap BUN Creatinine Estimated GFR Glucose Calcium POC Troponin I NT-Pro-B Natriuret Pep Point of Care Test Results: Chemistry 06/13/18 10:00 POC Troponin I 0.03 ng/mL ng/mL (0.00-0.08) Departure - Departure Disposition: [facility] Inpatient Acute Clinical Impression: Chest pain Qualifiers: Chest pain type: unspecified Qualified Code(s): R07.9 - Chest pain, unspecified Condition: Fair
--- NOTE | 2018-06-13 10:05 | CPEKG ---
Test Reason : OPEN Blood Pressure : / mmHG Vent. Rate : 085 BPM Atrial Rate : 085 BPM P-R Int : 188 ms QRS Dur : 147 ms QT Int : 406 ms P-R-T Axes : 000 145 -47 degrees QTc Int : 483 ms Atrial-ventricular dual-paced rhythm Confirmed by Brodie Garcia ([id number]) on 06/13/2018 10:05:24 AM Referred By: PHYSICIAN ED Confirmed By:Brodie Garcia
[2018-06-13 10:08] LABS: PLATELET COUNT 249 10^3/uL (150-400)
[2018-06-13 10:19] LABS: INR 0.94 (0.83-1.16); PROTIME(PATIENT) 12.2 SEC (12.0-15.0)
[2018-06-13] MEDS: POLYETHYLENE GLYCOL 3350 17 GM PKT PO SCH (13:58)
[2018-06-13] MEDS ORDERED: ACETAMINOPHEN 325 MG TAB PO PRN (14:15)
[2018-06-13] MEDS ORDERED: ONDANSETRON DISINTEGRATING 4 MG TAB PO PRN (14:15)
[2018-06-13] MEDS ORDERED: ONDANSETRON 4 MG/2 ML VIAL IVP PRN (14:15)
[2018-06-13] MEDS ORDERED: ZOLPIDEM TARTRATE 5 MG TAB PO PRN (14:17)
--- NOTE | 2018-06-13 15:07 | GHP ---
[f rep st] HISTORY AND PHYSICAL DATE OF ADMISSION: 06/13/2018 The patient is a pleasant 78-year-old gentleman with a history of significant coronary disease, ventr icular fibrillation, AICD with recent pacemaker lead revision, as well as chronic systolic heart fail ure, who presents today with an episode of chest pain. It is unlike his previous episodes of anginal pain. This is associated with burping. It was on the left side of his chest. It did not radiate t o his arm or his jaw. He has not had fever or chills. He has occasional cough productive of sputum, but that has not changed. He is a nonsmoker. He sought care in the ER. He had an uninterpretable EKG secondary to pacer, and a negative troponin. REVIEW OF SYSTEMS: Complete 10-point review of systems was conducted, negative except as noted in th e HPI. PAST MEDICAL HISTORY: 1. Ischemic cardiomyopathy with multiple wall motion abnormalities, EF in the low 20s. 2. Recent biventricular ICD with new LV lead. 3. Multiple wall motion abnormalities including apical infarct, mid to distal inferoseptal, anterose ptal, anterior, inferior, and apical lateral akinesis. 4. Coronary artery disease. 5. Dementia. 6. Diabetes. 7. V tach, status post ablation. 8. Pacemaker. 9. Neuropathy. 10. Obstructive sleep apnea. 11. Hyperlipidemia. 12. Psoriasis. 13. Hepatitis C. 14. BPH. 15. History of rectus femoris hematoma. ALLERGIES: Sulfa. HOME MEDICATIONS: Tylenol, vitamin C, aspirin, vitamin D3, clonazepam, clopidogrel, cyanocobalamin, donepezil, duloxetine, lamotrigine, levothyroxine, lisinopril, fish oil, ranitidine, sotalol. 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 Lives in . Has a dog. Nonsmoker, nondrinker. FAMILY HISTORY: Parents . PHYSICAL EXAM: VITAL SIGNS: Presenting vitals: Temp 36.7, blood pressure 146/81, pulse 86, breathi ng 16 times a minute, 97% on 3 L. GENERAL: In no acute distress, lying flat. HEENT: Sclerae are a nicteric. Oropharynx clear. Mucous membranes moist. NECK: Supple. No lymphadenopathy or JVD. DOMINICK NGS: Clear to auscultation bilaterally. HEART: S1, S2. Not tachycardic. ABDOMEN: Soft, nontende r, nondistended. LOWER EXTREMITIES: No edema. Calves are nontender. SKIN: Without rash. NEUROLO GIC: Nonfocal. LABS: White count 11, which is slightly high for him. Hematocrit 46, platelets are 249,000. Coags are normal. Sodium 134, potassium 3.8, chloride 98, bicarb 27, BUN 14, creatinine 0.8, glucose 106. BNP is 2160, which is high for him. His [id number] troponin is 0.03. Chest x-ray, interpreted by me, shows AICD in place without pneumothorax, no cardiomegaly, no pulmona ry edema. EKG shows an atrioventricular paced rhythm. I discussed the case with Dr. Jason Miles. ASSESSMENT AND PLAN: An 78-year-old with advanced coronary disease without real targets for revascul arization, presents with chest pain unlike his previous anginal symptoms. 1. Chest pain. I do not believe this represents an anginal equivalent. At this point in time, we w ill observe him on telemetry and cycle troponins. Further workup per Cardiology. 2. History of systolic heart failure. He is euvolemic. We will continue his medications. 3. Dementia. He is asking for a sleeping pill. I will give him a low dose of amlodipine. 4. Prophylaxis. He warrants venous thromboembolism prophylaxis if he is in the hospital longer than 24 hours. For now, we will just provide sequential compression devices. DISPOSITION: Observation status. /[id number]/MODL
[2018-06-13] MEDS ORDERED: PNEUMOC 13-VAL CONJ-DIP CRM/PF 0.5 ML SYR (PREVNAR 13) IM ONE (15:30)
--- NOTE | 2018-06-13 15:39 | PDCARPN ---
Cardiology Progress Note Chief Complaint: Chest pain Assessment/Plan: Assessment: Patient is an 78 y/o male, well known to [employer], with history of CAD s/p anterior myocardial infarction, and known complete total occlusion of LAD, CHF ( ischaemic) with noted VT s/p BiV ICD implant, moderate AI, CVA (2013), dementia , DM, Hep C, TIA (2017), HTN, HLP, and KAILEY, who presented to [facility] ER with complaints of chest discomfort. Symptoms were only noted this morning ( yesterday was without symptoms). Location was left sided, and not related to activity, but similar to symptoms of the past. No radiation into shoulder, neck , or jaw. No PND or orthopnea. Compliance with medical therapy has been good. Regular walking with dog had not precipitated any symptoms. The last outpatient note with Dr. Christopher Lawson (06-05-18) was reviewed. No chest pains were appreciated at that time. While the patient was being assessed this afternoon, mild left pectoralis pains were noted. No radiation into shoulder, neck, or jaw. Plan: (1) Cycle troponins to determine if there is any trend or elevation appreciated. - POC and lab troponin were normal (2) Would arrange for echocardiography for assessment of LVEF (3) Continue therapy on lisinopril for HTN management assistance (4) Sotalol should continue for atrial fibrillation history (and some degree of rate/rhythm control) (5) ASA and Plavix should continue for CAD history (6) Patient has limited interventional options with what has been noted by angiography in the past Subjective: Patient feeling well, but did appreciate chest discomfort while being interviewed this afternoon. Objective: Vital Signs (8 Hrs) Temp Pulse Resp BP Pulse Ox 06/13/18 15:07 36.7 C 74 20 152/80 H 96 06/13/18 13:19 36.8 C 74 14 131/77 H 99 06/13/18 12:00 73 18 146/80 H 97 Intake/Output (24 Hrs) 06/12/18 06/13/18 06/14/18 05:59 05:59 05:59 Intake Total 0 Balance 0 Intake: IV Infused (ml) 0 Other: Weight 77.655 kg Result Diagrams: 06/13/18 09:57 06/13/18 09:57 Cardiac Labs: Cardiac Lab Results (72 Hrs) 06/13/18 14:25 Troponin I < 0.012 EKG: AV paced Telemetry: AV paced rhythm - Physical Exam Constitutional: WDWN, healthy appearing, no apparent distress Eyes: PERRL, EOMI Ears, Nose, Mouth, Throat: moist mucous membranes Cardiovascular: regular rate and rhythm, no murmurs, no rubs, no gallops, pulses symmetric bilat, No jugular vein distention Peripheral Pulses: 2+: dorsalis-pedis (R), dorsalis-pedis (L) Respiratory: clear to auscultate bilat, no crackles, no wheezes Gastrointestinal: normoactive bowel sounds Skin: no rashes, no edema Musculoskeletal: no muscular tenderness Neurologic: AAOx3, CN II-XII grossly intact Psychiatric: cooperative, interactive, following commands ICD10 Worksheet Patient Problems: Problems Problem Status Onset Chest pain Acute ACS (acute coronary syndrome) Acute CHF (congestive heart failure) Acute Left leg weakness Acute Multiple falls Acute Subdural hematoma Acute Thigh contusion Acute Vision changes Acute Vomiting Acute
[2018-06-13] MEDS ORDERED: MAGNESIUM CITRATE 300 ML BOTTLE PO ONE (15:55)
[2018-06-13] MEDS: OMEGA-3 FATTY ACIDS 1,000 MG CAP PO SCH ×2 (16:38→21:19)
[2018-06-13] MEDS ORDERED: clonazePAM 0.5 MG TAB PO SCH (21:00)
[2018-06-13] MEDS ORDERED: DULoxetine 30 MG CAP PO SCH (21:00)
[2018-06-13] MEDS ORDERED: CLOPIDOGREL BISULFATE 75 MG TAB PO SCH (21:00)
[2018-06-13] MEDS ORDERED: LISINOPRIL 5 MG TAB PO SCH (21:00)
[2018-06-13] MEDS ORDERED: DONEPEZIL HCL 5 MG TAB PO SCH (21:00)
[2018-06-13] MEDS: FAMOTIDINE 20 MG TAB PO SCH (21:19)
[2018-06-13] MEDS: SOTALOL HCL 80 MG TAB PO SCH (21:19)
[2018-06-13] MEDS: lamoTRIgine 100 MG TAB PO SCH (21:19)
[2018-06-14] MEDS: OMEGA-3 FATTY ACIDS 1,000 MG CAP PO SCH ×2 (04:31→11:57)
[2018-06-14] MEDS ORDERED: LEVOTHYROXINE 88 MCG TAB PO SCH (06:00)
[2018-06-14] MEDS ORDERED: ASPIRIN 325 MG TAB PO SCH (09:00)
[2018-06-14] MEDS ORDERED: DULoxetine 60 MG CAP PO SCH (09:00)
[2018-06-14] MEDS ORDERED: CHOLECALCIFEROL VIT D3 2,000 UNITS TAB/CAP PO SCH (09:00)
[2018-06-14] MEDS ORDERED: ASCORBIC ACID 500 MG TAB PO SCH (09:00)
[2018-06-14] MEDS ORDERED: CYANO/VITAMIN B12 1000 MCG TAB PO SCH (09:00)
[2018-06-14] MEDS: lamoTRIgine 100 MG TAB PO SCH (09:08)
[2018-06-14] MEDS: FAMOTIDINE 20 MG TAB PO SCH (09:08)
[2018-06-14] MEDS: SOTALOL HCL 80 MG TAB PO SCH (09:08)
[2018-06-14] MEDS: POLYETHYLENE GLYCOL 3350 17 GM PKT PO SCH (09:08)
[2018-06-14] MEDS ORDERED: PERFLUTREN LIPID MICROSPHERES 1.1 MG/ML VIAL IV ONE (10:45)
--- NOTE | 2018-06-14 12:20 | ASMTCMCOM ---
CM Note CM Note Notes: 06/14/2018 Case Management Note Pt admitted for chest pain. ECHO planned. Met w/pt. Pt knwon to case management with recent admission in May. Pt resides at the [facility]. [facility]. Faxed referral to [facility]. Pt lists daughters Juliana [phone] and Ruth [phone]. Case Management d/c poc: resume home care services from [facility] at the [facility]. Case Management to follow. Date Signed: 06/14/2018 12:18 PM Electronically Signed By:Imelda Astudillo RN
--- NOTE | 2018-06-14 14:48 | ECHO ---
[email or web address] [address] [address] Main: [phone] Echocardiography Examination Transthoracic Name: YUAN SWEENEY MR#: [id number] Study Date: 06/14/2018 Study Time: 10:14 AM Date of : 1940 Age: 78 year(s) Height: 170.2 cm (67 in.) Weight: 77.57 kg (171 lb.) BSA: 1.89 m2 Gender: Male Examination: Echo Contrast: 0.165 mg I.V. dose of Definity was administered Image Quality: Adequate Rhythm: Heart Rate: BP: 108 mmHg/62 mmHg Indication: Chest pain/ischemic cardiomyopathy Procedure Staff Referring Physician: Coremaker Supervisor: Charla Liu RDCS Reading Physician: Jason Miles MD Requesting Provider: Ordering Physician: TED Indication: Chest pain/ischemic cardiomyopathy Measurements Chambers AV/MV Label Value Normal Value Label Value Normal Value LVDd, 2D 7 cm (4.2cm - 5.9cm) AV PGmean 3 mmHg LADs, 2D 4.7 cm (3cm - 4cm) AV Vmax 1.12 m/s Additional Vessels MV E Vmax 0.31 m/s Label Value Normal Value MV A Vmax 0.68 m/s AoAsc 3.9 cm MV E/A 0.46 AoRoot, MM 4.3 cm (2.2cm - 3.7cm) MV E/E' lateral 3.2 MV E/E' septal 4.3 (0.45 - 1.25) MV E' septal 0.07 m/s MV E' lateral 0.09 m/s MV E/E' mean 3.88 MV E' mean 0.08 m/s TV/PV Label Value Normal Value OK End floyd Jerrod 1.67 cm/s Conclusions (1) Left ventricular systolic ejection fraction was severely reduced (20-25%) - LV aneurysm was noted Patient: YUAN SWEENEY Study Date: 06/14/2018 Page 1 of 3 10:14 AM - Moderate to severe LV dilation (2) RV size and systolic function was grossly normal - ICD lead noted to the RV chamber (3) Normal atrial dimensions (4) Mild MAC without regurgitation (5) Trileaflet aortic valve with mild AI, mild to moderate sclerosis, but no stenosis (6) Mild TR - RVSP was normal (7) Normal aortic dimensions (8) No pericardial effusion Findings Left Ventricle: No LV apical thrombus as demonstrated by using Definity contrast. The LV apex has an aneurysmal appearance.. Left ventricle is moderately to severely dilated. Systolic left ventricular function is severely reduced. Diastolic Dysfunction is indeterminate. IVS: The septum is intact. Right Ventricle: Normal size right ventricle. Right ventricular systolic function is normal. There is a pacemaker lead noted in the right ventricle. Left Atrium: The left atrium is normal in size. IAS: Normal appearing atrial septum. Right Atrium: The right atrium is normal in size. Mitral Valve: Mild mitral annular calcification.. Mitral valve is normal in appearance. No mitral regurgitation. No mitral valve stenosis. Aortic Valve: Mild aortic regurgitation is present. There is no aortic stenosis. Aortic leaflets exhibit mild to moderate calcification. The aortic valve is probably trileaflet. Tricuspid Valve: There is trace to mild tricuspid regurgitation.. Tricuspid valve leaflets are normal in appearance and function. No tricuspid regurgitation. No tricuspid valve stenosis. Pulmonary artery pressure normal. Pulmonic Valve: Pulmonic leaflets exhibit normal cuspal separation. Mild to moderate pulmonic valve regurgitation is present. There is no pulmonic valve stenosis. Aorta: The aorta is normal. The aortic root size in M-mode measures 4.3 cm. The ascending aorta measures 3.9 cm. Aorta Measurements AoRoot, MM is 4.3 cm. Pulmonary Artery: The pulmonary artery morphology appears normal. IVC: The inferior vena cava is normal in size and course. Pericardium: A pericardial fat pad is present. No pericardial effusion. No pleural effusion present. Exam Details Procedure Ordered: Echo Procedure Status: Routine study Image Quality: Adequate Contrast: 0.165 mg I.V. dose of Definity was administered Patient: YUAN SWEENEY Study Date: 06/14/2018 Page 2 of 3 10:14 AM Facility Location: Cardiac Echo 1 (No Signature Object) Patient: YUAN SWEENEY Study Date: 06/14/2018 Page 3 of 3 10:14 AM [id number]
[2018-06-14 15:09] VITALS: BP 133/76
== END 2018-06-14 15:53 | disposition home or self-care (01) ==
LOC: INTOOBSV 10:40 → F2W 12:52
PROVIDERS: ADMIT Internal Medicine; ATTEND Internal Medicine
DX: R07.89 Other chest pain (principal); I50.22 Chronic systolic (congestive) heart failure; I11.0 Hypertensive heart disease with heart failure; I25.10 Atherosclerotic heart disease of native coronary artery without angina pectoris; I25.5 Ischemic cardiomyopathy; F03.90 Unspecified dementia, unspecified severity, without behavioral disturbance, psychotic disturbance, mood disturbance, and anxiety; I25.2 Old myocardial infarction; Z95.0 Presence of cardiac pacemaker; E11.9 Type 2 diabetes mellitus without complications; Z95.1 Presence of aortocoronary bypass graft; Z23 Encounter for immunization; G47.33 Obstructive sleep apnea (adult) (pediatric)
CPT/HCPCS: 71045; 90670; 93005; 99285; C8929; G0009; G0378; Q9957; 84484-ER